=== PATIENT | male | born 1965 | race Caucasian/White ===

== ENCOUNTER 2023-08-07 09:44 | Outpatient (CLI) | payer MEDICARE, SELFPAY ==
--- NOTE | 2023-08-07 11:00 | NEURO_ITS ---
Impression: # Complains of left hand numbness. Not diabetic. # Left sensory Carpal Tunnel Syndrome. 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 # Normal needle/EMG exam. Nerve Conduction Studies Anti Sensory Summary Table Stim Site NR Peak (ms) P-T Amp (?V) Site1 Site2 Delta-P (ms) Dist (cm) John (m/s) Left Median Anti Sensory (2-3nd Digit) Wrist 4.4 9.3 Wrist 2-3nd Digit 4.4 14.0 32 Wrist 4.5 16.5 Wrist 2-3nd Digit 4.4 14.0 32 Left Radial Anti Sensory (Base 1st Digit) Wrist 2.1 30.2 Wrist Base 1st Digit 2.1 0.0 Left Ulnar Anti Sensory (5th Digit) Wrist 2.7 27.7 Wrist 5th Digit 2.7 14.0 52 Motor Summary Table Stim Site NR Onset (ms) O-P Amp (mV) Site1 Site2 Delta-0 (ms) Dist (cm) John (m/s) Left Median Motor (Abd Poll Brev) Wrist 3.7 6.0 Elbow Wrist 6.4 31.0 48 Elbow 10.1 2.9 Left Ulnar Motor (Abd Dig Minimi) Wrist 2.5 4.2 A Elbow Wrist 6.9 32.0 46 A Elbow 9.4 3.0 B Elbow Wrist 4.4 22.0 50 B Elbow 6.9 3.5 F Wave Studies NR F-Lat (ms) L-R F-Lat (ms) Left Median (Mrkrs) (Abd Poll Brev) 30.63 Left Ulnar (Mrkrs) (Abd Dig Min) 30.23 EMG Side Muscle Nerve Root Ins Act Fibs Amp Dur Recrt Comment Left 1stDorInt Ulnar C8-T1 Nml Nml Nml Nml Nml Left Ext Indicis Radial (Post Int) C7-8 Nml Nml Nml Nml Nml Left Ext Digitorum Radial (Post Int) C7-8 Nml Nml Nml Nml Nml Left BrachioRad Radial C5-6 Nml Nml Nml Nml Nml Left PronatorTeres Median C6-7 Nml Nml Nml Nml Nml Left Abd Poll Brev Median C8-T1 Nml Nml Nml Nml Nml Left ABD Dig Min Ulnar C8-T1 Nml Nml Nml Nml Nml MTDD
== END 2023-08-07 09:45 | disposition home or self-care (01) ==
LOC: ANHNEURO 09:49
PROVIDERS: PCP Internal Medicine; Visit Provider Internal Medicine
DX: G56.02 Carpal tunnel syndrome, left upper limb (principal); G56.22 Lesion of ulnar nerve, left upper limb
CPT/HCPCS: 95886; 95909

== ENCOUNTER 2023-10-04 06:00 | Day surgery (SDC) | payer MEDICARE, SELFPAY ==
[2023-09-21 10:17] VITALS: BMI 35.2
--- NOTE | 2023-10-03 10:00 | P.PNAN_ITS ---
Anes - Eval Pre Procedure Procedure: Operation Date: 10/04/23 07:30 Proposed Procedures p Endoscopic Left Carpal Tunnel Release, Possible Open Carpal Tunnel Release - Karina Sanders MD s Left Cubital Tunnel Release - Karina Sanders MD Date/Time: 10/03/23 10:00 Pre Op Diagnosis: Left Carpal Tunnel and Lesion Left Ulnar Nerve Patient Data Age: 58 Gender: M Height: 1.78 m Weight: 111.5 kg Allergies Allergy/AdvReac Type Severity Reaction Status Date / Time Penicillins Allergy Mild Hives Verified 09/21/23 10:23 Home Medications Medication Instructions Recorded Confirmed Type allopurinol 100 mg tablet 100 mg PO DAILY 09/12/23 09/21/23 History amlodipine 10 mg tablet 10 mg PO DAILY 09/12/23 09/21/23 History atorvastatin 20 mg tablet 20 mg PO DAILY 09/12/23 09/21/23 History buspirone 30 mg tablet 30 mg PO BID 09/12/23 09/21/23 History calcitriol 0.25 mcg capsule 0.25 mcg PO DAILY 09/12/23 09/21/23 History cariprazine 6 mg capsule (Vraylar) 6 mg PO DAILY 09/12/23 09/21/23 History cholecalciferol (vitamin D3) 1,250 1,250 mcg PO WEEKLY 09/12/23 09/21/23 History mcg (50,000 unit) capsule dapagliflozin propanediol 5 mg 5 mg PO DAILY 09/12/23 09/21/23 History tablet (Farxiga) doxazosin 2 mg tablet 2 mg PO DAILY 09/12/23 09/21/23 History lisinopril 40 mg tablet 40 mg PO DAILY 09/12/23 09/21/23 History metformin 1,000 mg tablet 1,000 mg PO BID 09/12/23 09/21/23 History propranolol 40 mg tablet 40 mg PO Q12H 09/12/23 09/21/23 History quetiapine 25 mg tablet 25 mg PO TID 09/12/23 09/21/23 History vortioxetine 20 mg tablet 20 mg PO DAILY 09/12/23 09/21/23 History (Trintellix) testosterone 100 mg/mL 100 mg IM DIRECTED 09/21/23 09/21/23 History intramuscular suspension Results Review: All pre-operative results and documents have been reviewed as part of the pre- operative evaluation. FORMERLY [facility], [facility] Past Medical History Medical History (Updated 10/03/23 @ 10:03 by Joe Merchant Jr., CRNA) Anxiety BPH (benign prostatic hyperplasia) Depression Diabetes Entrapment of left ulnar nerve at elbow Gout HTN (hypertension) with goal to be determined Hyperlipidemia Left carpal tunnel syndrome Social History Social History Smoking status: Never smoker Second hand tobacco smoke exposure: Yes Substance use type: does not use Living arrangements: with family Spiritual care concerns: No Exam Day of Procedure 10/03/23 10:00 Patient weight: obese
--- NOTE | 2023-10-03 10:20 | P.PNAN_ITS ---
Anes - Initial Pre Proc Eval Procedure: Operation Date: 10/04/23 07:30 Proposed Procedures p Endoscopic Left Carpal Tunnel Release, Possible Open Carpal Tunnel Release - Karina Sanders MD s Left Cubital Tunnel Release - Karina Sanders MD Date/Time: 10/03/23 10:20 Surgeon: Karina Sanders MD Pre Op Diagnosis: Left Carpal Tunnel and Lesion Left Ulnar Nerve Patient Data Age: 58 Gender: M Height: 1.78 m Weight: 111.5 kg Allergies Allergy/AdvReac Type Severity Reaction Status Date / Time Penicillins Allergy Mild Hives Verified 10/04/23 06:15 Home Medications Medication Instructions Recorded Confirmed Type allopurinol 100 mg tablet 100 mg PO DAILY 09/12/23 10/04/23 History amlodipine 10 mg tablet 10 mg PO DAILY 09/12/23 10/04/23 History atorvastatin 20 mg tablet 20 mg PO DAILY 09/12/23 10/04/23 History buspirone 30 mg tablet 30 mg PO BID 09/12/23 10/04/23 History calcitriol 0.25 mcg capsule 0.25 mcg PO DAILY 09/12/23 10/04/23 History cariprazine 6 mg capsule (Vraylar) 6 mg PO DAILY 09/12/23 10/04/23 History cholecalciferol (vitamin D3) 1,250 1,250 mcg PO WEEKLY 09/12/23 10/04/23 History mcg (50,000 unit) capsule dapagliflozin propanediol 5 mg 5 mg PO DAILY 09/12/23 10/04/23 History tablet (Farxiga) doxazosin 2 mg tablet 2 mg PO DAILY 09/12/23 10/04/23 History lisinopril 40 mg tablet 40 mg PO DAILY 09/12/23 10/04/23 History metformin 1,000 mg tablet 1,000 mg PO BID 09/12/23 10/04/23 History propranolol 40 mg tablet 40 mg PO Q12H 09/12/23 10/04/23 History quetiapine 25 mg tablet 25 mg PO TID 09/12/23 10/04/23 History vortioxetine 20 mg tablet 20 mg PO DAILY 09/12/23 10/04/23 History (Trintellix) testosterone 100 mg/mL 100 mg IM DIRECTED 09/21/23 10/04/23 History intramuscular suspension Patient hx anesthesia problems: none Family hx anesthesia problems: none Results Review: All pre-operative results and documents have been reviewed as part of the pre- operative evaluation. FORMERLY [facility], [facility] Past Medical History Medical History Anxiety BPH (benign prostatic hyperplasia) Depression Diabetes Entrapment of left ulnar nerve at elbow Gout HTN (hypertension) with goal to be determined Hyperlipidemia Left carpal tunnel syndrome Social History Social History Smoking status: Never smoker Second hand tobacco smoke exposure: Yes Substance use type: does not use Living arrangements: with family Spiritual care concerns: No Anes - Eval Final PreProcedure Day of Procedure 10/03/23 10:20 Patient weight: obese Results Review: All pre-operative results and documents have been reviewed as part of the pre- operative evaluation. Informed Consent: The patient's anesthetic plan and its attendant risks and benefits were discussed with the patient/family/POA. Questions were solicited and answers provided to the satisfaction of the patient/family/POA.
[2023-10-04 06:16] VITALS: BP 141/91; PULSE 71; RESP 15; O2SAT 96
[2023-10-04 06:31] LABS: Glucose Point of Care 131 mg/dl (65-105)
--- NOTE | 2023-10-04 06:51 | WPDHPUPDATE1 ---
History and Physical Update Update Date/Time: 10/04/23 06:51 Patient seen and examined in pre-operative holding area. No interval change in medical history or symptoms. Patient recalls previous discussion of benefits and alternatives to procedure. Continues to desire to proceed with left endoscopic possible open carpal tunnel release and left cubital tunnel release. Reviewed procedure, post-op expectations and risks including but not limited to bleeding, infection, injury to tendon/nerve/vessel, decreased hand function, stiffness, RSD, no change or worsening of symptoms. I discussed the possible use of assistants and their participation in the case. Patient stated understanding and signed the consent form wishing to proceed.
--- NOTE | 2023-10-04 06:51 | W.PM.PROC2 ---
Procedure Note - Detailed Date of Procedure 10/04/23 Pre-op Diagnosis Left Carpal Tunnel and cubital tunnel syndrome Post-op Diagnosis Same Procedure Performed left ectr and CuTR Surgeon Karina Sanders MD Rn Document Improvement Specialist john ayala pa-c Anesthesia MAC Description of Procedure INFORMED CONSENT: The patient was seen and examined and marked in the pre-op area.? The patient signed the consent form. PROCEDURE IN DETAIL:The patient taken back to OR on the stretcher in supine position. Time out performed with anesthesia, surgeon and staff agreeing on patient's name site and surgery to be performed SCDs were placed on the lower extremities and inflated. A tourniquet was placed on {left} upper extremity and antibiotics given IV After anesthesia administered sedation I injected {10}cc 1%lido with epi and 0.5% marcaine plain at the operative sites The?{left upper extremity}?was prepped and draped in sterile fashion the??{left upper extremity} was? exsanguinated with Esmarch bandage and tourniquet inflated to 250mmHg I made a transverse incision in the {left} volar distal wrist crease through skin and dermis with 15 blade scalpel.? Littler scissors spread down to antebrachial fascia. A small incision was made in antebrachial fascia allowing access to Carpal tunnel. I proceeded with sequential dilation staying in line with the ring finger and hugging the hook of the hamate.? I then used the synovial elevator to free any adhesions from the underside of the transverse carpal ligament. Next I was able to insert the Microaire endoscopic carpal tunnel device with direct visualization of the transverse fibers on the monitor and proceeded with complete segmental retrograde release of the ligament in its entirety.? I irrigated with normal saline and closed with 4-0 monocryl for dermis and subcuticular closure. I next proceeded with making a longitudinal incision between two heads for flexor carpi ulnaris at end of {left} cubital tunnel with 15 blade scalpel.? Littler scissors were used to spread down to FCU fascia.? An incision was made in FCU fascia and ulnar nerve identified exiting cubital tunnel.? I proceeded with complete retrograde release of the cubital tunnel including 7cm proximal for the intermuscular septum.? The nerve was round though a central section was somewhat white and sclerotic in appearance. epineurolysis did not yield any change in appearance.? There was no subluxation on full elbow range of motion. ? I irrigated with normal saline and closure with 4-0 monocryl for dermis and subcuticular. The incisions were covered with Dermabond then 4x4s, colette, and a posterior elbow and volar wrist splint for patient safety, security and comfort and secured with venus bandages after the tourniquet was let down noting the hand was warm and well perfused.? Patient awaken from anesthesia and transferred to recovery in stable condition Complications - none EBL- 1cc Disposition - home in stable conditions john ayala pa-c was essential for positioning, retraction, closure and dressing placement [facility] Billing Surgery - Charge Forward: Surgery Billing ([id number] and [id number] for john)
[2023-10-04] MEDS: LACTATED RINGERS 1,000 ML 30 ML IV CONT (06:53)
[2023-10-04] MEDS: CLINDAMYCIN 900 MG/NS 50 ML 900 MG/50 ML PIGGYBACK 50 MG IVPB (07:07)
[2023-10-04] MEDS: BUPivacaine HCL 0.5% 10 ML AMP 5 ML INFILTRATE (07:29)
[2023-10-04] MEDS: LIDO 1%/EPINEPHRINE 1:100,000 10 ML VIAL 5 ML INFILTRATE (07:29)
[2023-10-04 08:00] VITALS: BP 102/69; PULSE 73; RESP 16; O2SAT 94
[2023-10-04 08:10] VITALS: BP 106/71; PULSE 65; RESP 20; O2SAT 94
--- NOTE | 2023-10-04 08:19 | WPDANESPN ---
Anes - Prog Note Post-Op Date/Time: 10/04/23 08:19 Cardiovascular status: normal Respiratory status: normal Airway patency: baseline Mental status: baseline Post-Op hydration status: normal Vital Signs: Last Vital Signs Pulse 65 10/04/23 08:10 Resp 20 10/04/23 08:10 BP 106/71 10/04/23 08:10 Pulse Ox 94 10/04/23 08:10 O2 Del Method Room Air 10/04/23 08:10 Pain Score (VAS): 0/10 10/04/23 06:23 POC Capillary Glucose 131 H Patient Feedback: Patient satisfied with anesthetic care.
[2023-10-04 08:20] VITALS: BP 109/76; PULSE 64; RESP 20
== END 2023-10-04 08:36 | disposition home or self-care (01) ==
PROVIDERS: PCP Internal Medicine; Visit Provider Plastic Surgery
PROC: 01N54ZZ Release Median Nerve, Percutaneous Endoscopic Approach (ICD-10-PCS; CPT 29848; principal; 2023-10-04 07:30)
PROC: (CPT 64718; 2023-10-04 07:30)
DX: G56.02 Carpal tunnel syndrome, left upper limb (principal); G56.22 Lesion of ulnar nerve, left upper limb
CPT/HCPCS: 29848; 64718

== ENCOUNTER 2024-06-05 09:46 | Outpatient (CLI) | payer MEDICARE, MEDICAID, SELFPAY ==
--- NOTE | 2024-06-05 10:11 | ECG_ITS ---
Test Date: 2024-06-05 10:18:31 Measurements Intervals [place] Rate: 61 P: 43 UT: 176 QRS: 36 QRSD: 97 T: 52 QT: 395 QTc: 399 Interpretive Statements SINUS RHYTHM NORMAL ECG No previous ECG available for comparison Electronically Signed On 06-05-2024 10:31:14 CDT by Micha Kumar D.O.
--- OUTSIDE RECORDS SUMMARY | 2024-06-05 10:23 | XMS_ITS ---
Author Organization [facility] Office Address [address] [facility] [address] [facility] [address] [place] [address] Care Team Providers Care Sole Filler Name Role Phone Danyel Tello Unavailable [phone] MEDICATIONS Medication SIG (Take, Route, Frequency, Duration) Notes Start Date End Date Status Cardura 2 MG 1 tablet Orally Once a day for 90 days 03/15/2022 Active Calcitriol 0.25 MCG 1 capsule Orally Onc e a day for 90 day(s) 11/01/2022 04/13/2024 Active Doxazosin Mesylate 2 MG 1 tablet Orally Once a day for 90 days 11/01/2022 Active Allopurinol 100 MG TAKE 1 TABLET BY GIANCARLO TH EVERY DAY for 90 Active Encounters Encounter Location Date Provider Diagnosis [facility] [address] [facility] [address] [place] [address] 02/06/2024 Danyel Tello Chronic kidney disea se, stage 3 unspecified N18.30 ; Essential (primary) hypertension I10 ; Hypo-osmolality and hyponatremia E87.1 and Renal osteodystrophy N25.0 ASSESSMENTS Encounter Date Diagnosis Assessment Notes Treatment Notes Treatment Clinical Notes Section Notes 02/06/2024 Chronic kidney disease, stage 3 unspecified (ICD-10 - N18.30) 02/06/2024 Essential (primary) hypertension (ICD-10 - I10) 02/06/2024 Hypo-osmolality and hyponatremia (ICD-10 - E87.1) 02/06/2024 Renal osteodystrophy (ICD-10 - N25.0) PLAN OF TREATMENT Next Appt Details Provider Name:Danyel Tello , 08/20/2024 02:45:00 PM, [address] [facility], [facility] [address], [place], [address], Progress Notes * GUANACO ECHEVARRIADOB: [birth year] (59 yo M)Acc No.[id number]:02/06/2024 Progress Notes Patient: GUANACO ECHEVARRIA Provider: MD SHAHLA, CarolinC.P, F.A.S.N. :1965 Age:59 Y Sex:Male Date:02/06/2024 Address:[address] [place] [address] Subjective: * Chief Complaints: * * Medical History: * Medications: Taking Cardura 2 MG Tablet 1 tablet Orally Once a day , Taking Doxazosin Mesylate 2 MG Tablet 1 tablet Orally Once a day , Taking Calcitriol 0.25 MCG Capsule 1 capsule Orally Once a day , stop date 04/13/2024, Taking Allopurinol 100 MG Tablet TAKE 1 TABLET BY MOUTH EVERY DAY Objective: Assessment: * Assessment: 1. Chronic kidney disease, stage 3 unspecified - N18.30 2. Essential (primary) hypertension - I10 3. Hypo-osmolality and hyponatremia - E87.1 4. Renal osteodystrophy - N25.0 Plan: * Treatment: * Billing Information: * Visit Code: [id number] Office Visit, Est Pt., Level 4. * Procedure Codes: * Sign off status: Pending * Provider: MD SHAHLA, Lukasz.[place].C.P, F.A.S.N. Date: 02/06/2024
--- OUTSIDE RECORDS SUMMARY | 2024-06-05 10:23 | XMS_ITS ---
Author Organization [facility] [place] Address [address] [place] [address] Care Team Providers Care Case Advocate Name Role Phone Jaime Fall MD Primary Care Provider Maninder Al Unavailable [phone] Allergies Allergen (clinical drug ingredient) Drug/Non Drug Allergy documented on EMR Reaction Allergy Type Onset Date Status amoxicillin Amoxicillin Unknown Drug Allergy 06/20/2023 Ac tive Substance with penicillin structure and antibacterial mechanism of action (substance) Penicillins Unknown Drug Allergy 06/20/2023 Active REASON FOR VISIT Follow up medication eval Medications Medication SIG (Take, Route, Frequency, Duration) Notes Start Date End Date Status ACCU-CHEK GUIDE ME GLUCOSE METER *Reorder from [facility] for eRx and Interaction Alerts* 06/20/2023 Active Testosterone Cypionate 200 MG/ML Intramuscular 06/20/2023 Active metFORMIN HCl 1000 MG Oral 06/20/2023 Active Doxazosin Mesylate 2 MG Oral 06/20/2023 Active Allopurinol 100 MG Oral 06/20/2023 Active ACCU-CHEK GUIDE TEST STRIPS *Reorder from [facility] for eRx and Interaction Alerts* 06/20/2023 Active amLODIPine Besylate 10 MG Oral 06/20/2023 Active Ergocalciferol 1.25 MG (35737 UT) Oral 06/20/2023 Active ACCU-CHEK FASTCLIX LANCET DRUM MISCELLANEOUS *Reorder from [facility] for eRx and Interaction Alerts* 06/20/2023 Active Lisinopril 40 MG Oral 06/20/2023 Ac tive Calcitriol 0.25 MCG Oral 06/20/2023 Active Trintellix 20 MG 1 tablet Oral Once a day for 90 days Active Atorvastatin Calcium 20 MG Oral 06/20/2023 Active Vraylar 6 mg 1 tablet Oral daily for 90 days Active Farxiga 5 MG Oral 06/20/2023 Active QUEtiapine Fumarate 25 MG 3 tablets Oral daily for 90 days take 2 tablets it the morning and 1 tablet at bedtime Active Propranolol HCl 40 MG 1 tablet Oral Twic e a day for 90 days Active busPIRone HCl 30 MG 1 tablet Oral Twice a day for 90 days Active Social History Tobacco Use: Social History Observation Description Date Details (start date - stop date) Never Smoker NA - NA Sex Assigned At : Social History Observation Description Sex Assigned At Male Tobacco Control (Standard) Question Answer Notes Tobacco use: Nonsmoker AUDIT-C (Standard) Question Answer Notes Did you have a drink containing alcohol in the p ast year? No Vital Signs Blood pressure systolic 145 mm Hg 03/20/19 25 Blood pressure diastolic 87 mm Hg 025 Heart Rate 70 /min 03/20/2024 Height 70.00 in 03/20/2024 Weight 251 lbs 03/20/2024 BMI 36.01 kg/m2 03/20/2024 Height-cm 177.80 cm 03/20/2024 Weight-kg 113.85 kg 03/20/2024 Encounters Encounter Location Date Provider Diagnosis [facility] [address] [address] 03/20/2024 Maninder Collins Generalized anxiety disorder F41.1 ; Bipolar disorder, unspecified F31.9 ; Obsessive-compulsive disorder, unspecified F42.9 and Panic disorder [episodic paroxysmal anxiety] without agoraphobia F41.0 Assessments Encounter Date Diagnosis (ICD Code) Assessment Notes Treatment Notes Treatment Clinical Notes Section Notes 03/20/2024 Generalized anxiety disorder (ICD-10 - F41.1) 1. Bipolar Disorder: - Patient reports a couple of mild depressive episodes but no manic or hypomanic episodes since the last visit in December. - Currently on quetiapine 25 mg (2 tablets in the morning, 1 at bedtime), Trintellix 20 mg daily, and Vraylar 6 mg daily. Plan: - Continue the current medication regimen as it appears to be effective. - Monitor for any changes in mood or new episodes. 2. Anxiety: - Patient reports anxiety has been manageable, with some recent stress due to a friend's hospitalization. - Currently on BuSpar 30 mg twice a day and Propranolol 40 mg twice a day. Plan: - Continue the current medication regimen. - Encourage the patient to utilize coping strategies and seek support as needed. 3. Obsessive-Compuls kera Disorder (OCD): - Patient reports significant improvement in OCD symptoms with the current medication regimen. Plan: - Continue Vraylar, Trintellix, and Seroquel as they seem to be effective in managing OCD symptoms. - Monitor for any changes or worsening of symptoms. 4. Panic Attacks: - Patient reports a couple of mild panic attacks, managed with leftover Xanax. Plan: - Continue monitoring the frequency and severity of panic attacks. - Consider discussing a PRN medication for panic attacks if they become more frequent or severe. 5. Sleep Disturbance: - Patient reports difficulty sleeping last night and occasional waking up in the middle of the night. Plan: - Monitor sleep patterns and consider adjustments to the medication regimen or the addition of sleep hygiene strategies if sleep disturbances persist or worsen. 6. Medication refills: Plan: - All prescriptions have been sent to [facility] for a 90-day supply with one refill. 7. Follow-up: - Schedule a follow-up appointment in 4 months. Overall, the patient's mental health appears to be stable with the current medication regimen. Encourage the patient to report any changes in symptoms or new concerns. Continue to monitor and adjust treatment as needed. 03/20/2024 Bipolar disorder, unspecified (ICD-10 - F31.9) 1. Bipolar Disorder: - Patient reports a couple of mild depressive episodes but no manic or hypomanic episodes since the last visit in December. - Currently on quetiapine 25 mg (2 tablets in the morning, 1 at bedtime), Trintellix 20 mg daily, and Vraylar 6 mg daily. Plan: - Continue the current medication regimen as it appears to be effective. - Monitor for any changes in mood or new episodes. 2. Anxiety: - Patient reports anxiety has been manageable, with some recent stress due to a friend's hospitalization. - Currently on BuSpar 30 mg twice a day and Propranolol 40 mg twice a day. Plan: - Continue the current medication regimen. - Encourage the patient to utilize coping strategies and seek support as needed. 3. Obsessive-Compuls kera Disorder (OCD): - Patient reports significant improvement in OCD symptoms with the current medication regimen. Plan: - Continue Vraylar, Trintellix, and Seroquel as they seem to be effective in managing OCD symptoms. - Monitor for any changes or worsening of symptoms. 4. Panic Attacks: - Patient reports a couple of mild panic attacks, managed with leftover Xanax. Plan: - Continue monitoring the frequency and severity of panic attacks. - Consider discussing a PRN medication for panic attacks if they become more frequent or severe. 5. Sleep Disturbance: - Patient reports difficulty sleeping last night and occasional waking up in the middle of the night. Plan: - Monitor sleep patterns and consider adjustments to the medication regimen or the addition of sleep hygiene strategies if sleep disturbances persist or worsen. 6. Medication refills: Plan: - All prescriptions have been sent to [facility] for a 90-day supply with one refill. 7. Follow-up: - Schedule a follow-up appointment in 4 months. Overall, the patient's mental health appears to be stable with the current medication regimen. Encourage the patient to report any changes in symptoms or new concerns. Continue to monitor and adjust treatment as needed. 03/20/2024 Obsessive-compu lsive disorder, unspecified (ICD-10 - F42.9) stable 1. Bipolar Disorder: - Patient reports a couple of mild depressive episodes but no manic or hypomanic episodes since the last visit in December. - Currently on quetiapine 25 mg (2 tablets in the morning, 1 at bedtime), Trintellix 20 mg daily, and Vraylar 6 mg daily. Plan: - Continue the current medication regimen as it appears to be effective. - Monitor for any changes in mood or new episodes. 2. Anxiety: - Patient reports anxiety has been manageable, with some recent stress due to a friend's hospitalization. - Currently on BuSpar 30 mg twice a day and Propranolol 40 mg twice a day. Plan: - Continue the current medication regimen. - Encourage the patient to utilize coping strategies and seek support as needed. 3. Obsessive-Compuls kera Disorder (OCD): - Patient reports significant improvement in OCD symptoms with the current medication regimen. Plan: - Continue Vraylar, Trintellix, and Seroquel as they seem to be effective in managing OCD symptoms. - Monitor for any changes or worsening of symptoms. 4. Panic Attacks: - Patient reports a couple of mild panic attacks, managed with leftover Xanax. Plan: - Continue monitoring the frequency and severity of panic attacks. - Consider discussing a PRN medication for panic attacks if they become more frequent or severe. 5. Sleep Disturbance: - Patient reports difficulty sleeping last night and occasional waking up in the middle of the night. Plan: - Monitor sleep patterns and consider adjustments to the medication regimen or the addition of sleep hygiene strategies if sleep disturbances persist or worsen. 6. Medication refills: Plan: - All prescriptions have been sent to [facility] for a 90-day supply with one refill. 7. Follow-up: - Schedule a follow-up appointment in 4 months. Overall, the patient's mental health appears to be stable with the current medication regimen. Encourage the patient to report any changes in symptoms or new concerns. Continue to monitor and adjust treatment as needed. 03/20/2024 Panic disorder [episodic paroxysmal anxiety] without agoraphobia (ICD-10 - F41.0) stable 1. Bipolar Disorder: - Patient reports a couple of mild depressive episodes but no manic or hypomanic episodes since the last visit in December. - Currently on quetiapine 25 mg (2 tablets in the morning, 1 at bedtime), Trintellix 20 mg daily, and Vraylar 6 mg daily. Plan: - Continue the current medication regimen as it appears to be effective. - Monitor for any changes in mood or new episodes. 2. Anxiety: - Patient reports anxiety has been manageable, with some recent stress due to a friend's hospitalization. - Currently on BuSpar 30 mg twice a day and Propranolol 40 mg twice a day. Plan: - Continue the current medication regimen. - Encourage the patient to utilize coping strategies and seek support as needed. 3. Obsessive-Compuls kera Disorder (OCD): - Patient reports significant improvement in OCD symptoms with the current medication regimen. Plan: - Continue Vraylar, Trintellix, and Seroquel as they seem to be effective in managing OCD symptoms. - Monitor for any changes or worsening of symptoms. 4. Panic Attacks: - Patient reports a couple of mild panic attacks, managed with leftover Xanax. Plan: - Continue monitoring the frequency and severity of panic attacks. - Consider discussing a PRN medication for panic attacks if they become more frequent or severe. 5. Sleep Disturbance: - Patient reports difficulty sleeping last night and occasional waking up in the middle of the night. Plan: - Monitor sleep patterns and consider adjustments to the medication regimen or the addition of sleep hygiene strategies if sleep disturbances persist or worsen. 6. Medication refills: Plan: - All prescriptions have been sent to [facility] for a 90-day supply with one refill. 7. Follow-up: - Schedule a follow-up appointment in 4 months. Overall, the patient's mental health appears to be stable with the current medication regimen. Encourage the patient to report any changes in symptoms or new concerns. Continue to monitor and adjust treatment as needed. Plan Of Treatment Medication Medication Name Sig Start Date Stop Date Notes Trintellix 20 MG 1 tablet Oral Once a day for 90 days Vraylar 6 mg 1 tablet Oral daily for 90 days QUEtiapine Fumarate 25 MG 3 tablets Oral daily for 90 days Propranolol HCl 40 MG 1 tablet Oral Twic e a day for 90 days busPIRone HCl 30 MG 1 tablet Oral Twice a day for 90 days Treatment Notes Assessment Notes Obsessive-compulsive disorder, unspecifi ed stable Panic disorder [episodic paroxysmal anxi ety] without agoraphobia stable Next Appt Details Follow Up: 3 Months, Reason: f/u bipolar d/o Provider Name:Maninder aguayo, 06/09/2024 09:00:00 AM, [address], [facility] [address], [place], [address], Progress Notes * GUANACO ECHEVARRIADOB: [birth year] (59 yo M)Acc No.[id number]:03/20/2024 Patient: GUANACO FIORE Provider: SCAR OVIEDOHNP :1965 A ge:59 Y S ex:Male Date:03/20/2024 Address:[address] [place], [place] [id number] Pcp:Jaime Fall MD Subjective: * Chief Complaints: * F ollow up medication eval * HPI: D epression Screening: the note is transcribed using speech recognition software. It is a reflection of a visit with the patient. It might have some inaccuracy, including medication names and transcribing errors, though efforts have been made to correct them. Chief complaint- Depression, anxiety, OCD, sleep disturbances. The patient reports experiencing a couple of depressive episodes since the last visit in December, though not severe and able to shake off . No manic or hypomanic episodes reported. Sleep disturbances are noted, with the patient waking at 2:30 AM and sometimes remaining awake. The patient reports some recent stress due to a best friend's hospitalization for heart failure. OCD symptoms have significantly improved with the current medication regimen of Vraylar, Trintellix, and Seroquel. The patient denies any medication-related problems. The patient experienced a couple of panic attacks, described as not really bad . These attacks were managed with previously prescribed Xanax. The patient reports difficulty identifying triggers for these panic attacks. The patient's current medication regimen includes BuSpar 30 mg twice a day, Propranolol 40 mg twice a day, Quetiapine 25 mg (2 tablets in the morning, one at bedtime), Trintellix 20 mg daily,Vraylar 6 mg daily, and Xanax as needed for panic attacks. The patient reports feeling stressed due to a best friend being hospitalized with heart failure. Coping mechanisms include engaging in Bible reading. The patient also mentions experiencing hip pain. JOSÉ-7 (2018 Edition) F eeling nervous, anxious, or on edge?Several days, N ot being able to stop or control worrying S everal days, W orrying too much about different things S everal days, T rouble relaxing S everal days, B eing so restless that it is hard to sit still S everal days, B ecoming easily annoyed or irritable S everal days, F eeling afraid as if something awful might happen S everal days, If you checked any problems, how difficult have they made it for you to do your work, take care of things at home, or get along with other people? S omewhat difficult. C [place]-Suicide Severity Rating Scale: Suicide Risk (CSRS-screener) i n the past one month Have you wished you were or wished you could go to sleep and not wake up? N o, i n the past one month Have you actually had any thoughts of killing yourself? N o, H ave you ever done anything, started to do anything, or prepared to do anything to end your life? N o. D epression screening: PHQ-9 L ittle interest or pleasure in doing things S everal days, F eeling down, depressed, or hopeless S everal , T rouble falling or staying asleep, or sleeping too much S everal days, F eeling tired or having little energy N ot at all, P oor appetite or overeating N ot at all, F eeling bad about yourself or that you are a failure, or have let yourself or your family down S everal days, T rouble concentrating on things, such as reading the newspaper or watching television S ever, M oving or speaking so slowly that other people could have noticed; or the opposite, being so fidgety or restless that you have been moving around a lot more than usual N ot at all, T houghts that you would be better off or of hurting yourself in some way N ot at all, T otal Score 5, I nterpretation M ild Depression. I ntervention D epression Screening Findings?Negative, S uicide Risk Assessment Performed . H istory of Presenting Problem: Medication Side Effects d enies side effects. A nxiety?symptoms are stable. Has had a couple panic attacks, mild. Xanax helped. Quality of OCD Symptoms: o bsessive, fearful thoughts; o bsessive, worrying thoughts; c ompulsive, anxiety decreasing behaviors Associated Symptoms OCD: c hecking, saying phrases in my head, intrusive thoughts, routines Obsessive Compulsive Severity: m oderateNotes:persistent , but states it is manageable.. D epression c ouple depressive episodes, mild. Didn't last long. . M ood lability b ipolar d/o. S leep disturbance g ets up in the night. * Medical History: * Surgical History: * Hospitalization/Major Diagno stic Procedure: * Social History: T obacco Use: T obacco Control (Standard) T obacco use: N onsmoker. M igrated Social History: M igrated Social History: Alcohol Intake: None 05/17/2019,Tobacco Years: Never smoker 05/17/2019. D rug/Alcohol: A MELITON-C (Standard) D id you have a drink containing alcohol in the past year? N o.? M iscellaneous: A dvance Care Planning A re you your own decision-maker Y es, D o you have Power of Athletic Agent for Health or Medical? N o. * Medications: T akingAtorvastatin Calcium 20 MG Tablet Oral Farxiga 5 MG Tablet Oral Calcitriol 0.25 MCG Capsule Oral Ergocalciferol 1.25 MG (26262 UT) Capsule Oral ACCU-CHEK GUIDE TEST STRIPS , Notes to Pharmacist: *Reorder from [facility] for eRx and Interaction Alerts*amLODIPine Besylate 10 MG Tablet Oral ACCU-CHEK FASTCLIX LANCET DRUM EACH MISCELLANEOUS , Notes to Pharmacist: *Reorder from [facility] for eRx and Interaction Alerts*Lisinopril 40 MG Tablet Oral Allopurinol 100 MG Tablet Oral metFORMIN HCl 1000 MG Tablet Oral Doxazosin Mesylate 2 MG Tablet Oral ACCU-CHEK GUIDE ME GLUCOSE METER , Notes to Pharmacist: *Reorder from [facility] for eRx and Interaction Alerts*Testosterone Cypionate 200 MG/ML Solution Intramuscular busPIRone HCl 30 MG Tablet 1 tablet Oral Twice a day QUEtiapine Fumarate 25 MG Tablet 3 tablets Oral daily take 2 tablets it the morning and 1 tablet at bedtimePropranolol HCl 40 MG Tablet 1 tablet Oral Twice a day Trintellix 20 MG Tablet 1 tablet Oral Once a day Vraylar 6 mg Capsule 1 tablet Oral daily Medication List reviewed and reconciled with the patientTaking Atorvastatin Calcium 20 MG Tablet Oral Taking Farxiga 5 MG Tablet Oral Taking Calcitriol 0.25 MCG Capsule Oral Taking Ergocalciferol 1.25 MG (53313 UT) Capsule Oral Taking ACCU-CHEK GUIDE TEST STRIPS , Notes to Pharmacist: *Reorder from [facility] for eRx and Interaction Alerts*Taking amLODIPine Besylate 10 MG Tablet Oral Taking ACCU-CHEK FASTCLIX LANCET DRUM EACH MISCELLANEOUS , Notes to Pharmacist: *Reorder from [facility] for eRx and Interaction Alerts*Taking Lisinopril 40 MG Tablet Oral Taking Allopurinol 100 MG Tablet Oral Taking metFORMIN HCl 1000 MG Tablet Oral Taking Doxazosin Mesylate 2 MG Tablet Oral Taking ACCU-CHEK GUIDE ME GLUCOSE METER , Notes to Pharmacist: *Reorder from [facility] for eRx and Interaction Alerts*Taking Testosterone Cypionate 200 MG/ML Solution Intramuscular Taking busPIRone HCl 30 MG Tablet 1 tablet Oral Twice a day Taking QUEtiapine Fumarate 25 MG Tablet 3 tablets Oral daily take 2 tablets it the morning and 1 tablet at bedtimeTaking Propranolol HCl 40 MG Tablet 1 tablet Oral Twice a day Taking Trintellix 20 MG Tablet 1 tablet Oral Once a day Taking Vraylar 6 mg Capsule 1 tablet Oral daily Medication List reviewed and reconciled with the patient * Allergies: A moxicillin: Allergy - Onset Date 06/20/2023enicillins: Allergy - Onset Date 06/20/2023no[Allergies Verified] Objective: * Vitals: B P:145/87mm Hg, HR:70/min, Wt:251lbs, Wt-k.85 kg, Ht: 70.00 in, Ht-cm: 177.80 cm, BMI:36.01Index, Body Surface Area: 2.37. * Examination: P sychiatry: Appearance: w ell-groomed, well-nourished, ... , well-groomed, well-nourished, .... Abnormal body movements: n one. Affect / mood: a ppropriate, full range , appropriate, full range. Attention: g ood , good. Attitude: c ooperative , cooperative. Suicidal ideation: n one , none. Memory status: n o impairment noted , no impairment noted.? Degree of awareness of surroundings: w ithin normal limits , within normal limits. Delusions: n o , no. Hallucinations: n o , no. Insight: g ood , good. Intellectual functioning: n o impairment noted , no impairment noted. Judgement: g ood , good. Orientation: a wake, alert and oriented x 3 , awake, alert and oriented x 3. Perceptual disorders: n o perceptual disorder noted , no perceptual disorder noted. Psychomotor activity: w ithin normal range , within normal range. Speech / language: a ppropriate pitch/modulation, clear and coherent, normal rate, volume, and articulation (RVR), proper grammar used , appropriate pitch/modulation, clear and coherent, normal rate, volume, and articulation (RVR), proper grammar used. Thought content: a ppropriate , appropriate. Thought process: i ntact , intact. G eneral Examination: - Mental Status Examination: - Patient reported experiencing a few mild depressive episodes which he was able to manage. - No manic or hypomanic episodes reported. - Sleep disturbances noted, with patient waking up around 2:30 AM and sometimes staying awake until 3 or 4 AM. - Anxiety levels described as okay with recent stress due to a friend's health issues. - No significant issues with OCD symptoms reported; patient feels they are well-controlled with current medication regimen. - Patient reported occasional panic attacks, which were managed with leftover medication. - Physical Examination: - Hip discomfort noted; patient has seen an orthopedic doctor and received an injection for inflammation. - MRI scheduled for the right hip due to concerns identified by the orthopedic doctor. Assessment: * Assessment: 1. B ipolar disorder, unspecified - F31.9 (Primary) 2 . G eneralized anxiety disorder - F41.1 3 . O bsessive-compulsive disorder, unspecified - F42.9 ? 4 . P anic disorder [episodic paroxysmal anxiety] without agoraphobia - F41.0 ? 1. Bipolar Disorder: - Patient reports a couple of mild depressive episodes but no manic or hypomanic episodes since the last visit in December. - Currently on quetiapine 25 mg (2 tablets in the morning, 1 at bedtime), Trintellix 20 mg daily, and Vraylar 6 mg daily. Plan: - Continue the current medication regimen as it appears to be effective. - Monitor for any changes in mood or new episodes. 2. Anxiety: - Patient reports anxiety has been manageable, with some recent stress due to a friend's hospitalization. - Currently on BuSpar 30 mg twice a day and Propranolol 40 mg twice a day. Plan: - Continue the current medication regimen. - Encourage the patient to utilize coping strategies and seek support as needed. 3. Obsessive-Compulsive Disorder (OCD): - Patient reports significant improvement in OCD symptoms with the current medication regimen. Plan: - Continue Vraylar, Trintellix, and Seroquel as they seem to be effective in managing OCD symptoms. - Monitor for any changes or worsening of symptoms. 4. Panic Attacks: - Patient reports a couple of mild panic attacks, managed with leftover Xanax. Plan: - Continue monitoring the frequency and severity of panic attacks. - Consider discussing a PRN medication for panic attacks if they become more frequent or severe. 5. Sleep Disturbance: - Patient reports difficulty sleeping last night and occasional waking up in the middle of the night. Plan: - Monitor sleep patterns and consider adjustments to the medication regimen or the addition of sleep hygiene strategies if sleep disturbances persist or worsen. 6. Medication refills: Plan: - All prescriptions have been sent to [facility] for a 90-day supply with one refill. 7. Follow-up: - Schedule a follow-up appointment in 4 months. Overall, the patient's mental health appears to be stable with the current medication regimen. Encourage the patient to report any changes in symptoms or new concerns. Continue to monitor and adjust treatment as needed. Plan: * Treatment: 2. G eneralized anxiety disorder Refill busPIRone HCl Tablet, 30 MG, 1 tablet, Oral, Twice a day, 90 days, 180 Tablet, Refills 1;?Refill Propranolol HCl Tablet, 40 MG, 1 tablet, Oral, Twice a day, 90 days, 180 Tablet, Refills 1. 3. O bsessive-compulsive disorder, unspecified Notes: stable 4. P anic disorder [episodic paroxysmal anxiety] without agoraphobia Notes: stable * Procedure Codes: 9 6127 BEHAV ASSMT W/SCORE & DOCD/STAND INSTRUMENT * Preventive Medicine: Counseling: B P Management: F IRST HYPERTENSIVE BP READING FOLLOW-UP PLAN: F ollow-up 1 month Follow up with your PCP, Kim CHAPMAN RECOMMENDATION: Kim chapman education, REFERRAL TO ALTERNATIVE / PRIMARY CARE PROVIDER: R eferral to general medical service Recommended Nonpharmacologic Interventions (Lifestyle Modifications) - Weight ReductionA heart-healthy diet , such as Dietary Approaches to Stop Hypertension (DASH) Eating PlanDietary Sodium RestrictionIncreased Physical ActivityModeration in alcohol consumption. * Follow Up: 3 Months (Reason: f/u bipolar d/o) * Billing Information: * Visit Code: 52117 OFFICE OUTPATIENT VISIT 25 MINUTES DETAILED HISTORY AND EXAM/MODERATE MEDICAL DECISION MAKING. * Procedure Codes: 83025 BEHAV ASSMT W/SCORE & DOCD/STAND INSTRUMENT. * UNTS RECEIVABLE ANALYST Sign off status: Completed true * Provider: SCAR OVIEDOHNP Date: 0 03/20/2024 Generated for Albert barrett/Jeanette/Paulasmitting on: 0 06/05/2024 10:22 AM CDT History and Physical Notes * HPI (History of Present Illness) Category Sub-Category Detail Notes Category Not es History of Presenting Problem Anxiety symptoms are stable. Has had a couple panic attacks, mild. Xanax helped. Quality of OCD Symptoms: obsessive, fearful thoughts; obsessive, worrying thoughts; compulsive, anxiety decreasing behaviors Associated Symptoms OCD: checking, saying phrases in my head, intrusive thoughts, routines Obsessive Compulsive Severity: moderateNotes:persistent , but states it is manageable. Depression couple depressive ep isodes, mild. Didn't last long. Sleep disturbance gets up in the night Mood lability bipolar d/o Medication Side Effects denies side effe cts Depression screening PHQ-9 Little inte rest or pleasure in doing things: Several days Feeling down, depressed, or hopeless: Se veral days Trouble falling or staying asleep, or sl eeping too much: Several days Feeling tired or having little energy: N ot at all Poor appetite or overeating: Not at all Feeling bad about yourself o r that you are a failure, or have let yourself or your family down: Several days Trouble concentrating on thi ngs, such as reading the newspaper or watching television: Several days Moving or speaking so slowly that other people could have noticed; or the opposite, being so fidgety or restless that you have been moving around a lot more than usual: Not at all Thoughts that you would be b ana off or of hurting yourself in some way: Not at all Total Score: 5 Interpretation: Mild Depression Intervention Depression Screening Findings: N egative Suicide Risk Assessment Performed: ____ Depression Screening JOSÉ-7 (2018 Edition) Feelin g nervous, anxious, or on edge: Several days Not being able to stop or control worryi ng: Several days Worrying too much about different things : Several days Trouble relaxing: Several days Being so restless that it is hard to sit still: Several days Becoming easily annoyed or irritable: Se veral days Feeling afraid as if something awful keyonna ht happen: Several days If you checked any problems, how difficult have they made it for you to do your work, take care of things at home, or get along with other people?: Somewhat difficult [place]-Suicide Severity Rating Scale Suicide Risk (CSRS-screener) in the past one month Have you wished you were or wished you could go to sleep and not wake up?: No in the past one month Have y ou actually had any thoughts of killing yourself?: No Have you ever done anything, started to do anything, or prepared to do anything to end your life?: No Examination Category Sub-Category Detail Notes Category Not es Psychiatry Appearance: well-groomed, we ll-nourished, ... , well-groomed, well-nourished, ... Attitude: cooperative , jackie ative Psychomotor activity: within normal rang e , within normal range Abnormal body movements: none Attention: good , good Degree of awareness of surroundings: wit hin normal limits , within normal limits Orientation: awake, alert and destiny ented x 3 , awake, alert and oriented x 3 Affect / mood: appropriate, full ra nge , appropriate, full range Speech / language: appropriate pitch/mo dulation, clear and coherent, normal rate, volume, and articulation (RVR), proper grammar used , appropriate pitch/modulation, clear and coherent, normal rate, volume, and articulation (RVR), proper grammar used Insight: good , good Judgement: good , good Thought process: intact , intact Thought content: appropriate , approp riate Perceptual disorders: no perceptual diso rder noted , no perceptual disorder noted Suicidal ideation: none , none Intellectual functioning: no impairment noted , no impairment noted Memory status: no impairment noted , no impairment noted Delusions: no , no Hallucinations: no , no General Examination - Mental Status Examination: - Patient reported experiencing a few mild depressive episodes which he was able to manage. - No manic or hypomanic episodes reported. - Sleep disturbances noted, with patient waking up around 2:30 AM and sometimes staying awake until 3 or 4 AM. - Anxiety levels described as okay with recent stress due to a friend's health issues. - No significant issues with OCD symptoms reported; patient feels they are well-controlled with current medication regimen. - Patient reported occasional panic attacks, which were managed with leftover medication. - Physical Examination: - Hip discomfort noted; patient has seen an orthopedic doctor and received an injection for inflammation. - MRI scheduled for the right hip due to concerns identified by the orthopedic doctor.
--- OUTSIDE RECORDS SUMMARY | 2024-06-05 10:24 | XMS_ITS ---
Author Organization [facility] Address [address] [place] [address] Care Team Providers Care Nematologist Name Role Phone Jaime Fall MD Primary Care Provider Maninder Al Unavailable [phone] REASON FOR VISIT Requesting call back Medications Medication SIG (Take, Route, Fr equency, Duration) Notes Start Date End Date Status Depakote 250 MG 1 tablet Orally Twic e a day for 30 day(s) 04/17/2024 05/17/2024 Active Social History Sex Assigned At : Social History Observation Description Sex Assigned At Male Problems Problem Type SNOMED Code ICD Code Onset Dates Problem Status W/U Status Risk Notes Problem Severe manic bipolar I disorder without psychotic features (846059) Bipolar disorder with severe sctot (F31.13) Active confirmed Encounters Encounter Location Date Provider Diagnosis [facility] [address] [place] [address] 04/17/2024 Maninder Collins Bipolar disorder with severe scott F31.13 Assessments Encounter Date Diagnosis (ICD Code) Assessment Notes Treatment Notes Treatment Clinical Notes Section Notes 04/17/2024 Bipolar disorder with severe scott (ICD-10 - F31.13) Plan Of Treatment Medication Medication Name Sig Start Date Stop Date Notes Depakote 250 MG 1 tablet Orally Twice a day for 30 day(s) 04/17/2024 05/17/2024 Next Appt Details Provider Name:Maninder aguayo, 06/09/2024 09:00:00 AM, [address], [address], [place], [address], Progress Notes * GUANACO ECHEVARRIADOB: [birth year] (59 yo M)Acc No.[id number]:04/17/2024 Patient: GUANACO FIORE :1965 A ge:59 Y S ex:Male Address:[address] [place] [address], [address] * Refills Start Depakote Tablet Delayed Release, 250 MG, Orally, 60, 1 tablet, Twice a day, 30 day(s) Subjective: * Chief Complaints: * R equesting call back * Medical History: * Surgical History: * Hospitalization/Major Diagno stic Procedure: * Medications: Objective: * Vitals: * Physical Examination: Assessment: * Assessment: 1. B ipolar disorder with severe scott - F31.13 (Primary) Plan: * Treatment: * Procedure Codes: * true * Date: Generated for Albert barrett/Jeanette/Mehreenitting on: 0 06/05/2024 10:24 AM CDT
--- OUTSIDE RECORDS SUMMARY | 2024-06-05 10:24 | XMS_ITS | Data Portability ---
Author Organization [place] [facility] [employer], Main Office Address [address] [place] [address] Care Team Providers Care [employer] Mechanic Name Role Phone JAYNE FALL Primary Care Provider JAYNE FALL Referring Provider [phone] KEIKO KOROMA Shop Teacher ABI FARR Trade Recruiter Assessment Encounter Date Assessment Date Assessment LastModified by Organization Details LastModified Time 03/13/2024 03/13/2024 The patient has trochanteric bursitis of the left hip. We talked about treatment options for this in detail today he wants to proceed with a shot of cortisone and physical therapy. Therefore under sterile conditions I injected the patient's left hip trochanteric bursa in the office with 4 cc 0.5% bupivacaine and 20 mg of Kenalog. Patient tolerated procedure well. We will give it 6 weeks see how he does hopefully this will calm down with time he was also given a prescription for oral prednisone to take in case he needs it he states it does raise his blood sugar a bit when he takes oral prednisone he has taken it before without too much problem. We will see how he does with this round. Talked about icing and stretching daily on his own at home he voiced understanding and agreed with the above plan. The patient had x-rays today of the AP pelvis and left hip views. More views of the right femur were obtained due to abnormal findings in the right proximal femur. Rest of the femur appears to be unremarkable. The AP pelvis view demonstrated normal proximal femur anatomy on the left side. The right side however shows irregularity of the base of the femoral neck at the level of the lesser trochanter with sclerotic subchondral thickening with a bridge of sclerotic bone that travels from medial to lateral forming a possible cystic structure in the midshaft of the proximal femur at the level of the lesser trochanter. Small cystic formation is also noted in the femoral head on the superior lateral portion of the weight-bearing surface. No bony destruction or fracture lesion mass is otherwise seen. Due to the abnormal appearance of the proximal femur shaft I have recommended an MRI scan for further evaluation to rule out anything of concern. The patient states he has no history of carcinoma or metabolic bone disease. States he is otherwise healthy without pain in the right hip. I think the appearance of the proximal femur shaft warrants further investigation. The patient agreed and we will get him set up for the MRI scan I will see him back once the films are ready and see what the radiologist thinks. If the patient has any sudden onset of pain or other issues he will call immediately he voiced understanding and agree with the above plan. [email or web address] Not available 03/13/2024 11:56:09 04/02/2024 04/02/2024 59-year-old male presents for evaluation of his right hip. He has a history of left hip osteoarthritis and is being treated conservatively by Heath CHAMBERS. there was incidental finding on x-ray of a lesion in his right proximal femur, an MRI was ordered and he was sent here for MRI review. He reports no issues with his right hip, has never bothered him. No pain. He got left hip cortisone injection and has been doing PT for that, his hip has been doing fine Nonantalgic gait. No pain with logroll. 5/5 strength in all directions the right hip. Sensation intact to light touch. X-rays were reviewed, demonstrating a benign-appearing lesion in the intertrochanteric area of the right femur. 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 It does not cause him pain or any dysfunction. We will continue to observe, and no intervention necessary unless it starts to bother him or cause any other problems. Follow up as needed with Heath CHAMBERS. [email or web address] Not available 04/02/2024 10:20:24 05/28/2024 05/28/2024 HPI: 59 year old male presents today for a revaluation of right knee pain. He was last evaluated for this concern in Jan [address] Gomez. The treatment plan was conservative management with physical therapy and cortisone injection. Reports the provided relief for a couple of years. Reports generalized pain, no specific location. Reports pain today as 4/10. Pain is aggravated by walking and going from sitting to standing. Associated symptoms included popping, catching, and locking. He has tried Tylenol with good relief. He is unable to have NSAIDs due to kidney disease. Denies any injury to the knee. Medications: Updated in chart Allergies: Penicillin - Hives Medical Hx: Diabetes ( A1C 6.7% this month), Hypertension, Bipolar, Kidney disease Surgical Hx: L1-S1 spinal fusion, left cubital and carpal tunnel release Anesthesia Hx: No issues Tobacco Use: Denies ROS: Per patient questionnaire Physical Exam: General: Normal appearance. No acute distress. BMI 35.9 Inspection: No evidence of swelling, erythema, bruising or deformity. Palpation: Tenderness along the medial joint line ROM: 5-110 Special Test: Pain with terminal flexion. Positive Zaki, Negative Lachmann, No valgus or varus instability. Negative Posterior Draw. Motor: 5/5 strength. Sensation: Sensation intact. Imaging: Xray reviewed. Mild to moderate bilateral osteoarthritis. Medial joint space narrowing bilateral and subchondral sclerosis. No evidence of acute bony injury Reviewed MRI [address] Baker. Demonstrates a discoid meniscus medially with degenerative hyperintense signal possible medial meniscus tear. Assessment & Plan: Discussed treatment options given his failure conservative management of physical therapy and cortisone injection with persistent knee pain, mechanical symptoms and discoid meniscus. We will plan to proceed with surgery for knee arthroscopy. Risks, benefits, and alternatives to surgery were discussed with the patient. Risks include but are not limited to pain, stiffness, infection, bleeding, blood clot, injury to other structures including nerves or blood vessels, need for future surgery, and anesthesia risks. We discussed the goal of surgery is to improve symptoms but there is no guarantee of improvement, and the patient's condition may be worse after surgery. Patient agreed and would like to proceed. Follow Up: 2 weeks post op All questions were answered. Patient verbalized understanding of treatment plan [email or web address] Not available 05/28/2024 11:30:02 Plan of Treatment Reminders Order Date Submit Date Provider Last Modified By Organization Details Last Modified Time Details Appointments Surgery 2024 09:00A Zane Baker MD Not available Not available Not available Post-Op 10 2024 02:20P Zane Preston PA-C Not available Not available Not available Lab PSA, serum or plasma 2024 025 [email or web address] [facility], [address] [place], [address], 03/21/2024 17:28:18 uric acid, serum or plasma 2023 024 [facility], [address] [place], [address], 10/25/2023 15:32:16 HbA1c (hemoglob in A1c), blood 2023 024 [email or web address] [facility], [address] [place] [address], [address], 11/12/2023 17:12:20 lipid panel, serum 2023 024 [facility], [address] [place], [address], 10/25/2023 15:32:09 CMP, serum or plasma 2023 024 [facility], [address] [place] [address], [address], 10/25/2023 15:32:14 Referral physical therapist referral - Please contact patient to schedule 2024 025 [facility] [place], [address] [facility], [place], [address], 03/24/2024 13:09:24 Procedures injection /aspirati on joint/bur sa (PROC) 2024 025 [email or web address] In-Office Order, Internal Use Only DO Not Attach Compendium DO Not Attach Compendium, Do Not Delete/merge, [id number] 03/13/2024 10:58:15 Surgeries None recorded. Imaging XR, knee, 4 or more view 2024 025 [email or web address] [facility] [place], [address], [place], [address], 05/28/2024 11:53:14 XR, femur 2024 025 [email or web address] [facility] [place], [address], [place], [address], 03/13/2024 12:03:33 XR, hip + pelvis, unilatera l 2024 025 [email or web address] [facility] [place], [address], [place], [address], 03/13/2024 11:59:40 MRI, hip, w/o contrast - please focus on proximal femur and compare with x-ray images patient will bring disc. 2024 025 [facility], [address], [place], [address], 03/27/2024 09:20:53 Medication Orders bupivacai ne HCl 0.5 % (5 mg/mL) injection solution 2024 025 [facility] [employer] [id number], [address] [place], [place], [id number], 05/28/2024 11:16:24 Kenalog 10 mg/mL suspensio n for injection 2024 025 [id number] [place], [place], [id number], 05/28/2024 11:16:17 Patient TargetsNo targets recorded. Patient Instructions Encounter Date Encounter Id Patient Instructions Last Modified By Organization Details Last Modified Time 10/24/2023 [id number] Follow-up essent ial hypertension, hyperlipidemia, type 2 diabetes, gout and obesity class two. Last hemoglobin A1c was 6.8. His lipid panel is excellent. Overall is doing well. No interval complaints of any new problems. Will continue on current Rx. Check blood work consisting of a CMP, lipid, uric acid, hemoglobin A1c. Continue on current Rx follow-up in four months Next Appointment: 4 Months Approximate Date: 02/21/2024 Portions of the record may have been created with voice recognition software. Occasional wrong-word or s ound-a-like substitutions may have occurred due to the inherent limitations of voice recognition software. Read the chart carefully and recognize, using context, where substitutions have occurred. Not available 10/24/2023 11:39:49 03/12/2024 [id number] Left hip pain, essential hypertension, hyperlipidemia, type 2 diabetes, obesity class two and chronic kidney disease stage IIIA. All clinically stable. Will set up with Orthopedics and also get a radiographic studies of the left hip.. Will not check any blood with the exception of a PSA. Otherwise appears to be doing well. Follow-up in four months. Additional Orders - Directives - Recommendations 1. X-ray left hip 2. Set up with orthopedics for left hip pain possible greater trochanteric bursitis Follow Up: 4 Months Approximate Date: 07/10/2024 Portions of the record may have been created with voice recognition software. Occasional wrong-word or s ound-a-like substitutions may have occurred due to the inherent limitations of voice recognition software. Read the chart carefully and recognize, using context, where substitutions have occurred. Created: Jayne Fall M.D. 03.12.2024 11:21 AM [email or web address] Not available 03/12/2024 12:21:09 Reason for Referral Physical Therapist Referral for Trochanteric bursitis of left hip Please contact patient to schedule Referring Physician: Heath Jay, Orthopedic Surgery, Encounter Date: 03/13/2024 Results Created Date Observation Date Name Description Value Unit Range Abnormal Flag Note LastModifiedBy Organization Detail LastModifiedTime 10/25/19 24 10/25/2023 HEMOG LOBIN A1C HA1C 6.8 % 4.0-6. 0 high Diabe jonna Scree karthikeyan Crite tala: <5.7% Consi stent with absen ce of diabe jonna 5.7-6 .4% Consi stent with incre ased risk for diabe jonna (pred iabet es) >OR=6 .5% Consi stent with diabe jonna REFER ENCE: Diabe jonna Care 2016, 39(Sarabia ppl.1 ):s13 -s22 Not Available [facility] (Lab) [address] [place], [address], 10/25/2023 12:48:05 10/25/19 24 10/25/2023 LIPID PANEL cholesterol 119 mg/dL 140-19 9 low NIH MANUELITO NSUS RECOM MENDA TION FOR POOJA STERO L: ADULT CHILD LOW RISK: <200 <170 BORDE RLINE : <200- 239 ----- HIGH RISK: >240 >200 Not Available [facility] (Lab) [address] [place], [address], 10/25/2023 15:32:09 10/25/19 24 10/25/2023 LIPID PANEL triglyceride s 263 mg/dL 0-150 high NIH MANUELITO NSUS REPOR T RECOM MENDA TION FOR TRIGL YCERI KELLEY: ADULT CHILD LOW RISK: <150 ----- BODER LINE: 150-1 99 ----- HIGH RISK: >200 ----- Not Available [facility] (Lab) [address] [place], [address], 10/25/2023 15:32:09 10/25/19 24 10/25/2023 LIPID PANEL HDL cholesterol 38 mg/dL 40- low Not Available [facility] (Lab) [address] [place], [address], 10/25/2023 15:32:09 10/25/19 24 10/25/2023 LIPID PANEL LDL cholesterol, calculated 28 mg/dL 0-130 NIH MANUELITO NSUS REPOR T RECOM MENDA TIONS FOR LDL: ADULT CHILD LOW RISK <130 <110 (OPTI MAL LDL) <100 ----- BORDE RLINE : 130-1 59 ----- HIGH RISK: >160 >130 A TRIGL YCERI DE RESUL T >400 INVAL IDATE S THE CALCU LATIO N FOR LDL FRACT IONAT ION - THE LDL RESUL T WILL NOT BE REPOR DEANNA. Not Available [facility] (Lab) [address] [place], [address], 10/25/2023 15:32:09 10/25/19 24 10/25/2023 COMPR EHENS SUZANNE METAB OLIC PANEL sodium 136 mmol/ L 137-14 5 low Not Available [facility] (Lab) [address] [place], [address], 10/25/2023 15:32:14 10/25/19 24 10/25/2023 COMPR EHENS SUZANNE METAB OLIC PANEL potassium 4.4 mmol/ L 3.5-5. 1 Not Available [facility] (Lab) [address] [place], [address], 10/25/2023 15:32:14 10/25/19 24 10/25/2023 COMPR EHENS SUZANNE METAB OLIC PANEL chloride 105 mmol/ L 98-107 Not Available [facility] (Lab) [address] [place], [address], 10/25/2023 15:32:14 10/25/19 24 10/25/2023 COMPR EHENS SUZANNE METAB OLIC PANEL carbon dioxide 26 mmol/ L 22-30 Not Available [facility] (Lab) [address] [place], [address], 10/25/2023 15:32:14 10/25/19 24 10/25/2023 COMPR EHENS SUZANNE METAB OLIC PANEL anion gap 9.4 mmol/ L 14-22 low Not Available [facility] (Lab) [address] [place], [address], 10/25/2023 15:32:14 10/25/19 24 10/25/2023 COMPR EHENS SUZANNE METAB OLIC PANEL glucose 128 mg/dL 70-99 high Not Available [facility] (Lab) [address] [place], [address], 10/25/2023 15:32:14 10/25/19 24 10/25/2023 COMPR EHENS SUZANNE METAB OLIC PANEL BUN 16 mg/dL 8-19 Not Available [facility] (Lab) [address] [place], [address], 10/25/2023 15:32:14 10/25/19 24 10/25/2023 COMPR EHENS SUZANNE METAB OLIC PANEL creatinine 1.22 mg/dL 0.66-1 .25 Not Available [facility] (Lab) [address] [place], [address], 10/25/2023 15:32:14 10/25/19 24 10/25/2023 COMPR EHENS SUZANNE METAB OLIC PANEL GFR >60 Refer ence Range : [place] ge GFR Healt hy Adult : >60 mL/mi n/1.7 3 m2 Chron ic Kidne y Disea se: 15-60 mL/mi n/1.7 3 m2 Kidne y Failu re: <15/m L/min /1.73 m2 www.n iddk. nih.g ov The MDRD study equat ion has not been valid ated in child kassie <18 years of age; pregn ant women ; the elder ly >85 years of age; or in some racia l or ethni c subgr oups, such as ky nics. Outsi de the valid ated anette eters , estim ated GFR is less accur ate, requi ring clini gertrude judgm ent on a case- by-ca se basis . Clini gertrude inter preta tion for other races and ages must be made by the clini luis a. The MDRD study equat ion has not been valid ated for the evalu ation of serum creat inine relat ed to nutri vandana l statu s or medic ation usage . For perso ns <18 years of age, a pedia tric GFR calcu lator is avail able on the [facility] websi te: https ://bin w.karey zamarripa.o rg/pr ofess ional s/kdo qi/gf r_cal culat or Not Available [facility] (Lab) [address] [facility] [place], [address], 10/25/2023 15:32:14 10/25/19 24 10/25/2023 COMPR EHENS SUZANNE METAB OLIC PANEL alkaline phosphatase 58 U/L 38-126 Not Available [facility] (Lab) [address] [place], [address], 10/25/2023 15:32:14 10/25/19 24 10/25/2023 COMPR EHENS SUZANNE METAB OLIC PANEL alanine aminotransfe rase 32 U/L 0-50 Not Available [facility] (Lab) [address] [place], [address], 10/25/2023 15:32:14 10/25/19 24 10/25/2023 COMPR EHENS SUZANNE METAB OLIC PANEL aspartate aminotransfe rase 28 U/L 15-46 Not Available [facility] (Lab) [address] [place], [address], 10/25/2023 15:32:14 10/25/19 24 10/25/2023 COMPR EHENS SUZANNE METAB OLIC PANEL bilirubin, total 0.80 mg/dL 0.20-1 .30 Not Available [facility] (Lab) [address] [place], [address], 10/25/2023 15:32:14 10/25/19 24 10/25/2023 COMPR EHENS SUZANNE METAB OLIC PANEL calcium 9.5 mg/dL 8.4-10 .2 Not Available [facility] (Lab) [address] [place], [address], 10/25/2023 15:32:14 10/25/19 24 10/25/2023 COMPR EHENS SUZANNE METAB OLIC PANEL total protein 7.5 g/dL 6.3-8. 2 Not Available [facility] (Lab) [address] [place], [address], 10/25/2023 15:32:14 10/25/19 24 10/25/2023 COMPR EHENS SUZANNE METAB OLIC PANEL albumin 4.5 g/dL 3.4-5. 0 Not Available [facility] (Lab) [address] [place], [address], 10/25/2023 15:32:14 10/25/19 24 10/25/2023 COMPR EHENS SUZANNE METAB OLIC PANEL globulin 3.0 g/dL 2.6-4. 2 Not Available [facility] (Lab) [address] [place], [address], 10/25/2023 15:32:14 10/25/19 24 10/25/2023 COMPR EHENS SUZANNE METAB OLIC PANEL A/G ratio 1.5 ratio 1.0-2. 0 Not Available [facility] (Lab) [address] [place], [address], 10/25/2023 15:32:14 10/25/19 24 10/25/2023 URIC ACID SERUM uric acid 5.2 mg/dL 3.5-8. 5 Not Available [facility] (Lab) [address] [place], [address], 10/25/2023 15:32:16 03/13/19 25 XR, hip + pelvi s, unila teral No observ ation record ed. [email or web address] [facility] [place] [address], [place], [address], 03/13/2024 11:59:39 03/13/19 25 XR, femur No observ ation record ed. [email or web address] [facility] [place] [address], [place], [address], 03/13/2024 12:02:23 03/27/19 25 03/27/2024 MRI, hip, w/o contr ast No observ ation record ed. [email or web address] [facility] [address], [place], [address], 03/27/2024 10:21:43 03/27/19 25 03/27/2024 MRI, hip, w/o contr ast No observ ation record ed. [email or web address] [facility] [address], [place], [address], 03/27/2024 09:32:35 05/29/19 XR, knee, 4 or more view No observ ation record ed. [facility] [place] [address], [place], [address], 05/28/2024 11:32:37 Result Notes None recorded. Problems Name Problem SNOMED Code Status Onset Date Resolution Date Notes Provider Name and Address Organization Details Recorded Time Testicular hypofuncti on 828082132 Active Not Available [facility] 3 03:59:10 Benign essential hypertensi on 1039009 Active Not Available [facility] 3 03:59:10 Shoulder joint pain 042800861 Active Not Available [facility] 3 03:59:10 Tear of medial meniscus of knee 953913190 Active 2021 Not Available [facility] 3 03:59:10 Tear of medial meniscus of knee 507565807 Active 2021 Not Available [facility] 3 03:59:10 Depressive disorder 67728934 Active Not Available [facility] 3 03:59:10 Chronic kidney disease stage 2 682004402 Active 2021 Not Available [facility] 3 03:59:10 Type 2 diabetes mellitus 58130946 Active Not Available [facility] 3 03:59:10 Pain of right knee joint 7864735987870 00 Active 2021 Not Available [facility] 3 03:59:10 Hyperlipid emia 69883639 Active Not Available [facility] 3 03:59:10 Gout 75512945 Active 2017 Not Available [facility] 3 03:59:10 Hearing loss 74889966 Active 2022 Not Available [facility] 3 03:59:10 Obese class II 2846631531743 05 Active 2023 Jayne Fall MD [address], [place], [address] , [facility] 4 10:41:40 Type 2 diabetes mellitus without complicati on 108731588 Active 2023 Miryam Messina null, [place] [facility] 4 10:51:11 Cobalamin deficiency 785505938 Active 2023 YOANA Ruby null, [place] [facility] 4 15:21:38 Numbness of hand 221650863 Active 2023 Jayne Fall MD [address], [place], [address] , [facility] 4 11:10:00 Paresthesi a of hand 962232441 Active 2023 Miryam Messina null, [place] [facility] 4 16:58:10 Anemia 392856336 Active 2023 Cherrie Anaya null, [place] [facility] 4 16:50:58 Carpal tunnel syndrome 85016093 Active 2023 Wilma Alvarado CMA null, [place] [facility] 4 15:49:23 Low back pain 502252842 Active 2023 Wilma Alvarado CMA null, [place] [facility] 4 17:36:55 Pain in right hip joint 1443216232890 02 Active 2024 Jayne Fall MD [address], [place], [address] , [facility] 5 12:13:57 Pain of left hip joint 1651687725879 00 Active 2024 Jayne Fall MD [address], [place], [address] , [facility] 5 12:18:08 Disorder of prostate 54525720 Active 2024 Jayne Fall MD [address], [place], [address] , [facility] 5 12:20:29 Pain in femur 545816736 Active 2024 Diptistan Liangs null, [facility] 5 10:55:40 Pain in femur 046822139 Active 2024 Dipti Jeni null, [place] [facility] 5 10:56:00 Trochanter ic bursitis of left hip 1590972876053 03 Active 2024 Dipti Jeni null, [facility] 5 10:56:30 Hip pain 02353318 Active 2024 YOANA Colon null, [facility] 5 09:41:48 Notes:Some problems listed i n Document: #[id number] could not be added to this patient's chart. Please review this document and add these problems to the patient's chart manually as needed. Problem Notes None recorded. Procedures Surgical History Date Name Laterality Status Provider Name and Address Organization Details Recorded Time 4 Chronic care management services completed Liseth Hameed [facility] 12/04/2023 10:21:06 4 Carpal tunnel completed Karlie Blanco CNA [facility] 03/13/2024 10:34:00 4 procedure on elbow completed Karlie Blanco CNA [facility] 03/13/2024 10:34:23 4 Chronic care management services completed Keiko Koroma RN [facility] [employer] [facility] 08/28/2023 15:08:29 4 Chronic care management services completed Keiko Koroma RN [facility] [employer] 08/01/2023 15:13:20 Medicare Wellness CPT Code, subsequent completed Melinda Morales RN [facility] [employer] [facility] 07/10/2023 10:55:41 Imaging Results Imaging Date Name Status LastModified by Organiz ation Details LastModified Time 03/13/2024 XR, hip + pelvis, unilateral completed [email or web address] [facility] [place] [address] [facility] [address], [place], [address], 03/13/2024 11:59:39 03/13/2024 XR, femur completed [email or web address] [facility] [place] [address] [facility] [address], [place], [address], 03/13/2024 12:02:23 03/27/2024 MRI, hip, w/o contrast completed [email or web address] [facility] [address], [place], [address], 03/27/2024 10:21:43 03/27/2024 MRI, hip, w/o contrast completed [email or web address] [place] [address] Imaging [address], [place], [address], 03/27/2024 09:32:35 05/28/2024 XR, knee, 4 or more view completed [email or web address] [facility] [place] [address] [facility] [address], [place], [address], 05/28/2024 11:32:37 Procedure Notes None recorded. Medical Equipment None Reported. Allergies Allergen ID Allergen Name Allergen Category Reaction Reaction Severity Criticality Documentation Date Start Date Code Code System Note Provider Name and Address Organization Details Recorded Time 83957 Product containin g penicilli n (product) medicatio n hives moderate high 05/03/2022 [id number] SNOMED aller gic to all cilli ns Keiko Koroma RN null, [facility] 4 15:00:15 [id number] amoxicill in medicatio n rash moderate high 05/03/2022 723 RxNorm Keiko Koroma RN null, [facility] 4 14:59:55 Medications Name Sig Start Date Stop Date Status Note LastModified by Organization Details LastModified Time quetiapine 25 mg tablet TAKE 2 TABLETS BY MOUTH EVERY MORNING AND 1 TABLET BY MOUTH EVERY NIGHT AT BEDTIME active Not Available Not Available No t Available cyclobenzap rine 10 mg tablet Take 1 tablet three times daily active Not Available Not Available No t Available prednisone 10 mg tablet 02/22 completed Not Available Not Available Not Available cefuroxime axetil 250 mg tablet TAKE 1 TABLET BY MOUTH TWICE DAILY 07/21 completed Not Available Not Available Not Available atorvastati n 20 mg tablet TAKE 1 TABLET BY MOUTH DAILY active Not Available Not Available No t Available clindamycin HCl 300 mg capsule Take 1 capsule every 6 hours by oral route for 7 days. active Not Available Not Available No t Available divalproex 250 mg tablet,ashely yed release TAKE 1 TABLET BY MOUTH TWICE DAILY 05/28 completed Not Available Not Available Not Available alprazolam 1 mg tablet TAKE 1 TABLET BY MOUTH THREE TIMES DAILY NEEDED 02/21 completed Not Available Not Available Not Available Risperdal 2 mg tablet Take 1 tablet every day by oral route. 11/17 completed Not Available Not Available Not Available benzonatate 200 mg capsule Take 1 capsule 3 times a day by oral route. active Not Available Not Available No t Available Lotrisone 1 %-0.05 % topical cream Apply by topical route twice daily 01/24 completed Not Available Not Available Not Available hydrocodone 5 mg-acetamin ophen 325 mg tablet TAKE 1 TABLETS BY MOUTH EVERY 6 HOURS NEEDED FOR knee pain 2024 active Not Available Not Available Not Avai lable bupivacaine HCl 0.5 % (5 mg/mL) injection solution Take 20 mg by injection route. 05/28 completed Not Available Not Available Not Available Zithromax Z-Westley 250 mg tablet TAKE 2 TABLETS (500 MG) BY ORAL ROUTE ONCE DAILY FOR 1 DAY THEN 1 TABLET (250 MG) BY ORAL ROUTE ONCE DAILY FOR 4 DAYS 06/14 completed Not Available Not Available Not Available amlodipine 2.5 mg tablet Take 1 tablet every day by oral route. 02/07 completed Not Available Not Available Not Available chlorthalid one 25 mg tablet TAKE 1 TABLET BY MOUTH EVERY DAY 10/18 completed Not Available Not Available Not Available amlodipine 5 mg tablet Take 1 tablet every day by oral route. 08/15 completed Not Available Not Available Not Available allopurinol 100 mg tablet TAKE 1 TABLET BY MOUTH EVERY DAY active Not Available Not Available No t Available sulfamethox azole 800 mg-trimetho prim 160 mg tablet TAKE 1 TABLET BY MOUTH TWICE DAILY FOR 10 DAYS 07/21 completed Not Available Not Available Not Available tramadol 50 mg tablet TAKE 1 TABLET BY MOUTH EVERY 6 HOURS NEEDED FOR PAIN 03/13 completed Not Available Not Available Not Available risperidone 3 mg tablet TAKE 1 TABLET BY MOUTH EVERY DAY IN THE EVENING. STOP MORNING DOSE OF RISPERIDO NE 11/17 completed Not Available Not Available Not Available prednisone 10 mg tablets in a dose pack Take 1 tab by mouth, 3 times a day for 3 daysTake 1 tab by mouth 2 times a day for 2 daysTake 1 tab by mouth once a day for 1 day 01/19 completed Not Available Not Available Not Available alprazolam 0.5 mg tablet TAKE 1 AND 1/2 TABLETS BY MOUTH EVERY DAY AT 3 PM FOR 2 WEEKS THEN TAKE 1 AND 1/2 TABLETS BY MOUTH EVERY MORNING AND EVERY NIGHT AT BEDTIME 06/26 completed Not Available Not Available Not Available propranolol 10 mg tablet TAKE 1 TABLET BY MOUTH TWICE DAILY 01/19 completed Not Available Not Available Not Available propranolol 40 mg tablet TAKE 1 TABLET BY MOUTH TWICE DAILY active Not Available Not Available No t Available alprazolam 0.25 mg tablet TAKE 1 TABLET BY MOUTH EVERY DAY NEEDED 06/26 completed Not Available Not Available Not Available methocarbam ol 750 mg tablet 10/18 completed Not Available Not Available Not Available Kenalog 10 mg/mL suspension for injection Take 20 mg by injection route. 05/28 completed [facility]: [phone] Not Available Not Available Not Available baclofen 10 mg tablet Take 1 tablet 4 times a day by oral route. 01/29 completed Not Available Not Available Not Available amlodipine 10 mg tablet TAKE 1 TABLET BY MOUTH DAILY active Not Available Not Available No t Available Risperdal 4 mg tablet take 4.5 tablets daily 11/17 completed Not Available Not Available Not Available cyanocobala min (vit B-12) 1,000 mcg/mL injection solution Inject 1 mL every month by subcutane ous route. 2024 active Not Available Not Available Not Avai lable buspirone 30 mg tablet TAKE 1 TABLET BY MOUTH TWICE DAILY active Not Available Not Available No t Available metformin 1,000 mg tablet TAKE 1 TABLET BY MOUTH TWICE DAILY active Not Available Not Available No t Available buspirone 10 mg tablet Take 1.5 tablets twice a day by oral route. 07/21 completed Not Available Not Available Not Available gabapentin 300 mg capsule 07/21 completed Not Available Not Available Not Available Levaquin 500 mg tablet Take 1 tablet every 24 hours by oral route. active Not Available Not Available No t Available ergocalcife rol (vitamin D2) 1,250 mcg (50,000 unit) capsule TAKE 1 CAPSULE BY MOUTH 1 TIME A WEEK active Not Available Not Available No t Available testosteron e cypionate 200 mg/mL intramuscul ar oil ADMINISTE R 1 ML IN THE MUSCLE EVERY 2 WEEKS 2024 active Not Available Not Available Not Avai lable oxycodone-a cetaminophe n 7.5 mg-325 mg tablet TK 1 T PO TID FOR 14 DAYS PRN 07/21 completed Not Available Not Available Not Available R[place]bury 7.5 mg-325 mg tablet one every six hours as needed for lumbar pain 2019 active Not Available Not Available Not Avai lable methylpredn isolone 4 mg tablets in a dose pack FOLLOW PACKAGE DIRECTION S 06/26 completed Not Available Not Available Not Available Zoloft 100 mg tablet Take 1 tablet every day by oral route. 07/24 completed Not Available Not Available Not Available propranolol 20 mg tablet TAKE 1 TABLET BY MOUTH TWICE DAILY NEEDED 06/26 completed Not Available Not Available Not Available lisinopril 40 mg tablet TAKE 1 TABLET BY MOUTH DAILY active Not Available Not Available No t Available risperidone 1 mg tablet TAKE 1 TABLET BY MOUTH EVERY DAY AT BEDTIME 01/12 completed Not Available Not Available Not Available calcitriol 0.25 mcg capsule TAKE 1 CAPSULE BY MOUTH DAILY active Not Available Not Available No t Available risperidone 0.5 mg tablet TAKE 1 TABLET BY MOUTH EVERY DAY 01/12 completed Not Available Not Available Not Available doxazosin 2 mg tablet TAKE 1 TABLET BY MOUTH DAILY active Not Available Not Available No t Available Blood Glucose Monitoring kit use to test daily active Not Available Not Available No t Available bupropion HCl XL 300 mg 24 hr tablet, extended release TAKE 1 TABLET BY MOUTH EVERY DAY IN THE MORNING 01/12 completed Not Available Not Available Not Available bupropion HCl XL 150 mg 24 hr tablet, extended release TAKE 1 TABLET BY MOUTH EVERY DAY IN THE MORNING 01/12 completed Not Available Not Available Not Available Depakote 750 mg one tablet daily 2015 active Not Available Not Available Not Avai lable fenofibrate nanocrystal lized 145 mg tablet TAKE 1 TABLET DAILY FOR TRIGLYCER IDES 07/19 completed Not Available Not Available Not Available Viibryd 40 mg tablet Take 1 tablet every day by oral route. 07/25 completed Not Available Not Available Not Available ropivacaine (PF) 5 mg/mL (0.5 %) injection solution Take 20 mg by injection route. 10/18 completed Not Available Not Available Not Available Contour Next Test Strips test once daily 03/13 completed Not Available Not Available Not Available Stimulant Laxative Plus 8.6 mg-50 mg tablet TAKE 1 TABLET BY MOUTH EVERY DAY 07/31 completed Not Available Not Available Not Available Farxiga 5 mg tablet TAKE 1 TABLET BY MOUTH EVERY DAY active Not Available Not Available No t Available Vraylar 6 mg capsule TAKE 1 CAPSULE BY MOUTH DAILY active Not Available Not Available No t Available Vraylar 1.5 mg capsule TAKE 1 CAPSULE BY MOUTH EVERY DAY 01/12 completed Not Available Not Available Not Available Vraylar 4.5 mg capsule TAKE 1 CAPSULE BY MOUTH EVERY DAY 01/12 completed Not Available Not Available Not Available Vraylar 3 mg capsule TAKE 1 CAPSULE BY MOUTH EVERY DAY 01/12 completed Not Available Not Available Not Available Trintellix 20 mg tablet TAKE 1 TABLET BY MOUTH DAILY active Not Available Not Available No t Available Accu-Chek Guide test strips USE ONCE DAILY active Not Available Not Available No t Available Accu-Chek Guide Glucose Meter USE DIRECTED TO TEST BLOOD SUGAR LEVELS active Not Available Not Available No t Available Accu-Chek Fastclix Lancet Drum USE ONCE DAILY active Not Available Not Available No t Available Vitals Date Recorded Body height Body mass index (BMI) Body weight Heart rate Body temperature Oxygen saturation Oxygen saturation in Arterial blood by Pulse oximetry Systolic blood pressure Diastolic blood pressure Provider Name and Address Organization Details Last Updated DateTime 4 177.8 cm 35.2 kg/m2 374017. 13 g 77 /min 97.7 [degF] 99 % 99 % 130 mm[Hg] 82 mm[Hg] Krysta Parks [place] [facility] 4 11:16:26 Date Recorded Body height Body mass index (BMI) Body weight Body temperature Heart rate Oxygen saturation Oxygen saturation in Arterial blood by Pulse oximetry Systolic blood pressure Diastolic blood pressure Provider Name and Address Organization Details Last Updated DateTime 5 177.8 cm 36.2 kg/m2 346124. 28 g 98.1 [degF] 71 /min 97 % 97 % 122 mm[Hg] 74 mm[Hg] Ese Villa [place] [facility] 5 12:09:30 Date Recorded Body height Body mass index (BMI) Body weight Provider Name and Address Organization Details Last Updated DateTime 03/13/2024 177.8 cm 35.9 kg/m2 564162.09 g Karlie Blanco CNA [facility] 03/13/2024 10:31:25 Date Recorded Body height Body mass index (BMI) Body weight Pain severity - 0-10 verbal numeric rating [Score] - Reported Provider Name and Address Organization Details Last Updated DateTime 04/02/2024 177.8 cm 35.9 kg/m2 728581.09 g YOANA Key [facility] 04/02/2024 09:41:08 Date Recorded Body height Body mass index (BMI) Body weight Pain severity - 0-10 verbal numeric rating [Score] - Reported Provider Name and Address Organization Details Last Updated DateTime 05/28/2024 177.8 cm 35.9 kg/m2 047952.09 g 4 YOANA Colon [place] [facility] [employer] 05/28/2024 10:23:10 Social History Question Answer Notes LastModified by Organization Details LastModified Time Tobacco Smoking Status Never Smoker Not Available [facility] 05/03/2022 05:54:07 Do You Have An Advance Directive? No [email or web address] [id number] Information not available 05/03/2022 What Is Your Level Of Alcohol Consumption? None [email or web address].[email or web address] [id number] Information not available 05/03/2022 What Is Your Level Of Caffeine Consumption? Moderate 1 Mountain Dew Daily Information not available 08/01/2023 In The 14 Days Before Symptom Onset, Have You Had Close Contact With A Laboratory-conf irmed COVID-19 While That Case Was Ill? No [email or web address] [id number] Information not available 05/03/2022 In The 14 Days Before Symptom Onset, Have You Had Close Contact With A Person Who Is Under Investigation For COVID-19 While That Person Was Ill? No [email or web address].030 [id number] Information not available 05/03/2022 Are You Currently Employed? No Pt On Disability Information not available 08/01/2023 What Type Of Diet Are You Following? DIABETIC Information not available 08/01/2023 What Is The Highest Grade Or Level Of School You Have Completed Or The Highest Degree You Have Received? [id number] Information not available 08/01/2023 How Many Days Of Moderate To Strenuous Exercise, Like A Brisk Walk, Did You Do In The Last 7 Days? 3 Information not available 08/01/2023 On Those Days That You Engage In Moderate To Strenuous Exercise, How Many Minutes, On Average, Do You Exercise? 40 Information not available 08/01/2023 Have There Been Any Changes To Your Family Or Social Situation? No MIGRATION.030 [id number] Information not available 05/03/2022 What Is The Fluoride Status Of Your Home? Unknown [email or web address].030 [id number] Information not available 05/03/2022 Are There Any Guns Present In Your Home? No MIGRATION.030 [id number] Information not available 05/03/2022 Where Do You Live? [place]House MIGRATION.030 [id number] Information not available 05/03/2022 Presence Of Domestic Violence No Information not available 08/01/2023 Guns Present In The Home? No [email or web address] Information not available 07/10/2023 Are You Able To Care For Yourself? Yes [email or web address] Information not available 07/10/2023 Are You Blind Or Do Yo Have Difficulty Seeing? No [email or web address] Information not available 07/10/2023 Are You Deaf Or Do You Have Serious Difficulty Hearing? Yes Has Hearing Aids [email or web address] Information not available 07/10/2023 General Stress Level? High Information not available 08/01/2023 Live Alone Of With Others? With Others [email or web address] Information not available 07/10/2023 Do You Have A Medical Power Of Residential Sales Consultant? No [id number] Information not available 05/03/2022 What Was The Date Of Your Most Recent Tobacco Screening? 07/10/2023 [email or web address] Information not available 07/10/2023 How Many Children Do You Have? 4 Information not available 08/01/2023 Do You Have Any Pets? Yes [email or web address].[id number] [id number] Information not available 05/03/2022 What Is Your Relationship Status? MIGRATION.0301 [id number] Information not available 05/03/2022 Do You Use Your Seat Belt Or Car Seat Routinely? Yes [email or web address] Information not available 07/10/2023 Are You Sexually Active? Yes Information not available 08/01/2023 Do You Have Smoke And Carbon Monoxide Detectors In Your Home? Yes [email or web address].0301 [id number] Information not available 05/03/2022 Are You Passively Exposed To Smoke? No MIGRATION.0301 [id number] Information not available 05/03/2022 Are There Any Smokers In Your House? No MIGRATION.0301 [id number] Information not available 05/03/2022 What Types Of Sporting Activities Do You Participate In? None Information not available 08/01/2023 Do You Feel Stressed (tense, Restless, Nervous, Or Anxious, Or Unable To Sleep At Night)? [id number] Information not available 08/01/2023 Have You Recently Traveled Abroad? No MIGRATION.0301 [id number] Information not available 05/03/2022 Do You Have Any Dietary Restrictions? No MIGRATION.0301 [id number] Information not available 05/03/2022 Sex: Male Functional Status Question Answer Note LastModified by Organization D etails LastModified Time What is your exercise level? Moderate Information not available 08/01/2023 Mental Status None recorded. Family History Relationship Description Onset Age of this Age Resolved Age Notes LastModified by Organization Details LastModified Time Father Family history of malignant neoplasm [id number] Not available 05/03/2022 05:54:21 Father Hypertensive disorder [id number].832 [id number] Not available 05/03/2022 05:54:21 Mother Family history of stroke MIGRATION.276 [id number] Not available 05/03/2022 05:54:21 Brother Diabetes mellitus MIGRATION.917 [id number] Not available 05/03/2022 05:54:21 Brother Kidney disease MIGRATION.701 [id number] Not available 05/03/2022 05:54:21 Father Diabetes mellitus [email or web address] Not available 2024 10:33:03 Notes:Mother 88 Cho lesterol and Prediabetes Father 56 from essential hypertension and Type II Diabetes Two sisters both living one with essential hypertension and DM One brother with essential hypertension and Type II Diabetes Medical History Condition Response NERVE DISEASE N BLINDNESS N RHEUMATIC FEVER N KIDNEY STONES N BLADDER PROBLEMS N MRSA N OTHER # 1 N POLIO N LUNG DISEASE/DISORDER N RADIATION / CHEMOTHERAPY N COPD N Other # 2 N BLOOD DISEASES N EAR OR HEARING PROBLEMS N MUMPS N BOWEL PROBLEMS N DEPRESSION (INCLUDING POST ) Y STROKE/TIA N ULCERS N BENIGN PROSTATIC HYPERPLASIA N MEASLES N MYOCARDIAL INFARCTION N OBESITY N GERD/NAUSEA N ANEURYSM N URINARY/BLADDER/KIDNEY PROBLEMS N CORONARY ARTERY DISEASE (CAD) N ADDICTION CONCERNS N ENDOMETRIOSIS N Impotence N USE OF BLOOD THINNERS N SKIN PROBLEMS N GASTROINTESTINAL DISORDER N PERIPHERAL VASCULAR DISEASE N MUSCLE,JOINT OR BONE PROBLEMS N GASTROINTESTINAL BLEEDING N BLOOD CLOTS N ASTHMA N CATARACTS N ERECTILE DYSFUNCTION N VARICOSITIES N GI PROBLEMS N Low Testosterone Y INFERTILITY N AIDS/HIV N CHEMOTHERAPY / RADIATION N LIVER DISEASE N MALE HYPOGONADISM N HYPERTENSION Y Deficiency N TOURETTE'S N ANXIETY DISORDER Y BLOOD TRANSFUSION N ANEMIA/BLOOD DISORDER Y CHRONIC EAR INFECTIONS N BRONCHITIS N TUBERCULOSIS N GLAUCOMA N FOOT PROBLEM N DIVERTICULITIS N SLEEP APNEA N CHICKENPOX N INFECTIOUS DISEASE N HEART ARRHYTHMIA N PROSTATE N INSOMNIA N HIGH CHOLESTEROL / HYPERLIPIDEMIA Y HYPERTHYROIDISM N EYE PROBLEMS N EDEMA N CHRONIC PAIN SYNDROME N HYPOTHYROIDISM N CAROTID BLOCKAGE N CONSTIPATION N BACK / NECK PROBLEMS N HAVE YOU BEEN HOSPITALIZED OR SEEN IN [facility] IN THE PAST YEAR ? Y ATHEROSCLEROSIS N BREAST PROBLEMS N DIALYSIS N ECZEMA N OSTEOPOROSIS N ARTHRITIS N NO SIGNIFICANT PAST MEDICAL HISTORY N APPENDICITIS N DIABETES, TYPE Y BAD TEETH N ENT N HEARTBURN / REFLUX N AUTISM SPECTRUM DISORDER (ASD) N HEPATITIS / LIVER DISEASE N GOUT Y SLEEP DISORDER N ALZHEIMER'S DISEASE N Brain Problems N HERPES N DEMENTIA N HEADACHES/MIGRAINES N SEIZURES/EPILEPSY N VASCULAR DISEASE N PACEMAKER N Blood Disorder N DIZZINESS N HEART DISEASE/HEART PROBLEMS N KIDNEY DISEASE Y MULTIPLE SCLEROSIS N CARDIAC ARRHYTHMIA N CANCER: SPECIFY N ATRIAL FIBRILLATION N Gall Stones N PULMONARY EMBOLISM N AUTOIMMUNE DISEASE N Immunizations Vaccine Type Date Status Note Provider Nam e and Address Organization Details Recorded Time SARS-COV-2 (COVID-19) vaccine, UNSPECIFIED 1 completed Not Available [facility] 03/01/2023 03:59:12 SARS-COV-2 (COVID-19) vaccine, UNSPECIFIED 1 completed Not Available [facility] 03/01/2023 03:59:12 influenza, unspecified formulation 7 completed Not Available [facility] 03/01/2023 03:59:12 Influenza, split virus, trivalent, preservative 3 completed Not Available [facility] 03/01/2023 03:59:12 Influenza, split virus, quadrivalent, PF 1 completed Not Available [facility] 03/01/2023 03:59:12 Influenza, split virus, quadrivalent, PF 2 completed Not Available [facility] 03/01/2023 03:59:12 Influenza, high-dose, trivalent, PF 4 completed Not Available [facility] 03/01/2023 03:59:12 Past Encounters Encounter ID Performer Location Encounter Start Date Encounter Closed Date Diagnosis/Indication Diagnosis SNOMED-CT Code Diagnosis ICD10 Code Diagnosis Note [id number] [facility] 24 [address] [facility] 24 [place] [address] 07/21/2020 00:00:00 07/21/2020 11:47:30 [id number] [facility] [address] [address] 11/17/2020 00:00:00 11/17/2020 12:04:57 [id number] [facility] [address] [facility] [address] 04/25/2021 00:00:00 04/25/2021 16:51:43 [id number] [facility] [address] [address] 08/22/2021 00:00:00 08/22/2021 17:18:54 [id number] [facility] [address] [place] [address] 01/12/2022 00:00:00 01/12/2022 11:29:57 [id number] [facility] [address] [place] [address] 01/23/2022 00:00:00 01/23/2022 10:41:52 [id number] [facility] [address] [address] 02/22/2022 00:00:00 02/22/2022 11:23:33 [id number] [facility] [address] [place] [address] 03/02/2022 00:00:00 03/02/2022 09:13:10 [id number] Jayne Fall MD [facility] [address] [address] 06/21/2022 10:40:48 06/21/2022 11:07:06 Benign essential hypertension 1225499 I10 Hyperlipidemia 31830171 E78.5 Type 2 gabbie betes mellitus 64786290 E11.9 Gout 56197298 M10.9 [id number] Jayne Fall MD [facility] Internal [facility] [address] [address] 10/18/2022 10:37:28 10/18/2022 11:39:09 Benign essential hypertension 0345303 I10 Type 2 gabbie betes mellitus 63304845 E11.9 Hyperlipidemia 01558177 E78.5 Depressive disorder 3548 9007 F32.9 Chronic ki dney disease stage 2 986568366 N18.2 [id number] Jayne Fall MD [facility] [address] [address] 02/21/2023 10:26:33 02/21/2023 11:00:43 Benign essential hypertension 7038694 I10 Chronic ki dney disease stage 2 518345025 N18.2 Type 2 gabbie betes mellitus 24799732 E11.9 Hyperlipidemia 55887790 E78.5 Obese class I [id number] 64474 E66.9 [id number] Jayne Fall MD [facility] Internal Med [facility] [address] [address] 06/27/2023 10:29:55 06/27/2023 10:53:46 Benign essential hypertension 8478390 I10 Chronic ki dney disease stage 2 387133381 N18.2 Type 2 gabbie betes mellitus 75118893 E11.9 Hyperlipidemia 55464380 E78.5 Obese class II 274403038 1 82290 E66.9 [id number] Jayne Fall MD [facility] Internal [facility] [address] [place] [address] , [place] [address] 07/10/2023 10:46:50 07/10/2023 11:18:33 Adult health examination 327071188 Z00.00 Screening for disorder 514090964 Z13.9 Numbness of hand 5134083 04 R20.0 [id number] Jayne Fall MD [facility] [address] [address] 07/27/2023 18:27:35 08/30/2023 11:12:43 Anemia 813951445 D51.9 Pt reports stable w/ no issues Depressive disorder 2751 7897 F32.9 Pt states feeling good and has no issues at this time Chronic ki dney disease stage 2 664344547 N18.2 doing well, taking meds Benign ess ential hypertension 6164059 I10 BP baseline, taking meds, doing well, Takes every couple days or so [id number] Jayne Fall MD [facility] Internal Med [facility] [address] [address] 08/28/2023 14:50:36 08/30/2023 11:57:14 Benign essential hypertension 7847299 I10 Anemia 900702084 D51.9 Chronic ki dney disease stage 2 130582937 N18.2 Depressive disorder 3548 9007 F32.9 [id number] Liseth Hameed [facility] Internal Med [facility] [address] [address] 10/02/2023 15:29:27 12/10/2023 09:45:45 Anemia 111439795 D51.9 Benign ess ential hypertension 2493264 I10 Chronic ki dney disease stage 2 911268313 N18.2 Depressive disorder 3548 9007 F32.9 [id number] Jayne Fall MD [facility] Internal Med [facility] [address] [address] 10/24/2023 11:05:39 10/24/2023 11:42:37 Benign essential hypertension 2570433 I10 Hyperlipidemia 42248454 E78.5 Type 2 gabbie betes mellitus 59775975 E11.9 Gout 19071001 M10.9 Obese class II 556492386 1 76086 E66.9 [id number] Jayne Fall MD [facility] Internal Med [facility] [address] [address] 03/12/2024 11:52:44 03/12/2024 12:22:51 Benign essential hypertension 7732309 I10 Hyperlipidemia 55242696 E78.5 Type 2 gabbie betes mellitus 97492310 E11.9 Obese class II 987461309 1 29305 E66.9 Pain of le ft hip joint 1081349502 77617 M25.552 Disorder of prostate 302 54157 N42.9 [id number] REYES Viveros [facility] [place] [address] [address] [place] [address] 03/13/2024 10:11:51 03/13/2024 11:34:57 Pain of left hip joint [id number] M25.552 Pain in femur [id number] M79.659 Trochanter ic bursitis of left hip [id number] 62372 M70.62 Pain in ri ght hip joint [id number] 55737 M25.374 [id number] Holger Baker MD [facility] [address] [place] [address] 04/02/2024 09:38:29 04/02/2024 09:50:38 Hip pain [id number] M25.804 [id number] Maki Preston PA-C [facility] 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 Tear of me dial meniscus of knee [id number] S83.241D Goals Section Goal Description Progress Status Start Date LastModified by Organization Details LastModified Time Blood Pressure Maintains blood pressure goal as defined by care team [facility] active 2023 Keiko Koroma RN Information not available 10/02/2023 19:44:13 Medication Regimen Follows medication regimen as per care team recommendation (s) [facility] active 2023 Keiko Koroma RN Information not available 10/02/2023 19:42:33 Family and Social Support Reports family and/or social support needs are met NoCdominique active 2023 Keiko Koroma RN Information not available 10/02/2023 19:43:17 Recreation al Activities Participates in recreational activities that he enjoys to help reduce anxiety and depression NoCdominique active 2023 Keiko Koroma RN Information not available 10/02/2023 19:45:49 Lab Testing Completes lab testing as per care team recommendation (s) [facility] active 2023 Keiko Koroma RN Information not available 08/01/2023 18:45:50 Lab Values Patient lab values are at baseline NoCdianne active 2023 Keiko Koroma RN Information not available 08/01/2023 18:45:50 Chronic Disease Symptom Management Reports no new or worsening [facility] Keiko Koroma RN Information not available 08/01/2023 18:45:50 Medication Regimen Follows medication regimen as per care team recommendation (s) [facility] active 2023 Keiko Koroma RN Information not available 08/01/2023 18:45:50 Heart Healthy Diet Maintain a low sodium and low fat diet, restricting artificial sweetener use [facility] active 2023 Keiko Koroma RN Information not available 08/01/2023 18:45:31 Exercise Regularly Follows a regular exercise regimen or instructed exercise plan as per care team recommendation (s) [facility] active 2023 Keiko Koroma RN Information not available 08/01/2023 18:46:11 Mental Health Patient maintains baseline mental status [facility] 20[facility] Keiko Koroma RN Information not available 08/01/2023 18:48:35 Adequate Sleep Achieves adequate, well-rested sleep with minimal disruption [facility] 2023 Keiko Koroma RN Information not available 08/28/2023 18:47:56 Exercise Regularly Follows a regular exercise regimen or instructed exercise plan as per care team recommendation (s) [place] active 2023 Keiko Koroma RN Information not available 08/28/2023 18:47:57 Quality of Life Reports satisfaction with quality of life [facility] 2023 Keiko Koroma RN Information not available 08/28/2023 18:47:57 Activities of Daily Living Performs activities of daily living independently or with minimal assistance [facility] 2023 Keiko Koroma RN Information not available 08/28/2023 18:47:57 Follow-up Appointmen t(s) Attends referral and/or follow-up appointment(s) as per care team recommendation (s) [facility] active 2023 Kieko Koroma RN Information not available 08/28/2023 18:47:57 Adequate Housing Conditions Maintains adequate housing with satisfactory living conditions [facility] 2023 Keiko Koroma RN Information not available 08/28/2023 18:47:57 Food Security Reports ability to access and obtain foods to meet nutritional needs [facility] 2023 Keiko Koroma RN Information not available 08/28/2023 18:47:57 Vaccinatio n Status Remains up to date on vaccines as per care team recommendation (s) [facility] active 2023 Keiko Koroma RN Information not available 08/28/2023 18:47:57 Family and Social Support Reports family and/or social support needs are met [facility] 2023 Keiko Koroma RN Information not available 08/28/2023 18:47:57 Home/Envir onment Safety Reports having a safe environment that promotes independence and prevents injury [facility] 2023 Keiko Koroma RN Information not available 08/28/2023 18:47:57 Diet Adherence Follows prescribed or recommended diet [facility] active 2023 Keiko Koroma RN Information not available 08/28/2023 18:47:57 Knowledge of Disease or Condition Demonstrates understanding of disease(s) or condition(s) [facility] 2023 Keiko Koroma RN Information not available 08/28/2023 18:47:58 Fall Safety Reports no recent falls and/or fall injuries [facility] 2023 Keiko Koroma RN Information not available 08/28/2023 18:47:58 Effective Pain Management Reports or exhibits adequate pain relief as determined by appropriate pain scale [facility] 2023 Keiko Koroma RN Information not available 08/28/2023 18:47:58 Financial Stability Reports financial status and/or income meets needs [facility] 2023 Keiko Koroma RN Information not available 08/28/2023 18:47:58 Activity Tolerance Reports and/or exhibits normal or improved activity tolerance [facility] 2023 Keiko Koroma RN Information not available 08/28/2023 18:47:58 Symptom Management Demonstrates ability to manage and/or control symptoms [facility] 2023 Keiko Koroma RN Information not available 08/28/2023 18:47:58 Pain Management Plan Reports satisfaction with current pain management plan (e.g., medication and non-medication pain relief interventions) [facility] 2023 Keiko Koroma RN Information not available 08/28/2023 18:47:59 Lab Testing Completes lab testing as per care team recommendation (s) [facility]23 Keiko Koroma RN Information not available 08/28/2023 18:47:59 Smoking Cessation Quits smoking [facility] 2023 Keiko Koroma RN Information not available 08/28/2023 18:47:59 Exacerbati on Care Reduction Reports a reduction in the number of occurrences to seek care for chronic disease exacerbation [facility] 2023 Keiko Koroma RN Information not available 08/28/2023 18:47:59 Fluid Balance Management Exhibits no signs or symptoms related to fluid imbalance [facility] 2023 Keiko Koroma RN Information not available 08/28/2023 18:47:59 Blood Pressure Maintains blood pressure goal as defined by care team [facility] active 2023 Keiko Koroma RN Information not available 08/28/2023 18:47:59 Effective Coping Manages life events with effective coping methods [facility] 2023 Keiko Koroma RN Information not available 08/28/2023 18:47:59 Blood Glucose Maintains blood glucose within target range [facility] active 2023 Keiko Koroma RN Information not available 08/28/2023 18:48:00 Decreased Alcohol Consumptio n Reports decreased alcohol consumption as per care team recommendation (s) [facility] 2023 Keiko Koroma RN Information not available 08/28/2023 18:48:00 Diagnostic Testing Completes diagnostic testing as per care team recommendation (s) [facility] active 2023 Keiko Koroma RN Information not available 08/28/2023 18:48:00 Chronic Disease Symptom Management Reports no new or worsening symptoms [facility] active 2023 Keiko Koroma RN Information not available 08/28/2023 18:48:00 Stress Management Reports effective management of stress [facility] active 2023 Keiko Koroma RN Information not available 08/28/2023 18:48:00 Nutritiona l Risks Reduction Reports reduction in nutritional risks [facility] active 2023 Keiko Koroma RN Information not available 08/28/2023 18:48:00 Weight Maintenanc e Exhibits stable weight with normal fluctuation [facility] active 2023 Keiko Koroma RN Information not available 08/28/2023 18:48:01 Health Concerns Section Related Observation LastModified by Organization Detai ls LastModified Time Not Available Not Available Not Available Not Availabl e Concern Status LastModified by Organization Details LastModified Time Anemia Active Keiko Koroma RN Not Available 18:45:14 Chronic kidney disease stage 2 Active Keiko Koroma RN Not Available 08/01/2023 1 8:45:50 Benign essential hypertension Active Keiko Koroma RN Not Available 10/02/2023 1 9:42:33 Depressive disorder Active Keiko Koroma RN Not Niecy ilable 08/01/2023 18:48:35 Advance Directives Directive N: Payers Encounter Date Sequence Insurance Name Policy Number Policy Martell Covered Member ID Martell Member ID Guarantor Name 10/24/2023 1 [facility] (MEDICARE REPLACEMENT/AD VANTAGE - HMO) [id number] Tony Lainez [id number] Tony Lainez 03/12/2024 1 [facility] (MEDICARE REPLACEMENT/AD VANTAGE - HMO) [id number] Tony Lainez [id number] Tony Lainez 03/13/2024 1 [facility] (MEDICARE REPLACEMENT/AD VANTAGE - HMO) [id number] Tony Lainez [id number] Tony Ohdith 03/13/2024 2 [place] MEDICARE REPLACEMENT PRIMARY) Tony Ohdith [id number] Tony Ohdith 04/02/2024 1 [facility] (MEDICARE REPLACEMENT/AD VANTAGE - HMO) [id number] Tony Ohdith [id number] Tony Ohdith 04/02/2024 2 [place]ICARE REPLACEMENT PRIMARY) Tony Ohdith [id number] Tony Ohdith 05/28/2024 1 [facility] (MEDICARE REPLACEMENT/AD VANTAGE - HMO) [id number] Tony Ohdith [id number] Tony Ohdith 05/28/2024 2 [place] OR [place]ICARE REPLACEMENT PRIMARY) Tony Ohdith [id number] Tony Lainez Notes Date Note Type Note Provider Name and Address Organization Details Recorded Time 4 text/html Patient Name: Tony LainezDate Of Service: Sunday ( 10.24.2023 ): 1965 Age: 58 There has been approximately a 3 lb weight gain since 07/10/2023. This represents approximately a 1.2% change in weight. Weight change attributable to lifestyle changes. Vital Signs:Blood Pressure: Sitting Rt. Arm 130/82Pulse: Sitting 77 /min and RegularRespiratory Rate: 14Height 70 in or 1.8 mWeight 245 lb or 111.1 kgBMI 35.1 Chief Complaint: Addressed in HPI Problems or conditions discussed in the HPI were the only ones reviewed during the encounter.Only social and family history addressed in the HPI were reviewed during this encounter. Attendant(s): NoneConstitutional and Systemic Symptoms:none Medication Reconciliation: by patient. [id number]: MRI of the lumbar spine showed significant bilateral neural foraminal stenosis L5-S1 secondary to Grade 1 anterolisthesis and circumferential broad dose bulge endplate hypertrophy at L5 with spondylolysis. No significant central canal stenosis. 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 History of Present Illness #1. Essential Hypertension: Stage: Stage I Interval Neurological Complaints no headaches, dizziness, weakness, visual changes, ataxia, aphasia and apraxia. No shortness of breath, orthopnea or cardiovascular symptoms. No other symptoms related to end organ damage. Pressure has been under excellent control. Currently normal. No other end organ symptoms or findings. Therapy reviewed regarding management of hypertension and includes salt restriction and Amlodipine, Inderal and Prinivil. #2. Type II Hypercholesterolaemia: Currently taking medication and tolerating well. No interval complaints of any muscle pain or arthralgia. No significant liver changes with medications. Last lipid panel: fair control. Therapy reviewed regarding treatment of cholesterol management and include diet and Lipitor. #3. Type II Diabetes: Has had no polyuria polyphagia or polydipsia. Has had no hypoglycemic like responses. No new history of any numbness, tingling, weakness or visual problems. No nausea, anorexia or other constitutional symptoms. There has been no foot problems or non healing lesions. [facility] Calculated MB mg%. Average blood sugars 125-150 mg%. Checking sugars : not at all Medication Types Include: Metformin and SGLT2 inhibitors Secondary complications include none. Macro-vascular complications include none. Therapy reviewed regarding diabetic management and include Metformin Hydrochloride Compliance: good Renal Protection: RENU inhibitors Lipid management: statins Urinary microalbumin: A1 . Ophthalmological: has seen eye doctor within the last year #4. Gouty Arthritis: History of gouty arthritis. Has had no attacks since last examination. Currently taking allopurinol. No interval complaints of any new joint involvement. #5. Hx of obesity. Currently Class 2 Obesity BMI 35-39.99. Has tried numerous dietary support and supplements with no benefit. Instructed on the health consequences of the obese status particularly cancer - diabetes and heart disease. Discussed other modalities of weight loss GLP-1 medications that are used to treat diabetes. Potential candidate for bariatric surgery: No. Wishes to be evaluated by Dietary: No and was offered to be evaluated and instructed by director patient accounting on weight loss diet. Active Medication ListTestosterone One Injection Every Other WeekAllopurinol 100 MG (TABLET - ORAL) Once DailyBuspar 30 MG (TABLET - ORAL) One Tablet Twice A DayAmlodipine 10 MG (TABLET - ORAL) One DailyInderal 40 MG One BidPrinivil 40 MG (TABLET - ORAL) Once DailyTrintellix 20 MG (TABLET - ORAL) DailyVraylar 6 MG CAPSULE, GELATIN COATED One DailyMetformin Hydrochloride 1 GM (TABLET - ORAL) One BidLipitor 20 MG (TABLET - ORAL) Once DailyCalcitriol 0.25MCG (CAPSULE - ORAL) One DailyVitamin D 50,000 IU (CAPSULE - ORAL) One WeeklyFarxiga 5 MG TABLET, FILM COATED Once DailyDoxazosin 2 MG TABLET Once DailyQuetiapine Fumarate 25 MG TABLET, FILM COATED One Three Times A Day Adverse Drug Reactions ReviewedAmoxicillin Rash Vaccination and [id number] [id number] Covid [facility] [id number] Lt. CTS and Cubital [id number] L5 Interbody Fusion Preventative Testing( ) 07/02/2023 HAIC 6.8 % H( ) 05/21/2023 Optometry( ) 02/28/2023 Albumin 4.6 G/DL( ) 02/28/2023 PSA 0.43 NG/ML 02/29/2024( ) 02/28/2023 Micro Albumin 10.4 MG/L( ) 07/23/2014 Colonoscopy (10 Years) 07/23/2024( ) 08/10/2010 Ophthalmology Social HistoryDoes not smokeDrinks sociallyCurrently unemployed Family HistoryMother 88 Cholesterol and PrediabetesFather 56 from essential hypertension and Type II DiabetesTwo sisters both living one with essential hypertension and DMOne brother with essential hypertension and Type II Diabetes Jayne Fall MD [address] [place] [address], [id number], [place] [facility] [employer] [facility] 10/24/2023 11:40:09 5 text/html Patient Name: Tony LainezKamarite Of Service: Sunday ( 03.12.2024 ): 1965 Age: 59 There has been approximately a 7 lb weight gain since 10/24/2023. This represents approximately a 2.9% change in weight. Weight change attributable to lifestyle changes. Vital Signs:Blood Pressure: Sitting Rt. Arm 122/74Pulse: Sitting 71 /min and RegularRespiratory Rate: 16Height 70 in or 1.8 mWeight 252 lb or 114.3 kgBMI 36.2Temperature: 98 F or 36.7 CPulse Oximetry: 97 % at rest on no oxygen Chief Complaint: Addressed in HPI Problems or conditions discussed in the HPI were the only ones reviewed during the encounter.Only social and family history addressed in the HPI were reviewed during this encounter. Attendant(s): WifeConstitutional and Systemic Symptoms:none Medication Reconciliation: from medication list. [id number]: MRI of the lumbar spine showed significant bilateral neural foraminal stenosis L5-S1 secondary to Grade 1 anterolisthesis and circumferential broad dose bulge endplate hypertrophy at L5 with spondylolysis. No significant central canal stenosis. 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 History of Present Illness #1. Complaining of left hip pain duration several weeks. No history of any associated injury. Aggravated by standing and lying down. To some extent exacerbated by ambulation as well. Located predominantly more in the lateral surface of the hip possibly suggesting some greater trochanteric bursitis. Has been taking pain medicines for his back and that with some relief. If suggested he try to Tylenol along with it. Should not be taking any nonsteroidals because of his renal dysfunction. Will need to get radiographic studies and set up with orthopedics for possible steroid injection.: #2. Essential Hypertension: Stage: Stage I Interval Neurological Complaints no headaches, dizziness, weakness, visual changes, ataxia, aphasia and apraxia. No shortness of breath, orthopnea or cardiovascular symptoms. No other symptoms related to end organ damage. Pressure has been under excellent control. Currently normal. No other end organ symptoms or findings. Therapy reviewed regarding management of hypertension and includes salt restriction and Amlodipine and Prinivil. #3. Type II Hypercholesterolaemia: Currently taking medication and tolerating well. No interval complaints of any muscle pain or arthralgia. No significant liver changes with medications. Last lipid panel: fair control. Therapy reviewed regarding treatment of cholesterol management and include diet and Lipitor. #4. Type II Diabetes: Has had no polyuria polyphagia or polydipsia. Has had no hypoglycemic like responses. No new history of any numbness, tingling, weakness or visual problems. No nausea, anorexia or other constitutional symptoms. There has been no foot problems or non healing lesions. The last HAIC was [facility] HAIC: 6.7 Calculated MB mg%. CGM: No. Average blood sugars not taking blood sugars regularly and instructed on the importance of monitor these values. Checking sugars : not at all. Medication Types Include: Metformin and SGLT2 inhibitors Secondary complications include none. Macro-vascular complications include none. Therapy reviewed regarding diabetic management and include Farxiga and Metformin Hydrochloride Compliance: good Renal Protection: RENU inhibitors Lipid management: statins Urinary microalbumin: A1 . Ophthalmological: has seen eye doctor within the last year. Control: Good Control 6.2 - 7.0 #5. Hx of obesity. Currently Class 2 Obesity BMI 35-39.99. Has tried numerous dietary support and supplements with no benefit. Instructed on the health consequences of the obese status particularly cancer - diabetes and heart disease. Discussed other modalities of weight loss no . Potential candidate for bariatric surgery: No. Wishes to be evaluated by Dietary: No and was offered to be evaluated and instructed by director patient accounting on weight loss diet. Active Medication ListTestosterone One Injection Every Other WeekAllopurinol 100 MG (TABLET - ORAL) Once DailyBuspar 30 MG (TABLET - ORAL) One Tablet Twice A DayAmlodipine 10 MG (TABLET - ORAL) One DailyInderal 40 MG One BidPrinivil 40 MG (TABLET - ORAL) Once DailyTrintellix 20 MG (TABLET - ORAL) DailyVraylar 6 MG CAPSULE, GELATIN COATED One DailyMetformin Hydrochloride 1 GM (TABLET - ORAL) One BidLipitor 20 MG (TABLET - ORAL) Once DailyCalcitriol 0.25MCG (CAPSULE - ORAL) One DailyVitamin D 50,000 IU (CAPSULE - ORAL) One WeeklyFarxiga 5 MG TABLET, FILM COATED Once DailyDoxazosin 2 MG TABLET Once DailyQuetiapine Fumarate 25 MG TABLET, FILM COATED One Three Times A Day Adverse Drug Reactions ReviewedAmoxicillin Rash Vaccination and Immunization(X) 2021- INFLUENZA(X) 2020- COVID [facility] [id number] Lt. CTS and Cubital Aszlik9661-55 L5 Interbody Fusion Preventative Testing( ) 01/09/2024 Albumin 4.4 G/DL( ) 01/09/2024 Micro Albumin 27.6 MG/L H( ) 01/09/2024 HAIC 6.7 % H( ) 05/21/2023 Optometry(X) 02/28/2023 PSA 0.43 NG/ML 02/29/2024( ) 07/23/2014 Colonoscopy (10 Years) 07/23/2024( ) 08/10/2010 Ophthalmology Social HistoryDoes not smokeDrinks sociallyCurrently unemployed Family HistoryMother 88 Cholesterol and PrediabetesFather 56 from essential hypertension and Type II DiabetesTwo sisters both living one with essential hypertension and DMOne brother with essential hypertension and Type II Diabetes TEST RESULT RANGE UNITSCBC/COMPLETE BLD COUNT W/DIFF Date: 01/09/2024WHITE BLOOD CELLS 7.8 4.2-10.8 X10'3/ULHEMOGLOBIN 16.3 13.2-17.0 G/DLHEMATOCRIT 48.0 39.3-50.0 %PLATELETS 163 150-400 X10'3/ULHEMOGLOBIN A1C Date: 01/09/2024HA1C 6.7 4.0-6.0 %COMPREHENSIVE METABOLIC PANEL Date: 01/09/2024SODIUM 135 137-145 MMOL/LPOTASSIUM 4.5 3.5-5.1 MMOL/LGLUCOSE 136 70-99 MG/DLBUN 20 8-19 MG/DLCREATININE 1.34 0.66-1.25 MG/DLGFR 55ALKALINE PHOSPHATASE 53 38-126 U/LALANINE AMINOTRANSFERASE 30 0-50 U/LASPARTATE AMINOTRANSFERASE 31 15-46 U/LBILIRUBIN, TOTAL 1.00 0.20-1.30 MG/DLCALCIUM 9.7 8.4-10.2 MG/DL Jayne Fall MD [address] [facility] [address], [place], [address], [facility] 03/12/2024 12:21:25 5 text/html the patient is a 59-year-old male who presents with a new problem today. He has left hip pain over the greater trochanteric region ongoing for about a month. He denies any specific trauma or injury to the hip has aching pain and tenderness over the greater trochanter can not sleep on that side he has been having to sleep on his back in a recliner. He does have a history of previous lumbar fusion foot appears to be L5-S1 but he denies any back pain, has no radicular pain down the legs we are into the buttocks, no numbness or tingling or weakness. Has no bowel or bladder symptoms. He is able to bear full weight has no groin pain the right hip does not bother him. He states if he sits too long or when he gets up 1st thing in the morning he has a hard time getting going because of the aching pain and stabbing sensation in the lateral left hip trochanteric region. Once he moves around does little bit of activity the symptoms subside somewhat. They do keep him awake at night however. He has had to modify his sleep activities. He states he can not take oral anti-inflammatory medications because he has chronic kidney disease he has a history of diabetes and hypertension. He really has no other recent history of treatment or conservative measures other than trying to rest it give it time. He comes in today after continuing to have significant pain. A new past medical history sheet was reviewed and signed on the intake sheet of today's date drug allergies current medications family social history previous surgical history 10 point review of systems was reviewed and discussed in detail today with the patient. REYES Viveros [address] [facility], [facility] [address], [place], [address], [place] [facility] [employer] 03/13/2024 12:03:14
--- OUTSIDE RECORDS SUMMARY | 2024-06-05 10:24 | XMS_ITS | Patient Health Record ---
Author Organization [facility] Address [address] [place] [address] Care Team Providers Care Outsole Handler Name Role Phone Danyel Tello Unavailable [phone] REASON FOR REFERRAL No Information MEDICATIONS Medication SIG (Take, Route, Frequency, Duration) Notes Start Date End Date Status Cardura 2 MG 1 tablet Orally Once a day for 90 days 03/15/2022 Active Calcitriol 0.25 MCG 1 capsule Orally Onc e a day for 90 day(s) 11/01/2022 11/02/2024 Active Ergocalciferol 1.25 MG (16452 UT) 1 capsule Orally Once a week for 90 day(s) 02/06/2024 11/02/2024 Active Allopurinol 100 MG TAKE 1 TABLET BY GIANCARLO TH EVERY DAY for 90 Active Doxazosin Mesylate 2 MG 1 tablet Orally Once a day for 90 days 11/01/2022 11/02/2024 Active PROBLEMS Problem Type ICD Code Onset Dates Problem Status W/U Status Risk SNOMED Code Notes Problem Myelodysplastic syndrome, unspecified (D46.9) Active confirmed Myelodysplastic syndrome (092975897) Problem Secondary hyperparathyroidism, not elsewhere classified (E21.1) Active confirmed Secondary hyperparathyroidism (37172403) Problem 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) Active confirmed Angina (332160997 ) Problem Renal osteodystrophy (N25.0) Active confirmed Renal osteodyst rophy (59241976) Problem Secondary hyperparathyroidism of renal origin (N25.81) Active confirmed Secondary hyperparathyroidism of renal origin (07921870) Problem Proteinuria, unspecified (R80.9) Active confirmed Proteinu tala (65706651) Problem Essential hypertension (I10) Active confirmed Essential hypertension (15045484) Problem Bacteriuria (R82.71) Active confirmed B acteriuria (33520727) Problem Chronic kidney disease, stage 3 unspecified (N18.30) Active confirmed Chronic kidney disease stage 3 (disorder) (954859801) Encounters Encounter Location Date Provider Diagnosis [place] [address] [place] [address] 07/18/2023 Danyel Tello Chronic kidney disea se, stage 2 (mild) N18.2 ; Bacteriuria R82.71 ; Renal osteodystrophy N25.0 ; Secondary hyperparathyroidism, not elsewhere classified E21.1 and Essential (primary) hypertension I10 [facility] [address] [place] [address] 10/17/2023 Danyel Tello Chronic kidney disea se, stage 3 unspecified N18.30 ; Renal osteodystrophy N25.0 ; Essential (primary) hypertension I10 ; Bacteriuria R82.71 and Secondary hyperparathyroidism, not elsewhere classified E21.1 [facility] [address] [place] [address] 01/16/2024 Danyel Tello [facility] [address] [place] [address] 02/06/2024 Danyel Tello Chronic kidney disea se, stage 3 unspecified N18.30 ; Essential (primary) hypertension I10 ; Hypo-osmolality and hyponatremia E87.1 and Renal osteodystrophy N25.0 [facility] [address] [place] [address] 05/21/2024 Danyel Tello Chronic kidney disea se, stage 3 unspecified N18.30 ; Bacteriuria R82.71 ; Renal osteodystrophy N25.0 ; Secondary hyperparathyroidism, not elsewhere classified E21.1 ; Essential hypertension I10 ; Secondary hyperparathyroidism of renal origin N25.81 ; Atherosclerotic heart disease of [place] coronary artery with unspecified angina pectoris I25.119 ; Myelodysplastic syndrome, unspecified D46.9 and Proteinuria, unspecified R80.9 [facility] [address] [place] [address] 07/18/2023 Danyel [facility] [address] [place] [address] 02/06/2024 Danyel Tello ASSESSMENTS Encounter Date Diagnosis Assessment Notes Treatment Notes Treatment Clinical Notes Section Notes 07/18/2023 Chronic kidney disea se, stage 2 (mild) (ICD-10 - N18.2) 10/17/2023 Chronic kidney disea se, stage 3 unspecified (ICD-10 - N18.30) 02/06/2024 Chronic kidney disea se, stage 3 unspecified (ICD-10 - N18.30) 05/21/2024 Chronic kidney disea se, stage 3 unspecified (ICD-10 - N18.30) 05/21/2024 Bacteriuria (ICD-10 - R82.71) 02/06/2024 Essential (primary) hypertension (ICD-10 - I10) 07/18/2023 Bacteriuria (ICD-10 - R82.71) 10/17/2023 Renal osteodystrophy (ICD-10 - N25.0) 07/18/2023 Renal osteodystrophy (ICD-10 - N25.0) 02/06/2024 Hypo-osmolality and hyponatremia (ICD-10 - E87.1) 05/21/2024 Renal osteodystrophy (ICD-10 - N25.0) 10/17/2023 Essential (primary) hypertension (ICD-10 - I10) 05/21/2024 Secondary hyperparathyroidism, not elsewhere classified (ICD-10 - E21.1) 02/06/2024 Renal osteodystrophy (ICD-10 - N25.0) 10/17/2023 Bacteriuria (ICD-10 - R82.71) 07/18/2023 Secondary hyperparathyroidism, not elsewhere classified (ICD-10 - E21.1) 07/18/2023 Essential (primary) hypertension (ICD-10 - I10) 10/17/2023 Secondary hyperparathyroidism, not elsewhere classified (ICD-10 - E21.1) 05/21/2024 Essential hypertensi on (ICD-10 - I10) 05/21/2024 Secondary hyperparathyroidism of renal origin (ICD-10 - N25.81) 05/21/2024 Atherosclerotic hear t disease of [place] coronary artery with unspecified angina pectoris (ICD-10 - I25.119) 05/21/2024 Myelodysplastic syndrome, unspecified (ICD-10 - D46.9) 05/21/2024 Proteinuria, unspecified (ICD-10 - R80.9) PLAN OF TREATMENT Next Appt Details Provider Name:Danyel Tello , 08/20/2024 02:45:00 PM, [address], [facility], [place], [address],
--- OUTSIDE RECORDS SUMMARY | 2024-06-05 10:24 | XMS_ITS ---
Author Organization [facility] [employer] [facility] Address [address] [facility] [address] [facility] [address] [place] [address] Care Team Providers Care Flour Mixer Helper Name Role Phone Jaime Fall MD Primary Care Provider Maninder Al Unavailable [phone] Social History Sex Assigned At : Social History Observation Description Sex Assigned At Male Encounters Encounter Location Date Provider Diagnosis [facility] [employer] [facility] [address] [facility] [address] [place] [address] 12/19/2023 Maninder Collins Plan Of Treatment Next Appt Details Provider Name:Maninder aguayo, 06/09/2024 09:00:00 AM, [address], [facility] [address], [place], [address], Progress Notes * GUANACO ECHEVARRIADOB: [birth year] (58 yo M)Acc No.[id number]:12/19/2023 Patient: GUANACO FIORE :1965 A ge:58 Y S ex:Male Address:[address] [place] [address], [phone] * true * Date: Generated for Albert barrett/Jeanette/eTransmitting on: 0 06/05/2024 10:24 AM CDT
--- OUTSIDE RECORDS SUMMARY | 2024-06-05 10:24 | XMS_ITS ---
Author Organization [facility] Address [address] [facility] [address] [facility] [address] [place] [address] Care Team Providers Care Sanitation Laborer Name Role Phone Danyel Tello Unavailable [phone] MEDICATIONS Medication SIG (Take, Route, Frequency, Duration) Notes Start Date End Date Status Calcitriol 0.25 MCG 1 capsule Orally Onc e a day for 90 day(s) 11/01/2022 11/02/2024 Active Ergocalciferol 1.25 MG (91181 UT) 1 capsule Orally Once a week for 90 day(s) 02/06/2024 11/02/2024 Active Doxazosin Mesylate 2 MG 1 tablet Orally Once a day for 90 days 11/01/2022 11/02/2024 Active Encounters Encounter Location Date Provider Diagnosis [place] [facility] [address] [facility] [address] [place] [address] 02/06/2024 Danyel Tello PLAN OF TREATMENT Medication Medication Name Sig Start Date Stop Date Notes Calcitriol 0.25 MCG 1 capsule Orally Onc e a day for 90 day(s) 11/01/2022 11/02/2024 Ergocalciferol 1.25 MG (5000 0 UT) 1 capsule Orally Once a week for 90 day(s) 02/06/2024 11/02/2024 Doxazosin Mesylate 2 MG 1 tablet Orally Once a day for 90 days 11/01/2022 11/02/2024 Next Appt Details Provider Name:Danyel Tello , 08/20/2024 02:45:00 PM, [address] [facility], [facility] [address], [place], [address], Progress Notes * GUANACO ECHEVARRIADOB: [birth year] (59 yo M)Acc No.[id number]:02/06/2024 Patient: GUANACO ECHEVARRIA :1965 Age:59 Y Sex:Male Address:[address] [place] [address] * Refills Refill Doxazosin Mesylate Tablet, 2 MG, Orally, 90 Tablet, 1 tablet, Once a day, 90 days, Refills=2 Refill Calcitriol Capsule, 0.25 MCG, Orally, 90 Capsule, 1 capsule, Once a day, 90 day(s), Refills=2 Start Ergocalciferol Capsule, 1.25 MG (46312 UT), Orally, 13, 1 capsule, Once a week, 90 day(s), Refills=2 * true * Date:
--- OUTSIDE RECORDS SUMMARY | 2024-06-05 10:24 | XMS_ITS | Continuity of Care Document ---
Author Organization [facility] Address [address] [place] [address] [address] [place] [address] Phone Care Team Providers Care Filler In Name Role Phone Alfredo Pavon Unavailable Unavailable Procedures Procedure Date Eye Exam & Treatment Dilated Retinal Exam W Interpretation Fe Refraction Optic Nerve Topography-Professional Optic Nerve Topography-Professional Optic Nerve Topography Optic Nerve Topography Office/outpatient Visit, Est Optic Nerve Head Eval Dilated Retinal Exam W Interpretation De Visual Field Examination-Professional Visual Field Examination(s) Eye Exam & Treatment Optic Nerve Head Eval Dilated Retinal Exam W Interpretation Ma Eye Exam & Treatment Advance Directives Directive Yes / No Effective Date File Name No Information Encounters Encounter Description Practice Location Reason(s) For Visit Diagnoses Date Provider Providers Copied on Encounter [facility], [address] [place] [address] [address], [place], [place], [id number], [place] tel:[phone] SEC [facility] No Information 0-201 0 Librado Fuentes. [address] [address] [place] , [address], [place], [address], [place]. tel:[phone] [facility], [address] [place] [address] [address], [place], [place], [address], [place] tel:[phone] [facility] [place] No Information Nov2 2-200 9 Krishnasamy Jose. [address] [place], [place] [address]ate [place] [address], [place], [place], [facility], [place]. tel:[phone] Referring Provider: Jose bloom, [address] [place], [place] [address]ate [address], [place], [place], [facility]. tel:[phone] [facility], [address], [place], [place], [address], [place] tel:[phone] [facility] [place] No Information 2 1-200 9 Librado Fuentes. [address] [place] [address] , [address], [place], [place], [facility], [place]. tel:[phone] Referring Provider: Alfredo Mathew, [address] [place], [place] [address]ate [place] [address], [place], [place], [facility]. tel:[phone] Office/outpat ient Visit, Est [facility], [address] [place] [address] [address], [place], [place], [address], [place] tel:[phone] SEC [facility] No Information Feb-0 8-200 8 Librado Fuentes. [address] [place] [address] , [address], [place], [place], [facility], [place]. tel:[phone] [facility], [address], [place], [place], [address], [place] tel:[phone] [facility] [place] No Information 7-200 8 Krishnaslio Jose. [address] [place], [place] [address]ate [place] [address], [place], [place], [facility], [place]. tel:[phone] Referring Provider: Jose bloom, [address] [place], [place] [address]ate [place] [address], [place], [place], [facility]. tel:[phone] [facility], [address], [place], [place], [address], [place] tel:[phone] [facility] [place] No Information 2-200 8 Dimitris Garcia. [facility] [address], [place], [address], [place]. tel:[phone] Referring Provider: Jose bolom, [address] [place] [address] [address], [place], [address]. tel:[phone] [facility], [address] [facility] [address], [place], [place], [address], [place] tel:[phone] SEC [facility] No Information 2-200 8 Dimitris Garcia. [address] [place] [address], [place], [address], [place]. tel:[phone] [facility], [address], [place], [place], [address], [place] tel:[phone] SEC [facility] No Information 8-200 7 Vicky Ramirez. [address] [facility], [address], [place], [place], [address], [place]. tel:[phone] Family History Family Member Type Diagnosis Age At Onset No Information Payers Payer name Insurance type Covered constitution party ID Authoriza tion(s) Medicare [facility] [id number] Medicaid [facility] [id number] Social History Type Description Quantity Date Captured Comments Sex Male Smoking Status No Information Chief Complaint And Reason For Visit No Information Reason For Referral Reason For Referral No Information History Of Present Illness Encounter Date Complaint History Of Prese nt Illness No Information Functional Status Date Functional Assessmen t No Information Instructions Date Instruction Additional Infor mation No Information Assessments Type Assessment Date No Information Patient Care Teams Name Effective Dates (start - stop) Status Members No Information
--- OUTSIDE RECORDS SUMMARY | 2024-06-05 10:25 | XMS_ITS ---
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81 ; Atherosclerotic heart disease of [place] coronary artery with unspecified angina pectoris I25.119 ; Myelodysplastic syndrome, unspecified D46.9 and Proteinuria, unspecified R80.9 ASSESSMENTS Encounter Date Diagnosis Assessment Notes Treatment Notes Treatment Clinical Notes Section Notes 05/21/2024 Chronic kidney disea se, stage 3 unspecified (ICD-10 - N18.30) 05/21/2024 Bacteriuria (ICD-10 - R82.71) 05/21/2024 Renal osteodystrophy (ICD-10 - N25.0) 05/21/2024 Secondary hyperparathyroidism, not elsewhere classified (ICD-10 - E21.1) 05/21/2024 Essential hypertensi on (ICD-10 - I10) 05/21/2024 Secondary hyperparathyroidism of renal origin (ICD-10 - N25.81) 05/21/2024 Atherosclerotic hear t disease of [place] coronary artery with unspecified angina pectoris (ICD-10 - I25.119) 05/21/2024 Myelodysplastic syndrome, unspecified (ICD-10 - D46.9) 05/21/2024 Proteinuria, unspecified (ICD-10 - R80.9) PLAN OF TREATMENT Next Appt Details Provider Name:Danyel Tello , 08/20/2024 02:45:00 PM, [address] [facility] [address], [place], [facility], Progress Notes * GUANACO ECHEVARRIADOB: [birth year] (59 yo M)Acc No.[id number]:05/21/2024 Progress Notes Patient: GUANACO ECHEVARRIA Provider: MD SHAHLA, F.A.C.P, F.A.S.N. :1965 Age:59 Y Sex:Male Date:05/21/2024 Address:[address] [place] [address] Subjective: * Chief Complaints: * * Medical History: Objective: Assessment: * Assessment: 1. Chronic kidney disease, stage 3 unspecified - N18.30 (Primary) 2. Bacteriuria - R82.71 3. Renal osteodystrophy - N25.0 4. Secondary hyperparathyroidism, not elsewhere classified - E21.1 5. Essential hypertension - I10 6. Secondary hyperparathyroidism of renal origin - N25.81 7. Atherosclerotic heart disease of [place] coronary artery with unspecified angina pectoris - I25.119 8. Myelodysplastic syndrome, unspecified - D46.9 9. Proteinuria, unspecified - R80.9 Plan: * Treatment: * Billing Information: * Visit Code: 07189 Office Visit, Est Pt., Level 5. * Procedure Codes: * Sign off status: Pending * Provider: MD SHAHLA, F.A.C.P, F.A.S.N. Date: 05/21/2024
--- OUTSIDE RECORDS SUMMARY | 2024-06-05 10:25 | XMS_ITS | Clinical Summary ---
Author Organization [facility] Address [address] [place] [address] Care Team Providers Care Liquid Sugar Fortifier Name Role Phone Jaime Fall MD Primary Care Provider [phone] Danyel Tello MD Unavailable [phone] Allergies Active Allergy Reactions Criticality Noted Date Comments Penicillins Hives,Rash Low 08/29/2022 Medications allopurinol (ZYLOPRIM) 100 MG tabletIndication s:Gout Prophylaxis Take 1 tablet by mouth daily. Indications: Treatment to Prevent Gout Attacks Active ALPRAZolam (XANAX) 1 MG tabletIndication s:Anxiety Take 1 tablet by mouth 3 (three) times daily as needed for Anxiety. Indications: Feeling Anxious Active amLODIPine (NORVASC) 10 MG tabletIndication s:Hypertension Take 1 tablet by mouth nightly. Indications: High Blood Pressure Disorder Active atorvastatin (LIPITOR) 20 MG tabletIndication s:Hyperlipidemia Take 1 tablet by mouth nightly at bedtime. Indications: High Amount of Fats in the Blood Active busPIRone (BUSPAR) 30 MG tabletIndication s:Anxiety Take 1 tablet by mouth 2 (two) times daily. Indications: Feeling Anxious Active calcitriol (ROCALTROL) 0.25 MCG capsuleIndicatio ns:supplement Take 1 capsule by mouth daily. Indications: supplement Active Cariprazine HCl (VRAYLAR) 6 MG CapIndications:B ipolar disorder Take 1 tablet by mouth daily. Indications: Bipolar disorder Active doxazosin (CARDURA) 2 MG tabletIndication s:Hypertension Take 1 tablet by mouth nightly at bedtime. Indications: High Blood Pressure Disorder Active vitamin D2, ergocalciferol, (ISDOL) 1.25 mg capsuleIndicatio ns:supplement Take 1 capsule by mouth every 7 days. Indications: supplement Active lisinopril (PRINIVIL) 40 MG tabletIndication s:Hypertension Take 1 tablet by mouth nightly. Indications: High Blood Pressure Disorder Active metFORMIN (GLUCOPHAGE) 1000 MG tabletIndication s:Diabetes Mellitus Take 1 tablet by mouth 2 (two) times daily with meals. Indications: Diabetes Active propranolol (INDERAL) 40 MG tabletIndication s:Hypertension Take 1 tablet by mouth 2 (two) times daily. Indications: High Blood Pressure Disorder Active QUEtiapine (SEROQUEL) 25 MG tabletIndication s:Bipolar disorder Take 1 tablet by mouth nightly at bedtime. Indications: Bipolar disorder Active testosterone cypionate (DEPO TESTOSTERONE) 200 MG/ML injectionIndicat ions:Fluctuating Testosterone Levels (Inactive) Inject 1 mL into the muscle every 14 (fourteen) days. Indications: Fluctuating Testosterone Levels Active vortioxetine (TRINTELLIX) 20 MG tabletIndication s:Depression Take 1 tablet by mouth daily. Indications: Depression Active senna-docusate (SENOKOT-S) 8.6-50 MG tabletIndication s:Constipation Prophylaxis Take 1 tablet by mouth daily. 60 tablet 1 3 Active HYDROcodone-acet aminophen (NORCO) 5-325 MG tabletIndication s:Acute Pain < 7 Day Supply,post op Take 1-2 tablets by mouth every 6 (six) hours as needed for Pain. Indications: Acute Pain < 7 Day Supply, post op 55 tablet 3 Active Active Problems Problem Noted Date Diagnosed Date Spondylolisthesis at L5-S1 level 09/04/2022 Social History Tobacco Use Types Packs/Day Years Used Date Smoking Tobacco: Never Smokeless Tobacco: Never Tobacco Cessation:Counseling Given: Not Answered OASIS D0700: Social Isolation Answer Da te Recorded Frequency of experiencing loneliness or isolatio n Never 09/20/2022 OASIS A1250: Transportation Answer Date Recorded Lack of Transportation (Medical) No 09/20/2022 Lack of Transportation (Non-Medical) No 09/20/2022 Patient Unable or Declines to Respond No 09/20/2022 OASIS B1300: Health Literacy Answer Marquez e Recorded Frequency of needing help to read materials from doctor or pharmacy Never 09/20/2022 Humiliation, Afraid, Rape, and Kick questionnair e Answer Date Recorded Within the last year, have y ou been afraid of your partner or ex-partner? No 09/04/2022 Within the last year, have y ou been humiliated or emotionally abused in other ways by your partner or ex-partner? No Within the last year, have y ou been kicked, hit, slapped, or otherwise physically hurt by your partner or ex-partner? No 09/04/2022 Within the last year, have y ou been raped or forced to have any kind of sexual activity by your partner or ex-partner? No 09/04/2022 Overall Financial Resource Strain (CARDIA) Answe r Date Recorded How hard is it for you to pa y for the very basics like food, housing, medical care, and heating? Not hard at all 09/04/2022 Hunger Vital Sign Answer Date Recorded Within the past 12 months, y ou worried that your food would run out before you got the money to buy more. Never true 09/05/19 23 Within the past 12 months, t he food you bought just didn't last and you didn't have money to get more. Never true 09/04/2022 PRAPARE - Transportation Answer Date Re corded In the past 12 months, has l ack of transportation kept you from medical appointments or from getting medications? No 05/2022 In the past 12 months, has l ack of transportation kept you from meetings, work, or from getting things needed for daily living? No 09/04/2022 Housing Stability Vital Sign Answer Marquez e Recorded In the last 12 months, was t here a time when you were not able to pay the mortgage or rent on time? No 09/04/2022 In the last 12 months, how many places have you lived? 1 09/04/2022 In the last 12 months, was t here a time when you did not have a steady place to sleep or slept in a halfway (including now)? No 09/04/2022 Sex and Gender Information Value Date Recorded Sex Assigned at Not on file Legal Sex Male 2:44 PM CDT Gender Identity Not on file Sexual Orientation Not on file Last Filed Vital Signs Vital Sign Reading Time Taken Comments Blood Pressure 148/78 09/20/2022 9:21 AM CDT Pulse 70 09/20/2022 9:21 AM CDT Temperature 36.5 C (97.7 F) 09/13/2022 9:52 AM CDT Respiratory Rate 18 09/20/2022 9:21 AM CDT Oxygen Saturation 99% 09/20/2022 9:21 AM CDT Room air Inhaled Oxygen Concentration - - Weight 113.7 kg (250 lb 9.6 oz) 09/06/2022 5:00 AM CDT Height 177.8 cm (5' 10 ) 09/04/2022 6:30 AM CDT Body Mass Index 35.96 09/04/2022 6:30 AM CDT Plan of Treatment Health Maintenance Due Date Last Done Comments Colorectal Cancer Screening Colonoscopy (10 Years) 1965 Annual Physical 01/19/1967 Hepatitis C 01/19/1982 Zoster Vaccines (1 of 2) 01/19/2014 09/16/2012 COVID-19 Vaccine ( season) 2023 11/18/2021, 06/09/2021, 11/30/2020, Additional history exists DTaP, Tdap and Td Vaccines (2 - Td or Tdap) 12/06/2024 12/06/2014 RSV Immunization or 60+ Years (1 - 1-dose 75+ series) 01/19/2039 Meningococcal B Vaccine Aged Out No l onger eligible based on patient's age to complete this topic Meningococcal Vaccine Aged Out No derrick patito eligible based on patient's age to complete this topic Pneumococcal Vaccine: Pediatrics (0 to 5 Years) and At-Risk Patients (6 to 64 Years) Aged Out No longer eligible based on patient's age to complete this topic RSV Immunizations Under 20 Months Aged Out No longer eligible based on patient's age to complete this topic Medical Devices Implanted Type Area Acid Pumper Device Identifier Shelf Expiration Date Model / Serial / Lot Graft Bone I Factor 1cc Allograft Putty Syringe - [id number] Implanted:Qty: 1 on 09/04/2022 by Dion Garcia MD at [facility] Bone N/A: Spine Lumbar [employer] [id number] 02/01/2025 700-010 / / [id number] Agent Hemostatic Thrombin Sterile Kit Matrix Surgiflo 8ml - [id number] Implanted:Qty: 3 on 09/04/2022 by Dion Garcia MD at [facility] Sealant N/A: Spine Lumbar [employer] - [employer] [id number] 11/03/2023 2994 / / [id number] Kevin Implanted:Qty: 1 on 09/04/2022 by Dion Garcia MD at [facility] N/A: Spine Lumbar ORTHOFIX 52-6040 / / Kevin Implanted:Qty: 1 on 09/04/2022 by Dion Garcia MD at [facility] Left: Spine Lumbar ORTHOFIX 52-6045 / / Interbody Cage Implanted:Qty: 1 on 09/04/2022 by Dion Garcia MD at [facility] N/A: Spine Lumbar [id number] 12/27/2026 [id number] / / [id number] Description:corelink Interbody Cage Implanted:Qty: 1 on 09/04/2022 by Dion Garcia MD at [facility] N/A: Spine Lumbar [id number] 12/27/2026 [id number] / / [id number] Description:corelink Set Screw Implanted:Qty: 4 on 09/04/2022 by Dion Garcia MD at [facility] N/A: Spine Lumbar ORTHOFIX 36-2001 / / Top Loading Body Implanted:Qty: 4 on 09/04/2022 by Dion Garcia MD at [facility] N/A: Spine Lumbar ORTHOFIX 36-2101 / / Screw Implanted:Qty: 1 on 09/04/2022 by Dion Garcia MD at [facility] N/A: Spine Lumbar ORTHOFIX 44-5545 / / Screw Implanted:Qty: 1 on 09/04/2022 by Dion Garcia MD at [facility] N/A: Spine Lumbar ORTHOFIX [id number] / / Screw Implanted:Qty: 2 on 09/04/2022 by Dion Garcia MD at [facility] N/A: Spine Lumbar ORTHOFIX 44-6877 / / Explanted Type Area Acid Pumper Device Identifier Shelf Expiration Date Model / Serial / Lot Kevin Explanted:Qty: 1 on 09/04/2022 by Dion Garcia MD at [facility] Left: Spine Lumbar ORTHOFIX [id number] / / Insurance [id number] MEDICAID Advance Directives * Full Code (Latest Code Status on File) Date Activated Date Inactivated Comments 09/10/2022 9:13 AM * Full Code Date Activated Date Inactivated Comments 09/04/2022 3:06 PM 09/06/2022 3:50 PM Care Teams Liquid Sugar Fortifier Relationship Specialty Start Date End Date Jaime Fall MD [address] [place] [address] PCP - General INTERNAL MEDICINE 08/15/22 Danyel Tello MD [address] [place] [phone] NEPHROLOGY 08/29/22
--- OUTSIDE RECORDS SUMMARY | 2024-06-05 10:25 | XMS_ITS | Continuity of Care Document ---
Author Name [facility] Organization [facility] Care Team Providers Care Retail Sales Clerk Name Role Phone [facility] Unavailable Unavailable Encounters Combined list of: 1) Encounters from Department of Veterans Affairs facilities going backup to the last 18 months, not all VA inpatient encounters are included; 2) Encounters from the Department of Defense facilities going backup to 280 months. Location Location Details Encounter Type Encounter Number Reason For Visit Attending Provider ADM Date DC Date Status Disposition Source [facility] Outpatient Encounter [id number] 3 01/07 [facility]
[2024-06-05 10:54] LABS: Anion Gap 12 mmol/L (4-12); Blood Urea Nitrogen 20 mg/dL (9-20); Calcium 9.4 mg/dL (8.4-10.2); Carbon Dioxide 24 mmol/L (22-30); Chloride 101 mmol/L (98-107); Estimated Glomerular Filt Rate > 60; Glucose 137 mg/dL (65-110); Potassium 4.8 mmol/L (3.4-5.0); Sodium 137 mmol/L (137-145)
== END 2024-06-05 09:47 | disposition home or self-care (01) ==
PROVIDERS: PCP Internal Medicine; Visit Provider Nurse Anesthetist, Certified Registered
DX: Z01.818 Encounter for other preprocedural examination (principal)
CPT/HCPCS: 36415; 80048; 93005

== ENCOUNTER 2024-06-21 13:30 | Emergency (ER) | payer MEDICARE, MEDICAID, SELFPAY ==
--- NOTE | ~2024-06-21 | XR_ITS ---
EXAMINATION: XR knee RT min 4V DATE: 06/21/2024 13:58 INDICATION: Hyperextension injury to the right knee. TECHNIQUE: Anteroposterior, 2 oblique and crosstable lateral views of the right knee were obtained COMPARISON: None. FINDINGS: Alignment is normal. No fracture. Mild joint space narrowing the medial compartment and tiny margina l osteophyte in the lateral compartment consistent with mild osteoarthritis. Enthesophytes at the pro ximal distal patella and enthesopathic ossicles at the distal patellar tendon. Moderate-sized right k nee joint effusion without layering lipohemarthrosis. Soft tissues are otherwise unremarkable. IMPRESSION: 1. Moderate-sized right knee joint effusion. No acute osseous abnormality. Reviewed, dictated and finalized at location A.
--- OUTSIDE RECORDS SUMMARY | 2024-06-21 13:33 | XMS_ITS | Continuity of Care Document ---
Author Organization [facility] Address [address] [place] [address] [address] [place] [address] Phone Care Team Providers Care Infant Toddler Lead Teacher Name Role Phone Alfredo Pavon Unavailable Unavailable [...] Diagnoses Date Provider Providers Copied on Encounter [facility], [address] [place] [address] [address], [place], [place], [id number], [place] tel:[phone] [facility] No Information 0-201 0 Librado Fuentes. [address] [facility] [place] , [address], [place], [address], [place]. tel:[phone] [facility], [address] [place] [address] [address], [place], [place], [id number], [place] tel:[phone] [facility] [place] No Information Nov2 2-200 9 Krishnasamy Jose. [address] [place], [place] [address]ate [place] [address], [place], [place], [facility], [place]. tel:[phone] Referring Provider: Jose bloom, [address] [place], [place] [address]ate [address], [place], [place], [facility]. tel:[phone] [facility], [address], [place], [place], [id number], [place] tel:[phone] [facility] [place] No Information 2 1-200 9 Librado Fuentes. [address] [place] [address] , [address], [place], [place], [facility], [place]. tel:[phone] Referring Provider: Alfredo Mathew, [address] [place], [place] [address] [address], [place], [place], [facility]. tel:[phone] Office/outpat ient Visit, Est [facility], [address] [place] [address] [address], [place], [place], [id number], [place] tel:[phone] [facility] No Information Feb-0 8-200 8 Librado Fuentes. [address] [place] [place] [address] , [address], [place], [place], [facility], [place]. tel:[phone] [facility], [address], [place], [place], [id number], [place] tel:[phone] [facility] [place] No Information 7-200 8 Krishnaslio Jose. [address] [place], [place] [address] [place] [address], [place], [facility], [place]. tel:[phone] Referring Provider: Jose bloom, [address] [place], [place] [address] [place] [address], [place], [facility]. tel:[phone] [facility], [address], [place], [place], [id number], [place] tel:[phone] [facility] [place] No Information 2-200 8 Dimitris Garcia. [facility] [address], [place], [address], [place]. tel:[phone] Referring Provider: Jose bloom, [address] [place] [address] [address], [place], [address]. tel:[phone] [facility], [address] [facility] [address], [place], [place], [id number], [place] tel:[phone] [facility] No Information 2-200 8 Dimitris Garcia. [address] [place] [address], [place], [address], [place]. tel:[phone] [facility], [address], [place], [place], [id number], [place] tel:[phone] [facility] No Information 8-200 7 Vicky Ramirez. [address] [facility], [address], [place], [place], [id number], [place]. tel:[phone] Family History Family Member Type Diagnosis Age At Onset No Information Payers Payer name Insurance type Covered democrat ID Authoriza tion(s) Medicare [facility] [id number] Medicaid [facility] [id number] Social History Type Description Quantity Date Captured [...]
--- OUTSIDE RECORDS SUMMARY | 2024-06-21 13:33 | XMS_ITS | Data Portability ---
Author Organization [place] [facility], Main Office Address [address] [place] [address] Care Team Providers Care [employer] Officer Name Role Phone JAYNE FALL Primary Care Provider [phone] JAYNE FALL Referring Provider KEIKO KOROMA Foreign Food Cook Specialty ABI FARR Barmaid Assessment Encounter Date Assessment Date Assessment LastModified [...] answered. Patient verbalized understanding of treatment plan amrit Not available 05/28/2024 11:30:02 Plan of Treatment Reminders Order Date Submit Date Provider Last Modified By Organization Details Last Modified Time Details Appointments Post-Op 10 2024 02:20P M Maki Bollone, PA-C Not available Not available Not available Lab PSA, serum or plasma 2024 025 [email or web address] [facility], [address] [place], [address], 03/21/2024 17:28:18 uric acid, serum or plasma 2023 024 [facility], [address] [place], [address], 10/25/2023 15:32:16 HbA1c (hemoglob in A1c), blood 2023 024 [email or web address] [facility], [address] [place], [address], 11/12/2023 17:12:20 lipid panel, serum 2023 024 [facility], [address] [place], [address], 10/25/2023 15:32:09 CMP, serum or plasma 2023 024 [facility], [address] [place], [address], 10/25/2023 15:32:14 Referral physical therapist referral - Please contact patient to schedule 2024 025 [facility] [place], [address] [facility], [place], [address], 03/24/2024 13:09:24 Procedures injection /aspirati on joint/bur sa (PROC) 2024 025 [email or web address] In-Office Order, Internal Use Only DO Not Attach Compendium DO Not Attach Compendium, Do Not Delete/merge, [id number] 03/13/2024 10:58:15 Surgeries None recorded. Imaging XR, knee, 4 or more view 2024 025 [email or web address] [facility] [place], [address], [place], [address], 05/28/2024 11:53:14 XR, femur 2024 025 [email or web address] [facility] [place], [address], [place], [address], 03/13/2024 12:03:33 XR, hip + pelvis, unilatera l 2024 025 [email or web address] [facility] [place], [address], [place], [address], 03/13/2024 11:59:40 MRI, hip, w/o contrast - please focus on proximal femur and compare with x-ray images patient will bring disc. 2024 025 [facility], [address], [place], [address], 03/27/2024 09:20:53 Medication Orders bupivacai ne HCl 0.5 % (5 mg/mL) injection solution [address] [place] [address] [id number], [address], [place], [id number], 05/28/2024 11:16:24 Kenalog 10 mg/mL suspensio n for injection [address] [place] [address] [id number] [place], [id number], 05/28/2024 11:16:17 Patient TargetsNo targets recorded. Patient Instructions Encounter Date Encounter Id Patient Instructions Last Modified By Organization Details Last Modified Time 10/24/2023 [id number] Follow-up essent ial hypertension, hyperlipidemia, type 2 [...] with voice recognition software. Occasional wrong-word or hovhb-d-dnmw substitutions may have occurred due to the inherent limitations of voice recognition software. Read the chart carefully and recognize, using context, where substitutions have occurred. Not available 10/24/2023 11:39:49 03/12/2024 [id number] Left hip pain, essential hypertension, hyperlipidemia, type [...] with voice recognition software. Occasional wrong-word or gyore-l-zbgj substitutions may have occurred due to the inherent limitations of voice recognition software. Read the chart carefully and recognize, using context, where substitutions have occurred. Created: Jayne Fall M.D. 03.12.2024 11:21 AM [email or web address] Not available 03/12/2024 12:21:09 Reason for Referral [...] 2016, 39(Sarabia ppl.1 ):s13 -s22 Not Available [facility] (Lab) [address] [place], [address], 10/25/2023 12:48:05 10/25/19 24 10/25/2023 LIPID PANEL cholesterol 119 mg/dL 140-19 9 low NIH MANUELITO NSUS RECOM MENDA TION FOR POOJA STERO L: ADULT CHILD LOW RISK: <200 <170 BORDE RLINE : <200- 239 ----- HIGH RISK: >240 >200 Not Available [facility] (Lab) [address] [place], [address], 10/25/2023 15:32:09 10/25/19 24 10/25/2023 LIPID PANEL triglyceride s 263 mg/dL 0-150 high NIH MANUELITO NSUS REPOR T RECOM MENDA TION FOR TRIGL YCERI KELLEY: ADULT CHILD LOW RISK: <150 ----- BODER LINE: 150-1 99 ----- HIGH RISK: >200 ----- Not Available [facility] (Lab) [address] [place], [address], 10/25/2023 15:32:09 10/25/19 24 10/25/2023 LIPID PANEL HDL cholesterol 38 mg/dL 40- low Not Available [facility] (Lab) [address] [place], [address], 10/25/2023 15:32:09 10/25/19 24 10/25/2023 LIPID PANEL [...] WILL NOT BE REPOR DEANNA. Not Available [facility] (Lab) [address] [place], [address], 10/25/2023 15:32:09 10/25/19 24 10/25/2023 COMPR EHENS SUZANNE METAB OLIC PANEL sodium 136 mmol/ L 137-14 5 low Not Available [facility] (Lab) [address] [place], [address], 10/25/2023 15:32:14 10/25/19 24 10/25/2023 COMPR EHENS SUZANNE METAB OLIC PANEL potassium 4.4 mmol/ L 3.5-5. 1 Not Available [facility] (Lab) [address] [place], [address], 10/25/2023 15:32:14 10/25/19 24 10/25/2023 COMPR EHENS SUZANNE METAB OLIC PANEL chloride 105 mmol/ L 98-107 Not Available [facility] (Lab) [address] [place], [address], 10/25/2023 15:32:14 10/25/19 24 10/25/2023 COMPR EHENS SUZANNE METAB OLIC PANEL carbon dioxide 26 mmol/ L 22-30 Not Available [facility] (Lab) [address] [place], [address], 10/25/2023 15:32:14 10/25/19 24 10/25/2023 COMPR EHENS SUZANNE METAB OLIC PANEL anion gap 9.4 mmol/ L 14-22 low Not Available [facility] (Lab) [address] [place], [address], 10/25/2023 15:32:14 10/25/19 24 10/25/2023 COMPR EHENS SUZANNE METAB OLIC PANEL glucose 128 mg/dL 70-99 high Not Available [facility] (Lab) [address] [place], [address], 10/25/2023 15:32:14 10/25/19 24 10/25/2023 COMPR EHENS SUZANNE METAB OLIC PANEL BUN 16 mg/dL 8-19 Not Available [facility] (Lab) [address] [place], [address], 10/25/2023 15:32:14 10/25/19 24 10/25/2023 COMPR EHENS SUZANNE METAB OLIC PANEL creatinine 1.22 mg/dL 0.66-1 .25 Not Available [facility] (Lab) [address] [place], [address], 10/25/2023 15:32:14 10/25/19 24 10/25/2023 COMPR EHENS SUZANNE METAB OLIC PANEL GFR >60 Refer ence Range : [place] ge GFR Healt hy Adult : >60 [...] or ethni c subgr oups, such as Hisia nics. Outsi de the valid ated anette [...] calcu lator is avail able on the [employer] websi te: [email or web address] :[email or web address] [email or web address] rg/pr ofess ional s/kdo qi/gf r_cal culat or Not Available [facility] (Lab) [address] [place], [address], 10/25/2023 15:32:14 10/25/19 24 10/25/2023 COMPR EHENS SUZANNE METAB OLIC PANEL alkaline phosphatase 58 U/L 38-126 Not Available [facility] (Lab) [address] [place], [address], 10/25/2023 15:32:14 10/25/19 24 10/25/2023 COMPR EHENS SUZANNE METAB OLIC PANEL alanine aminotransfe rase 32 U/L 0-50 Not Available [facility] (Lab) [address] [place], [address], 10/25/2023 15:32:14 10/25/19 24 10/25/2023 COMPR EHENS SUZANNE METAB OLIC PANEL aspartate aminotransfe rase 28 U/L 15-46 Not Available [facility] (Lab) [address] [place], [address], 10/25/2023 15:32:14 10/25/19 24 10/25/2023 COMPR EHENS SUZANNE METAB OLIC PANEL bilirubin, total 0.80 mg/dL 0.20-1 .30 Not Available [facility] (Lab) [address] [place], [address], 10/25/2023 15:32:14 10/25/19 24 10/25/2023 COMPR EHENS SUZANNE METAB OLIC PANEL calcium 9.5 mg/dL 8.4-10 .2 Not Available [facility] (Lab) [address] [place], [address], 10/25/2023 15:32:14 10/25/19 24 10/25/2023 COMPR EHENS SUZANNE METAB OLIC PANEL total protein 7.5 g/dL 6.3-8. 2 Not Available [facility] (Lab) [address] [place], [address], 10/25/2023 15:32:14 10/25/19 24 10/25/2023 COMPR EHENS SUZANNE METAB OLIC PANEL albumin 4.5 g/dL 3.4-5. 0 Not Available [facility] (Lab) [address] [place], [address], 10/25/2023 15:32:14 10/25/19 24 10/25/2023 COMPR EHENS SUZANNE METAB OLIC PANEL globulin 3.0 g/dL 2.6-4. 2 Not Available [facility] (Lab) [address] [place], [address], 10/25/2023 15:32:14 10/25/19 24 10/25/2023 COMPR EHENS SUZANNE METAB OLIC PANEL A/G ratio 1.5 ratio 1.0-2. 0 Not Available [facility] (Lab) [address] [facility] [place], [address], 10/25/2023 15:32:14 10/25/19 24 10/25/2023 URIC ACID SERUM uric acid 5.2 mg/dL 3.5-8. 5 Not Available [facility] (Lab) [address] [place], [address], 10/25/2023 15:32:16 03/13/19 25 XR, hip + pelvi s, unila teral No observ ation record ed. [email or web address] [facility] [place] [address], [place], [address], 03/13/2024 11:59:39 03/13/19 25 XR, femur No observ ation record ed. [email or web address] [facility] [place] [address], [address], 03/13/2024 12:02:23 03/27/19 25 03/27/2024 MRI, hip, w/o contr ast No observ ation record ed. [email or web address] [facility] [address], [place], [address], 03/27/2024 10:21:43 03/27/19 25 03/27/2024 MRI, hip, w/o contr ast No observ ation record ed. [email or web address] [facility] [address], [place], [address], 03/27/2024 09:32:35 05/29/19 25 XR, knee, 4 or more view No observ ation record ed. [email or web address] [facility] [place] [address], [place], [address], 05/28/2024 11:32:37 Result Notes None recorded. Problems Name Problem SNOMED Code Status Onset Date Resolution Date Notes Provider Name and Address Organization Details Recorded Time Testicular hypofuncti on 929225274 Active Not Available [facility] 3 03:59:10 Benign essential hypertensi on 4963322 Active Not Available [facility] 3 03:59:10 Shoulder joint pain 673733429 Active Not Available [facility] 3 03:59:10 Tear of medial meniscus of knee 667576241 Active 2021 Not Available [facility] 3 03:59:10 Tear of medial meniscus of knee 410669149 Active 2021 Not Available [facility] 3 03:59:10 Depressive disorder 35296155 Active Not Available [facility] 3 03:59:10 Chronic kidney disease stage 2 967811995 Active 2021 Not Available [facility] 3 03:59:10 Type 2 diabetes mellitus 17720891 Active Not Available [facility] 3 03:59:10 Pain of right knee joint 3953099786207 00 Active 2021 Not Available [facility] 3 03:59:10 Hyperlipid emia 34280181 Active Not Available [facility] 3 03:59:10 Gout 92833202 Active 2017 Not Available [facility] 3 03:59:10 Hearing loss 70139127 Active 2022 Not Available [facility] 3 03:59:10 Obese class II 7444487257964 05 Active 2023 Jayne Fall MD [address], [place], [address] , [facility] 4 10:41:40 Type 2 diabetes mellitus without complicati on 916154901 Active 2023 Miryam Siddharth null, [facility] 4 10:51:11 Cobalamin deficiency 123612477 Active 2023 YOANA Ruby null, [facility] 4 15:21:38 Numbness of hand 869660131 Active 2023 Jayne Fall MD [address], [place], [address] , [facility] 4 11:10:00 Paresthesi a of hand 570928210 Active 2023 Miryam Messina null, [facility] 4 16:58:10 Anemia 806996225 Active 2023 Cherrie Anaya null, [place] - [facility] 4 16:50:58 Carpal tunnel syndrome 25673755 Active 2023 Wilma Alvarado CMA null, [place] - [facility] 4 15:49:23 Low back pain 079862430 Active 2023 Wilma Alvarado CMA null, [place] [facility] 4 17:36:55 Pain in right hip joint 4940089300967 02 Active 2024 Jayne Fall MD [address], [place], [address] , [facility] 5 12:13:57 Pain of left hip joint 2949789738808 00 Active 2024 Jayne Fall MD [address], [place], [address] , [facility] 5 12:18:08 Disorder of prostate 26670353 Active 2024 Jayne Fall MD [address], [facility] [address], [place], [address] , [facility] [place] [facility] 5 12:20:29 Pain in femur 002180728 Active 2024 Diptidaryn Ngo null, [facility] 5 10:55:40 Pain in femur 575025355 Active [address] [facility], [facility] 5 10:56:00 Trochanter ic bursitis of left hip 0903360023443 03 Active 2024 Dipti Ngo null, [facility] [place] [facility] 5 10:56:30 Hip pain 71356162 Active 2024 YOANA Colon null, [facility] 5 09:41:48 Notes:Some problems listed i n Document: #[id number] could not be added to this patient's chart. Please review this document and add these problems to the patient's chart manually as needed. Problem Notes None recorded. Procedures Surgical History Date Name Laterality Status Provider Name and Address Organization Details Recorded Time 4 Chronic care management services completed Liseth Hameed [facility] 12/04/2023 10:21:06 4 Carpal tunnel completed Karlie Blanco CNA [facility] 03/13/2024 10:34:00 4 procedure on elbow completed Karlie Blanco CNA [facility] 03/13/2024 10:34:23 4 Chronic care management services completed Keiko Koroma RN [facility] 08/28/2023 15:08:29 4 Chronic care management services completed Keiko Koroma RN [facility] 08/01/2023 15:13:20 Medicare Wellness CPT Code, subsequent completed Melinda Morales RN [facility] [employer] 07/10/2023 10:55:41 Imaging Results Imaging Date Name Status LastModified by Organiz ation Details LastModified Time 03/13/2024 XR, hip + pelvis, unilateral completed [email or web address] [facility] [place] [address], [place], [address], 03/13/2024 11:59:39 03/13/2024 XR, femur completed [email or web address] [facility] [place] [address], [place], [address], 03/13/2024 12:02:23 03/27/2024 MRI, hip, w/o contrast completed [email or web address] [facility] [address], [place], [address], 03/27/2024 10:21:43 03/27/2024 MRI, hip, w/o contrast completed [email or web address] [facility] [address], [place], [address], 03/27/2024 09:32:35 05/28/2024 XR, knee, 4 or more view completed [email or web address] [facility] [place] [address], [place], [address], 05/28/2024 11:32:37 Procedure Notes None recorded. Medical Equipment None Reported. Allergies Allergen ID Allergen Name Allergen Category Reaction Reaction Severity Criticality Documentation Date Start Date Code Code System Note Provider Name and Address Organization Details Recorded Time 56354 Product containin g penicilli n (product) medicatio n hives moderate high 05/03/2022 93668 8001 SNOMED aller gic to all cilli ns Keiko Koroma RN null, [place] [facility] 15:00:15 50206 amoxicill in medicatio n rash moderate high 05/03/2022 723 RxNorm Keiko Koroma RN null, [place] [facility] 4 14:59:55 Medications Name Sig Start Date Stop Date Status Note LastModified by Organization Details LastModified Time quetiapine 25 mg tablet TAKE 2 TABLETS BY MOUTH EVERY MORNING AND 1 TABLET EVERY NIGHT AT BEDTIME active Not Available [...] mg-acetamin ophen 325 mg tablet TAKE 1 TABLET BY MOUTH EVERY 6 HOURS NEEDED FOR KNEE PAIN active Not Available Not Available No t Available bupivacaine HCl 0.5 % (5 mg/mL) injection [...] 20 mg by injection route. 05/28 completed [facility]: 0003- 0494- 20 Not Available Not Available [...] ML IN THE MUSCLE EVERY 2 WEEKS active Not Available Not Available No t Available oxycodone-a cetaminophe n 7.5 mg-325 mg tablet TK 1 T PO TID FOR 14 DAYS PRN 07/21 completed Not Available Not Available Not Available [place] 7.5 mg-325 mg tablet one every six [...] Updated DateTime 4 177.8 cm 35.2 kg/m2 486851. 13 g 77 /min 97.7 [degF] 99 % 99 % 130 mm[Hg] 82 mm[Hg] Krysta Parks [facility] WITH [facility] [employer] [facility] 4 11:16:26 Date Recorded Body height Body mass index (BMI) Body weight Body temperature Heart rate Oxygen saturation Oxygen saturation in Arterial blood by Pulse oximetry Systolic blood pressure Diastolic blood pressure Provider Name and Address Organization Details Last Updated DateTime 5 177.8 cm 36.2 kg/m2 426890. 28 g 98.1 [degF] 71 /min 97 % 97 % 122 mm[Hg] 74 mm[Hg] Ese Villa MA [facility] [facility] 5 12:09:30 Date Recorded Body height Body mass index (BMI) Body weight Provider Name and Address Organization Details Last Updated DateTime 03/13/2024 177.8 cm 35.9 kg/m2 072137.09 g Karlie Blanco CNA [facility] [employer] [facility] 03/13/2024 10:31:25 Date Recorded Body height Body mass index (BMI) Body weight Pain severity - 0-10 verbal numeric rating [Score] - Reported Provider Name and Address Organization Details Last Updated DateTime 04/02/2024 177.8 cm 35.9 kg/m2 679893.09 g 3 Chelly Edge [facility] [employer] [facility] 04/02/2024 09:41:08 Date Recorded Body height Body mass index (BMI) Body weight Pain severity - 0-10 verbal numeric rating [Score] - Reported Provider Name and Address Organization Details Last Updated DateTime 05/28/2024 177.8 cm 35.9 kg/m2 062708.09 g 4 Chelly Edge [facility] [employer] [facility] 05/28/2024 10:23:10 Social History Question Answer Notes LastModified by Organization Details LastModified Time Tobacco Smoking Status Never Smoker Not Available [facility] 05/03/2022 05:54:07 Do You Have An Advance Directive? No MIGRATION.030 [id number] Information not available 05/03/2022 What Is Your Level Of Alcohol Consumption? None MIGRATION.030 [id number] Information not available 05/03/2022 What Is Your Level Of Caffeine Consumption? Moderate 1 Mountain Dew Daily Information not available 08/01/2023 In The 14 Days Before Symptom Onset, Have You Had Close Contact With A Laboratory-conf irmed COVID-19 While That Case Was Ill? No MIGRATION.030 [id number] Information not available 05/03/2022 In The 14 Days Before Symptom Onset, Have You Had Close Contact With A Person Who Is Under Investigation For COVID-19 While That Person Was Ill? No MIGRATION.030 [id number] Information not available 05/03/2022 Are You Currently Employed? No Pt On Disability Information not available 08/01/2023 What Type Of Diet Are You Following? DIABETIC Information not available 08/01/2023 What Is The Highest Grade Or Level Of School You Have Completed Or The Highest Degree You Have Received? [id number] Information not available 08/01/2023 How Many Days [...] Your Family Or Social Situation? No MIGRATION.030 [id number] Information not available 05/03/2022 What Is The Fluoride Status Of Your Home? Unknown MIGRATION.300 016448 Information not available 05/03/2022 Are There Any Guns Present In Your Home? No MIGRATION.030 [id number] Information not available 05/03/2022 Where Do You Live? [place] MIGRATION.300 [id number] Information not available 05/03/2022 Presence Of Domestic Violence No Information not available 08/01/2023 Guns Present In The Home? No [email or web address] Information not available 07/10/2023 Are You Able To Care For Yourself? Yes [email or web address] Information not available 07/10/2023 Are You Blind Or Do Yo Have Difficulty Seeing? No [email or web address] Information not available 07/10/2023 Are You Deaf Or Do You Have Serious Difficulty Hearing? Yes Has Hearing Aids [email or web address] Information not available 07/10/2023 General Stress Level? High Information not available 08/01/2023 Live Alone Of With Others? With Others [email or web address] Information not available 07/10/2023 Do You Have A Medical Power Of Gameroom Technician? No MIGRATION.0301 [id number] Information not available 05/03/2022 What Was The Date Of Your Most Recent Tobacco Screening? 07/10/2023 [email or web address] Information not available 07/10/2023 How Many Children Do You Have? 4 Information not available 08/01/2023 Do You Have Any Pets? Yes MIGRATION.0301 [id number] Information not available 05/03/2022 What Is Your Relationship Status? MIGRATION.0301 193854 Information not available 05/03/2022 Do You Use Your Seat Belt Or Car Seat Routinely? Yes [email or web address] Information not available 07/10/2023 Are You Sexually Active? Yes Information not available 08/01/2023 Do You Have Smoke And Carbon Monoxide Detectors In Your Home? Yes MIGRATION.0301 [id number] Information not available 05/03/2022 Are You Passively Exposed To Smoke? No MIGRATION.0301 [id number] Information not available 05/03/2022 Are There Any Smokers In Your House? No MIGRATION.0301 [id number] Information not available 05/03/2022 What Types Of Sporting Activities Do You Participate In? None Information not available 08/01/2023 Do You Feel Stressed (tense, Restless, Nervous, Or Anxious, Or Unable To Sleep At Night)? [id number] Information not available 08/01/2023 Have You Recently Traveled Abroad? No MIGRATION.0301 [id number] Information not available 05/03/2022 Do You Have Any Dietary Restrictions? No MIGRATION.0301 [id number] Information not available 05/03/2022 Sex: Male Functional Status Question Answer Note LastModified by Organization D etails LastModified Time What is your exercise level? Moderate Information not available 08/01/2023 Mental Status None recorded. Family History Relationship Description Onset Age of this Age Resolved Age Notes LastModified by Organization Details LastModified Time Father Family history of malignant neoplasm [email or web address].198 [id number] Not available 05/03/2022 05:54:21 Father Hypertensive disorder MIGRATION.339 [id number] Not available 05/03/2022 05:54:21 Mother Family history of stroke MIGRATION.115 [id number] Not available 05/03/2022 05:54:21 Brother Diabetes mellitus MIGRATION.466 [id number] Not available 05/03/2022 05:54:21 Brother Kidney disease MIGRATION.434 [id number] Not available 05/03/2022 05:54:21 Father Diabetes mellitus [...] ARTERY DISEASE (CAD) N ADDICTION CONCERNS N Impotence N ENDOMETRIOSIS N USE OF BLOOD THINNERS N SKIN [...] APNEA N CHICKENPOX N INFECTIOUS DISEASE N PROSTATE N HEART ARRHYTHMIA N INSOMNIA N HIGH CHOLESTEROL / HYPERLIPIDEMIA Y EYE PROBLEMS N HYPERTHYROIDISM N EDEMA N CHRONIC PAIN SYNDROME N HYPOTHYROIDISM N CONSTIPATION N CAROTID BLOCKAGE N BACK / NECK PROBLEMS N HAVE YOU BEEN HOSPITALIZED OR SEEN IN TH E ER IN THE PAST YEAR ? Y ATHEROSCLEROSIS N BREAST PROBLEMS N DIALYSIS N ECZEMA N OSTEOPOROSIS N ARTHRITIS N NO SIGNIFICANT PAST MEDICAL HISTORY N APPENDICITIS N DIABETES, TYPE Y BAD TEETH N ENT N HEARTBURN / REFLUX N AUTISM SPECTRUM DISORDER (ASD) N HEPATITIS / LIVER DISEASE N GOUT Y SLEEP DISORDER N ALZHEIMER'S DISEASE N Brain Problems N DEMENTIA N HERPES N SEIZURES/EPILEPSY N HEADACHES/MIGRAINES N VASCULAR DISEASE N PACEMAKER N Blood Disorder N DIZZINESS N HEART DISEASE/HEART PROBLEMS N KIDNEY DISEASE Y MULTIPLE SCLEROSIS N CANCER: SPECIFY N CARDIAC ARRHYTHMIA N ATRIAL FIBRILLATION N Gall Stones N PULMONARY EMBOLISM N AUTOIMMUNE DISEASE N Immunizations Vaccine Type Date Status Note Provider Nam e and Address Organization Details Recorded Time SARS-COV-2 (COVID-19) vaccine, UNSPECIFIED 1 completed Not Available [facility] 03/01/2023 03:59:12 SARS-COV-2 (COVID-19) vaccine, UNSPECIFIED 1 completed Not Available [facility] 03/01/2023 03:59:12 influenza, unspecified formulation 7 completed Not Available [facility] 03/01/2023 03:59:12 Influenza, split virus, trivalent, preservative 3 completed Not Available [facility] 03/01/2023 03:59:12 Influenza, split virus, quadrivalent, PF 1 completed Not Available [facility] 03/01/2023 03:59:12 Influenza, split virus, quadrivalent, PF 2 completed Not Available [facility] 03/01/2023 03:59:12 Influenza, high-dose, trivalent, PF 4 completed Not Available [facility] 03/01/2023 03:59:12 Past Encounters Encounter ID Performer Location Encounter Start Date Encounter Closed Date Diagnosis/Indication Diagnosis SNOMED-CT Code Diagnosis ICD10 Code Diagnosis Note [id number] [facility] [address] [address] 07/21/2020 00:00:00 07/21/2020 11:47:30 [id number] [facility] [address] [address] 11/17/2020 00:00:00 11/17/2020 12:04:57 [id number] [facility] Internal Med [facility] [address] [address] 04/25/2021 00:00:00 04/25/2021 16:51:43 [id number] [facility] [address] [address] 08/22/2021 00:00:00 08/22/2021 17:18:54 [id number] [facility] [address] [place] [address] 01/12/2022 00:00:00 01/12/2022 11:29:57 [id number] [facility] [place] [facility] [address] [place] [address] 01/23/2022 00:00:00 01/23/2022 10:41:52 [id number] [facility] [address] [address] 02/22/2022 00:00:00 02/22/2022 11:23:33 [id number] [facility] [place] [address] [place] [address] 03/02/2022 00:00:00 03/02/2022 09:13:10 [id number] Jayne Fall MD [facility] [address] [address] 06/21/2022 10:40:48 06/21/2022 11:07:06 Benign essential hypertension 8153707 I10 Hyperlipidemia 41529620 E78.5 Type 2 gabbie betes mellitus 08094421 E11.9 Gout 71186541 M10.9 [id number] Jayne Fall MD [facility] [address] [address] 10/18/2022 10:37:28 10/18/2022 11:39:09 Benign essential hypertension 7585046 I10 Type 2 gabbie betes mellitus 09453843 E11.9 Hyperlipidemia 10101707 E78.5 Depressive disorder 7854 9007 F32.9 Chronic ki dney disease stage 2 494398399 N18.2 [id number] Jayne Fall MD [facility] Internal Med [facility] [address] [address] 02/21/2023 10:26:33 02/21/2023 11:00:43 Benign essential hypertension 9562325 I10 Chronic ki dney disease stage 2 021934042 N18.2 Type 2 gabbie betes mellitus 77166503 E11.9 Hyperlipidemia 78272885 E78.5 Obese class I 2649136894 05432 E66.9 [id number] Jayne Fall MD [facility] Internal Med [facility] [address] [address] 06/27/2023 10:29:55 06/27/2023 10:53:46 Benign essential hypertension 5376029 I10 Chronic ki dney disease stage 2 481236594 N18.2 Type 2 gabbie betes mellitus 10080703 E11.9 Hyperlipidemia 51365375 E78.5 Obese class II 029845370 1 01602 E66.9 [id number] Jayne Fall MD [facility] Internal [address], [place] [address] 07/10/2023 10:46:50 07/10/2023 11:18:33 Adult health examination 303877240 Z00.00 Screening for disorder 225164803 Z13.9 Numbness of hand 1315719 04 R20.0 [id number] Jayne Fall MD [facility] Internal Med [facility] [address] [address] 07/27/2023 18:27:35 08/30/2023 11:12:43 Anemia 127970469 D51.9 Pt reports stable w/ no issues Depressive disorder 7658 9007 F32.9 Pt states feeling good and has no issues at this time Chronic ki dney disease stage 2 447182012 N18.2 doing well, taking meds Benign ess ential hypertension 2628583 I10 BP baseline, taking meds, doing well, Takes every couple days or so [id number] Jayne Fall MD [facility] Internal Med [place] [address] [address] 08/28/2023 14:50:36 08/30/2023 11:57:14 Benign essential hypertension 5911080 I10 Anemia 533361774 D51.9 Chronic ki dney disease stage 2 567071831 N18.2 Depressive disorder 3548 9007 F32.9 [id number] Liseth Hameed [facility] Internal Med [facility] [address] [address] 10/02/2023 15:29:27 12/10/2023 09:45:45 Anemia 313507562 D51.9 Benign ess ential hypertension 2993225 I10 Chronic ki dney disease stage 2 152317228 N18.2 Depressive disorder 3548 9007 F32.9 [id number] Jayne Fall MD [facility] Internal Med [facility] [address] [address] 10/24/2023 11:05:39 10/24/2023 11:42:37 Benign essential hypertension 5915781 I10 Hyperlipidemia 51639934 E78.5 Type 2 gabbie betes mellitus 35072547 E11.9 Gout 57487804 M10.9 Obese class II 044035230 1 77425 E66.9 [id number] Jayne Fall MD [facility] Internal Med [facility] [address] [address] 03/12/2024 11:52:44 03/12/2024 12:22:51 Benign essential hypertension 5273040 I10 Hyperlipidemia 91422475 E78.5 Type 2 gabbie betes mellitus 77937538 E11.9 Obese class II 334063592 1 39882 E66.9 Pain of le ft hip joint 4452996185 94110 M25.552 Disorder of prostate 302 57245 N42.9 [id number] REYES Viveros [facility] [place] [address] [place] [address] 03/13/2024 10:11:51 03/13/2024 11:34:57 Pain of left hip joint 9450861885 44093 M25.552 Pain in femur 891770904 M79.659 Trochanter ic bursitis of left hip 7966993802 07389 M70.62 Pain in ri ght hip joint 9308244902 04636 M25.612 [id number] Holger Baker MD [facility] [place] [address] [place] [address] 04/02/2024 09:38:29 04/02/2024 09:50:38 Hip pain 92945037 M25.541 [id number] Maki Preston PA-C [facility] 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 Tear of me dial meniscus of knee 013331654 S83.241D Goals Section Goal Description Progress Status Start Date LastModified by Organization Details LastModified Time Blood Pressure Maintains blood pressure goal as defined by care team [facility] active 2023 Keiko Koroma RN Information not available 10/02/2023 19:44:13 Medication Regimen Follows medication regimen as per care team recommendation (s) [facility] active 2023 Keiko Koroma RN Information not available 10/02/2023 19:42:33 Family and Social Support Reports family and/or social support needs are [facility] Keiko Koroma RN Information not available 10/02/2023 19:43:17 Recreation al Activities Participates in recreational activities that he enjoys to help reduce anxiety and depression [facility] 2023 Keiko Koroma RN Information not available 10/02/2023 19:45:49 Lab Testing Completes lab testing as per care team recommendation (s) [facility] active 2023 Keiko Koroma RN Information not available 08/01/2023 18:45:50 Lab Values Patient lab values are at baseline [facility] active 2023 Keiko Koroma RN Information not available 08/01/2023 18:45:50 Chronic Disease Symptom Management Reports no new or worsening [facility] Keiko Koroma RN Information not available 08/01/2023 18:45:50 Medication Regimen Follows medication regimen as per care team recommendation (s) [facility] active 2023 Keiko Koroma RN Information not available 08/01/2023 18:45:50 Heart Healthy Diet Maintain a low sodium and low fat diet, restricting artificial sweetener use [facility] active 2023 Keiko Koroma RN Information not available 08/01/2023 18:45:31 Exercise Regularly Follows a regular exercise regimen or instructed exercise plan as per care team recommendation (s) [facility] active 2023 Keiko Koroma RN Information not available 08/01/2023 18:46:11 Mental Health Patient maintains baseline [facility] Keiko Koroma RN Information not available 08/01/2023 18:48:35 Adequate Sleep Achieves adequate, well-rested sleep with minimal disruption [facility]23 Keiko Koroma RN Information not available 08/28/2023 18:47:56 Exercise Regularly Follows a regular exercise regimen or instructed exercise plan as per care team recommendation (s) [facility] active 2023 Keiko Koroma RN Information not available 08/28/2023 18:47:57 Quality of Life Reports satisfaction with quality of life [facility] 2023 Keiko Koroma RN Information not available 08/28/2023 18:47:57 Activities of Daily Living Performs activities of daily living independently or with minimal assistance [facility] 2023 Keiko Koroma RN Information not available 08/28/2023 18:47:57 Follow-up Appointmen t(s) Attends referral and/or follow-up appointment(s) as per care team recommendation (s) [facility] active 2023 Keiko Koroma RN Information not available 08/28/2023 18:47:57 Adequate Housing Conditions Maintains adequate housing with satisfactory living conditions [facility] active 2023 Keiko Koroma RN Information not available 08/28/2023 18:47:57 Food Security Reports ability to access and obtain foods to meet nutritional needs [facility] 2023 Keiko Koroma RN Information not available 08/28/2023 18:47:57 Vaccinatio n Status Remains up to date on vaccines as per care team recommendation (s) [facility] active 2023 Keiko Koroma RN Information not available 08/28/2023 18:47:57 Family and Social Support Reports family and/or social support needs are met [facility] active 2023 Keiko Koroma RN Information not available 08/28/2023 18:47:57 Home/Envir onment Safety Reports having a safe environment that promotes independence and prevents injury [facility] 2023 Keiko Koroma RN Information not available 08/28/2023 18:47:57 Diet Adherence Follows prescribed or recommended diet [facility] active 2023 Keiko Koroma RN Information not available 08/28/2023 18:47:57 Knowledge of Disease or Condition Demonstrates understanding of disease(s) or condition(s) [facility] active 2023 Keiko Koroma RN Information not available 08/28/2023 18:47:58 Fall Safety Reports no recent falls and/or fall injuries [facility] 2023 Keiko Koroma RN Information not available 08/28/2023 18:47:58 Effective Pain Management Reports or exhibits adequate pain relief as determined by appropriate pain scale [facility] active 2023 Keiko Koroma RN Information not available 08/28/2023 18:47:58 Financial Stability Reports financial status and/or income meets needs [facility] active 2023 eKiko Koroma RN Information not available 08/28/2023 18:47:58 Activity Tolerance Reports and/or exhibits normal or improved activity tolerance [facility] 2023 Keiko Koroma RN Information not available 08/28/2023 18:47:58 Symptom Management Demonstrates ability to manage and/or control symptoms [facility] active 2023 Keiko Koroma RN Information not available 08/28/2023 18:47:58 Pain Management Plan Reports satisfaction with current pain management plan (e.g., medication and non-medication pain relief interventions) [facility] Keiko Koroma RN Information not available 08/28/2023 18:47:59 Lab Testing Completes lab testing as per care team recommendation (s) [facility] active 2023 Keiko Koroma RN Information not available 08/28/2023 18:47:59 Smoking Cessation Quits smoking [facility] Keiko Koroma RN Information not available 08/28/2023 18:47:59 Exacerbati on Care Reduction Reports a reduction in the number of occurrences to seek care for chronic disease exacerbation [facility] 2023 Keiko Koroma RN Information not available 08/28/2023 18:47:59 Fluid Balance Management Exhibits no signs or symptoms related to fluid imbalance [facility] 2023 Keiko Koroma RN Information not available 08/28/2023 18:47:59 Blood Pressure Maintains blood pressure goal as defined by care team [facility] active 2023 Keiko Koroma RN Information not available 08/28/2023 18:47:59 Effective Coping Manages life events with effective coping methods [facility] active 2023 Keiko Koroma RN Information not available 08/28/2023 18:47:59 Blood Glucose Maintains blood glucose within target range [facility] 2023 Keiko Koroma RN Information not available 08/28/2023 18:48:00 Decreased Alcohol Consumptio n Reports decreased alcohol consumption as per care team recommendation (s) [facility] active 2023 Keiko Koroma RN Information not available 08/28/2023 18:48:00 Diagnostic Testing Completes diagnostic testing as per care team recommendation (s) Bertram [...] RN Information not available 08/28/2023 18:48:00 Weight Tj saldaña Exhibits stable weight with normal fluctuation [facility] [...] Martell Member ID Guarantor Name 10/24/2023 1 [facility] (MEDICARE REPLACEMENT/AD VANTAGE - HMO) [id number] Tony Lainez [id number] Tony Lainez 03/12/2024 1 [facility] (MEDICARE REPLACEMENT/AD VANTAGE - HMO) [id number] Tony Lainez [id number] Tony Lainez 03/13/2024 1 [facility] (MEDICARE REPLACEMENT/AD VANTAGE - HMO) [id number] Tony Lainez [id number] Tony Lainez 03/13/2024 2 [place] OR [place]ICARE REPLACEMENT PRIMARY) Tony Lainez [id number] Tony Lainez 04/02/2024 1 [facility] (MEDICARE REPLACEMENT/AD VANTAGE - HMO) [id number] Tony Campbellth [id number] Tony Ohdith 04/02/2024 2 [place] OR [place]IC[place] REPLACEMENT PRIMARY) Tony Campbellth [id number] Tony Ohdith 05/28/2024 1 [facility] (MEDICARE REPLACEMENT/AD VANTAGE - HMO) [id number] Tony Campbellth [id number] Tony Ohdith 05/28/2024 2 [place] WHEN [place] OR MEDICARE REPLACEMENT PRIMARY) Tony Campbellth [id number] Tnoy Lainez Notes Date Note Type Note Provider [...] and Systemic Symptoms:none Medication Reconciliation: by patient. [id number]: MRI of the lumbar spine showed significant [...] non healing lesions. [facility]8 Calculated MB mg%. Average blood [...] offered to be evaluated and instructed by advertising representative on weight loss diet. Active Medication ListTestosterone [...] Adverse Drug Reactions ReviewedAmoxicillin Rash Vaccination and [id number] Asiiqnhwr1048-74 Covid Expreem Surgical Vwswrpw5493-52 Lt. CTS and Cubital Jpduze8797-57 L5 Interbody Fusion Preventative Testing( ) 07/02/2023 [...] and Type II Diabetes Jayne Fall MD [address] [address], [place], [address], [facility] [employer] 10/24/2023 11:40:09 5 text/html Patient Name: Tony Pride Of Service: Sunday ( 03.12.2024 ): 1965 [...] Systemic Symptoms:none Medication Reconciliation: from medication list. [id number]: MRI of the lumbar spine showed significant [...] offered to be evaluated and instructed by advertising representative on weight loss diet. Active Medication ListTestosterone [...] Vaccination and Immunization(X) 2021- INFLUENZA(X) 2020- COVID Th[employer] Solo Surgical Zogtjke7733-92 Lt. CTS and Cubital Qvlgec9168-63 L5 Interbody Fusion Preventative Testing( ) 01/09/2024 [...] MG/DLCALCIUM 9.7 8.4-10.2 MG/DL Jayne Fall MD [address] [place] [address], [place], [address], [place] [facility] [employer] 03/12/2024 12:21:25 5 text/html the patient is [...] detail today with the patient. REYES Viveros [address] [place] [address], [facility] [address], [place], [address], [place] [facility] [employer] 03/13/2024 12:03:14
--- OUTSIDE RECORDS SUMMARY | 2024-06-21 13:33 | XMS_ITS ---
Author Organization [facility] Office Address [address] [facility] [address] [facility] [address] [place] [address] Care Team Providers Care Rose Grader Name Role Phone Danyel Tello Unavailable [phone] MEDICATIONS Medication SIG (Take, Route, Frequency, Duration) [...] Active Encounters Encounter Location Date Provider Diagnosis [facility] [address] [facility] [address] [place] [address] 02/06/2024 Danyel Tello Chronic kidney disea se, [...] Name:Danyel Tello , 08/20/2024 02:45:00 PM, [address] [facility], [facility] [address], [place], [address], Progress Notes * GUANACO ECHEVARRIADOB: [birth year] (59 yo M)Acc No.[id number]:02/06/2024 Progress Notes Patient: GUANACO ECHEVARRIA Provider: MD SHAHLA, CarolinC.P, F.A.S.N. :1965 Age:59 Y Sex:Male Date:02/06/2024 Address:[address] [place] [address] Subjective: * Chief Complaints: * * Medical [...] Treatment: * Billing Information: * Visit Code: [id number] Office Visit, Est Pt., Level 4. * Procedure Codes: * Sign off status: Pending * Provider: MD SHAHLA, Lukasz.[place].C.P, F.A.S.N. Date: 02/06/2024
--- OUTSIDE RECORDS SUMMARY | 2024-06-21 13:33 | XMS_ITS | Patient Health Record ---
Author Organization [facility] [place] Address [address] [place] [address] Care Team Providers Care Tank Storage Supervisor Name Role Phone Jaime Fall MD Primary Care Provider Maninder Al Unavailable [phone] Ethan Thena Unavailable [phone] Migration, Provider Unavailable Unavailable Allergies Allergen (clinical drug ingredient) Drug/Non Drug Allergy documented on EMR Reaction Allergy Type Onset Date Status amoxicillin Amoxicillin Unknown Drug Allergy 06/20/2023 Ac tive Substance with penicillin structure and antibacterial mechanism of action (substance) Penicillins Unknown Drug Allergy 06/20/2023 Active Reason For Referral No Information Medications Medication SIG (Take, Route, Frequency, Duration) Notes Start Date End Date Status Atorvastatin Calcium 20 MG Oral 06/20/2023 Active Farxiga 5 MG Oral 06/20/2023 Active Allopurinol 100 MG Oral 06/20/2023 Active Calcitriol 0.25 MCG Oral 06/20/2023 Active Ergocalciferol 1.25 MG (33318 UT) Oral 06/20/2023 Active ACCU-CHEK GUIDE TEST STRIPS *Reorder from [employer] for eRx and Interaction Alerts* 06/20/2023 Active Divalproex Sodium 250 MG TAKE 1 TABLET BY MOUTH TWICE DAILY for 90 Not-Taking metFORMIN HCl 1000 MG Oral 06/20/2023 Active busPIRone HCl 30 MG 1 tablet Oral Twice a day for 90 days Active amLODIPine Besylate 10 MG Oral 06/20/2023 Active QUEtiapine Fumarate 25 MG 3 tablets Oral daily for 90 days take 2 tablets it the morning and 1 tablet at bedtime Active Doxazosin Mesylate 2 MG Oral 06/20/2023 Active Propranolol HCl 40 MG 1 tablet Oral Twice a day for 90 days Active ACCU-CHEK GUIDE ME GLUCOSE METER *Reorder from [facility] for eRx and Interaction Alerts* 06/20/2023 Active Trintellix 20 MG 1 tablet Oral Once a day for 90 days Active ACCU-CHEK FASTCLIX LANCET DRUM MISCELLANEOUS *Reorder from [facility] for eRx and Interaction Alerts* 06/20/2023 Active Testosterone Cypionate 200 MG/ML Intramuscular 06/20/2023 Active Vraylar 6 mg 1 tablet Oral daily for 90 days Active Lisinopril 40 MG Oral 06/20/2023 Ac tive Immunizations Vaccine Route Administration Date Status Comme nts Influenza virus vaccine, quadrivalent (IIV4), split virus, 0.25 mL dosage Unknown 11/20/2014 Administered Influenza virus vaccine, quadrivalent (IIV4), split virus, 0.25 mL dosage Unknown 12/02/2014 Administered Influenza virus vaccine, quadrivalent (IIV4), split virus, 0.25 mL dosage Unknown 11/26/2015 Administered Influenza virus vaccine, quadrivalent (IIV4), split virus, 0.25 mL dosage Unknown 12/08/2015 Administered Influenza virus vaccine, quadrivalent (IIV4), split virus, 0.25 mL dosage Unknown 12/04/2016 Administered Influenza virus vaccine, quadrivalent (IIV4), split virus, 0.25 mL dosage Unknown 11/27/2018 Administered Influenza, high dose seasonal Unknown 11/20/2013 Admini stered Influenza, injectable, MDCK, preservative free Unknown 12/02/2019 Administered Influenza, seasonal, injecta ble, preservative free, 3 yrs and above Unknown 01/07/2013 Administered Influenza, unspecified formulation Unknown 12/03/2021 A dministered Pfizer Biontech Covid-19 Vac cine 2nd dose Unknown 05/04/2020 Administered Pfizer Biontech Covid-19 Vac cine 2nd dose Unknown 05/25/2020 Administered Pfizer [employer] Covid-19 Vac cine 2nd dose Unknown 11/30/2020 Administered Pfizer [employer]iontech Covid-19 Vac cine 2nd dose Unknown 06/09/2021 Administered Tdap Unknown 12/06/2014 Administered Zoster Unknown 09/16/2012 Administered Social History Tobacco Use: Social History Observation Description Date Details (start date - stop date) Never Smoker NA - NA Sex Assigned At : Social History Observation Description Sex Assigned At Male Tobacco Control (Standard) Question Answer Notes Tobacco use: Nonsmoker AUDIT-C (Standard) Question Answer Notes Did you have a drink containing alcohol in the p ast year? No Problems Problem Type SNOMED Code ICD Code Onset Dates Problem Status W/U Status Risk Notes Problem Bipolar disorder (49044173) Bipolar disorder, unspecified (F31.9) 4 Active confirmed Problem Generalized anxiety disorder (37976913) Generalized anxiety disorder (F41.1) 4 Active confirmed Problem Obsessive-compul sive disorder (211536123) Obsessive-compu lsive disorder, unspecified (F42.9) Active confirmed Problem Panic disorder (632196099) Panic disorder [episodic paroxysmal anxiety] without agoraphobia (F41.0) Active confirmed Problem Severe manic bipolar I disorder without psychotic features (741523) Bipolar disorder with severe scott (F31.13) Active confirmed Vital Signs Heart Rate 60 /min 06/09/2024 Height-cm 177.80 cm 06/09/2024 Blood pressure diastolic 77 mm Hg 06/09/2024 Weight-kg 113.4 kg 06/09/2024 Height 70.00 in 06/09/2024 Blood pressure systolic 115 mm Hg 06/09/2024 Weight 250 lbs 06/09/2024 BMI 35.87 kg/m2 06/09/2024 Encounters Encounter Location Date Provider Diagnosis [facility] [address] [facility] [address] [address] 09/19/2023 Maninder Collins Generalized anxiety disorder F41.1 ; Bipolar disorder, unspecified F31.9 ; Obsessive-compulsive disorder, unspecified F42.9 and Panic disorder [episodic paroxysmal anxiety] without agoraphobia F41.0 [facility] [address] [facility] [address] [address] 12/19/2023 Maninder Collins Generalized anxiety disorder F41.1 ; Bipolar disorder, unspecified F31.9 ; Obsessive-compulsive disorder, unspecified F42.9 and Panic disorder [episodic paroxysmal anxiety] without agoraphobia F41.0 [facility] [address] [facility] [address] [place] [address] 03/20/2024 Maninder Collins Generalized anxiety disorder F41.1 ; Bipolar disorder, unspecified F31.9 ; Obsessive-compulsive disorder, unspecified F42.9 and Panic disorder [episodic paroxysmal anxiety] without agoraphobia F41.0 [facility] [employer] [facility] [address] [place] [address] 06/09/2024 Maninder Collins Encounter for screening for depression Z13.31 ; Encounter for screening for cardiovascular disorders Z13.6 ; Generalized anxiety disorder F41.1 ; Bipolar disorder, unspecified F31.9 ; Obsessive-compulsive disorder, unspecified F42.9 and Panic disorder [episodic paroxysmal anxiety] without agoraphobia F41.0 [facility] [employer] [facility] [address] [facility] [address] [place] [address] 07/21/2023 Provider Migration [facility] [place] [address] [facility] [address] [place] [address] 07/22/2023 Provider Migration [facility] [employer] [place] [id number] [facility] [address] [place] [address] 12/19/2023 Manindergerardo Mercedesa [place] [address] [facility] [address] [place] [address] 04/17/2024 Maninder Collins Bipolar disorder wit h severe scott F31.13 [place] [address] [facility] [address] [place] [address] 09/20/2023 Maninder Collins Generalized anxiety disorder F41.1 and Bipolar disorder, unspecified F31.9 Assessments Encounter Date Diagnosis (ICD Code) Assessment Notes Treatment Notes Treatment Clinical Notes Section Notes 09/20/2023 Generalized anxiety disorder (ICD-10 - F41.1) 09/19/2023 Bipolar disorder, unspecified (ICD-10 - F31.9) 1. Major Depressive Disorder: - Patient reports some days with depressive symptoms but overall manageable. Plan: - Continue Trintellix 20mg daily. 2. Bipolar Disorder: - No reported manic symptoms. Plan: - Continue Vraylar 6mg daily. 3. Generalized Anxiety Disorder: - Patient reports occasional panic attacks but overall manageable. Plan: - Continue Buspirone 30mg twice a day. - Continue Propranolol 40mg twice a day. 4. Obsessive-Compu lsive Disorder: - Patient reports OCD symptoms as manageable with medication. Plan: - No changes in treatment plan. 5. Intrusive thoughts: - Patient reports improvement in intrusive thoughts. Plan: - Continue Quetiapine 25mg, two tablets in the morning and one tablet at bedtime. 6. Sleep: - Patient reports variable sleep quality but able to rest during the day if needed. Plan: - No changes in treatment plan. Follow-up: Refill prescriptions for 90-day supplies of Trintellix, Vraylar, Buspirone, Propranolol, and Quetiapine. Follow up in three months or as needed. 09/19/2023 Generalized anxiety disorder (ICD-10 - F41.1) 1. Major Depressive Disorder: - Patient reports some days with depressive symptoms but overall manageable. Plan: - Continue Trintellix 20mg daily. 2. Bipolar Disorder: - No reported manic symptoms. Plan: - Continue Vraylar 6mg daily. 3. Generalized Anxiety Disorder: - Patient reports occasional panic attacks but overall manageable. Plan: - Continue Buspirone 30mg twice a day. - Continue Propranolol 40mg twice a day. 4. Obsessive-Compu lsive Disorder: - Patient reports OCD symptoms as manageable with medication. Plan: - No changes in treatment plan. 5. Intrusive thoughts: - Patient reports improvement in intrusive thoughts. Plan: - Continue Quetiapine 25mg, two tablets in the morning and one tablet at bedtime. 6. Sleep: - Patient reports variable sleep quality but able to rest during the day if needed. Plan: - No changes in treatment plan. Follow-up: Refill prescriptions for 90-day supplies of Trintellix, Vraylar, Buspirone, Propranolol, and Quetiapine. Follow up in three months or as needed. 03/20/2024 Generalized anxiety disorder (ICD-10 - F41.1) [...] some recent stress due to a friend's hospitalization . - Currently on BuSpar 30 mg twice a day and Propranolol 40 mg twice a day. Plan: - Continue the current medication regimen. - Encourage the patient to utilize coping strategies and seek support as needed. 3. Obsessive-Compu lsive Disorder (OCD): - Patient reports significant improvement [...] - [facility] with one refill. 7. Follow-up: - Schedule a follow-up appointment in 4 months. Overall, the patient's mental health appears to be stable with the current medication regimen. Encourage the patient to report any changes in symptoms or new concerns. Continue to monitor and adjust treatment as needed. 12/19/2023 Generalized anxiety disorder (ICD-10 - F41.1) 06/09/2024 Encounter for screening for depression (ICD-10 - Z13.31) 04/17/2024 Bipolar disorder with severe scott (ICD-10 - F31.13) 09/20/2023 Bipolar disorder, unspecified (ICD-10 - F31.9) 12/19/2023 Bipolar disorder, unspecified (ICD-10 - F31.9) 03/20/2024 Bipolar disorder, unspecified (ICD-10 - F31.9) [...] some recent stress due to a friend's hospitalization . - Currently on BuSpar 30 mg twice a day and Propranolol 40 mg twice a day. Plan: - Continue the current medication regimen. - Encourage the patient to utilize coping strategies and seek support as needed. 3. Obsessive-Compu lsive Disorder (OCD): - Patient reports significant improvement [...] - All prescriptions have been sent to [facility] for a 90-day supply with one refill. 7. Follow-up: - Schedule a follow-up appointment in 4 months. Overall, the patient's mental health appears to be stable with the current medication regimen. Encourage the patient to report any changes in symptoms or new concerns. Continue to monitor and adjust treatment as needed. 06/09/2024 Encounter for screening for cardiovascular disorders (ICD-10 - Z13.6) 09/19/2023 Obsessive-compuls kera disorder, unspecified (ICD-10 - F42.9) 1. Major Depressive Disorder: - Patient reports some days with depressive symptoms but overall manageable. Plan: - Continue Trintellix 20mg daily. 2. Bipolar Disorder: - No reported manic symptoms. Plan: - Continue Vraylar 6mg daily. 3. Generalized Anxiety Disorder: - Patient reports occasional panic attacks but overall manageable. Plan: - Continue Buspirone 30mg twice a day. - Continue Propranolol 40mg twice a day. 4. Obsessive-Compu lsive Disorder: - Patient reports OCD symptoms as manageable with medication. Plan: - No changes in treatment plan. 5. Intrusive thoughts: - Patient reports improvement in intrusive thoughts. Plan: - Continue Quetiapine 25mg, two tablets in the morning and one tablet at bedtime. 6. Sleep: - Patient reports variable sleep quality but able to rest during the day if needed. Plan: - No changes in treatment plan. Follow-up: Refill prescriptions for 90-day supplies of Trintellix, Vraylar, Buspirone, Propranolol, and Quetiapine. Follow up in three months or as needed. 09/19/2023 Panic disorder [episodic paroxysmal anxiety] without agoraphobia (ICD-10 - F41.0) 1. Major Depressive Disorder: - Patient reports some days with depressive symptoms but overall manageable. Plan: - Continue Trintellix 20mg daily. 2. Bipolar Disorder: - No reported manic symptoms. Plan: - Continue Vraylar 6mg daily. 3. Generalized Anxiety Disorder: - Patient reports occasional panic attacks but overall manageable. Plan: - Continue Buspirone 30mg twice a day. - Continue Propranolol 40mg twice a day. 4. Obsessive-Compu lsive Disorder: - Patient reports OCD symptoms as manageable with medication. Plan: - No changes in treatment plan. 5. Intrusive thoughts: - Patient reports improvement in intrusive thoughts. Plan: - Continue Quetiapine 25mg, two tablets in the morning and one tablet at bedtime. 6. Sleep: - Patient reports variable sleep quality but able to rest during the day if needed. Plan: - No changes in treatment plan. Follow-up: Refill prescriptions for 90-day supplies of Trintellix, Vraylar, Buspirone, Propranolol, and Quetiapine. Follow up in three months or as needed. 12/19/2023 Obsessive-compuls kera disorder, unspecified (ICD-10 - F42.9) stable 03/20/2024 Obsessive-compuls kera disorder, unspecified (ICD-10 - F42.9) stable 1. [...] some recent stress due to a friend's hospitalization . - Currently on BuSpar 30 mg twice a day and Propranolol 40 mg twice a day. Plan: - Continue the current medication regimen. - Encourage the patient to utilize coping strategies and seek support as needed. 3. Obsessive-Compu lsive Disorder (OCD): - Patient reports significant improvement [...] - All prescriptions have been sent to [facility] for a 90-day supply with one refill. 7. Follow-up: - Schedule a follow-up appointment in 4 months. Overall, the patient's mental health appears to be stable with the current medication regimen. Encourage the patient to report any changes in symptoms or new concerns. Continue to monitor and adjust treatment as needed. 06/09/2024 Generalized anxiety disorder (ICD-10 - F41.1) 06/09/2024 Bipolar disorder, unspecified (ICD-10 - F31.9) 03/20/2024 Panic disorder [episodic paroxysmal anxiety] without [...] some recent stress due to a friend's hospitalization . - Currently on BuSpar 30 mg twice a day and Propranolol 40 mg twice a day. Plan: - Continue the current medication regimen. - Encourage the patient to utilize coping strategies and seek support as needed. 3. Obsessive-Compu lsive Disorder (OCD): - Patient reports significant improvement [...] - All prescriptions have been sent to [facility] for a 90-day supply with one refill. 7. Follow-up: - Schedule a follow-up appointment in 4 months. Overall, the patient's mental health appears to be stable with the current medication regimen. Encourage the patient to report any changes in symptoms or new concerns. Continue to monitor and adjust treatment as needed. 12/19/2023 Panic disorder [episodic paroxysmal anxiety] without agoraphobia (ICD-10 - F41.0) stable 06/09/2024 Obsessive-compuls kera disorder, unspecified (ICD-10 - F42.9) stable 06/09/2024 Panic disorder [episodic paroxysmal anxiety] without agoraphobia (ICD-10 - F41.0) stable 06/09/2024 Joaquin Guanaco Lainez, a patient with bipolar disorder, OCD, and anxiety, presents for follow-up after a recent manic episode in April, reporting improved mood stability and symptom management. Bipolar Disorder Assessment: Patient experienced a manic episode in April, characterized by insomnia and increased spending. Short-term use of Depakote 250 mg twice daily for a few days helped stabilize mood. Currently, patient reports feeling pretty good with no current manic or depressive symptoms. Continuing maintenance therapy with Vraylar 6 mg daily and quetiapine 50 mg in the morning and 75 mg at bedtime. Plan: - Continue Vraylar 6 mg PO daily - Continue quetiapine 50 mg PO in the morning and 75 mg PO at bedtime - Maintain Depakote prescription for potential future manic episodes - Follow up in 3 months Anxiety Disorder Assessment: Patient reports anxiety is doing pretty good with current medication regimen. Continuing BuSpar 30 mg twice daily and propranolol 40 mg twice daily for anxiety management. Plan: - Continue BuSpar 30 mg PO twice daily - Continue propranolol 40 mg PO twice daily Obsessive-Compul sive Disorder (OCD) Assessment: Patient reports OCD symptoms have been really good recently, indicating effective symptom management with current treatment plan. Plan: - Continue current medication regimen - Monitor for any changes in OCD symptoms Depression Assessment: Patient denies current depressive symptoms. Continuing Trintellix 20 mg daily for mood stabilization. Plan: - Continue Trintellix 20 mg PO daily the note is transcribed using speech recognition software. It is a reflection of a visit with the patient. It might have some inaccuracy, including medication names and transcribing errors, though efforts have been made to correct them. Plan Of Treatment Next Appt Details Provider Name:Maninder aguayo, 09/08/2024 09:45:00 AM, [facility] [facility] [address] [facility] [address], [place], [address], Insurance Providers Payer Name Payer Address Payer Phone Subscriber Number Group Number Insured Name Patient Relationship to Insured Coverage Start Date Coverage End Date [facility] Replacement/ [employer]vant[employer] - [employer] [address] [address] [place] [address] [id number] GUANACO LAINEZ Self - patient is the insured Medicaid-Dc Medicaid [address] [address] [place] [address] [id number] SWATHIGUANACO KINGSTON Self - patient is the insured Medical (General) History Medical History History ICD Code Problems: Benign essential hypertension Bipolar disorder Chronic kidney disease stage 3 Generalized anxiety disorder Gout Hyperlipidemia Intrusive thoughts Long-term current use of drug therapy Neuroleptic-induced tardive dyskinesia Obsessive-compulsive disorder Panic disorder without agoraphobia Shoulder joint pain Testicular hypofunction Type 2 diabetes mellitus , Imported from [employer]: Th e patient has had multiple encounters with various healthcare providers since their last visit to their primary physician. 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 On 03/12/2024, Jaime Fall MD, diagnosed the patient with benign essential hypertension, prostate disorder, hyperlipidemia, class II obesity, left hip joint pain, and type 2 diabetes mellitus. REYES Viveros, saw the patient on 03/13/2024 for pain in the femur, right hip joint, left hip joint, and trochanteric bursitis of the left hip. On 04/02/2024, Holger Baker MD, treated the patient for hip pain. The patient was hospitalized on 02/14/2024 at [facility], where Marlene Shah NP, treated them for low back pain.
--- OUTSIDE RECORDS SUMMARY | 2024-06-21 13:34 | XMS_ITS ---
Author Organization [facility] Address [address] [facility] [address] [facility] [address] [place] [address] Care Team Providers Care Senior Reservations Agent Name Role Phone Danyel Tello Unavailable [phone] MEDICATIONS Medication SIG (Take, Route, Frequency, Duration) Notes Start Date End Date Status Calcitriol 0.25 MCG 1 capsule Orally Onc e a day for 90 day(s) 11/01/2022 11/02/2024 Active Ergocalciferol 1.25 MG (11826 UT) 1 capsule Orally Once a week for 90 day(s) 02/06/2024 11/02/2024 Active Doxazosin Mesylate 2 MG 1 tablet Orally Once a day for 90 days 11/01/2022 11/02/2024 Active Encounters Encounter Location Date Provider Diagnosis [place] [facility] [address] [facility] [address] [place] [address] 02/06/2024 Danyel Tello PLAN OF TREATMENT Medication [...] Name:Danyel Tello , 08/20/2024 02:45:00 PM, [address] [facility], [facility] [address], [place], [address], Progress Notes * GUANACO ECHEVARRIADOB: [birth year] (59 yo M)Acc No.[id number]:02/06/2024 Patient: GUANACO ECHEVARRIA :1965 Age:59 Y Sex:Male Address:[address] [place] [address] * Refills Refill Doxazosin Mesylate Tablet, 2 MG, Orally, 90 Tablet, 1 tablet, Once a day, 90 days, Refills=2 Refill Calcitriol Capsule, 0.25 MCG, Orally, 90 Capsule, 1 capsule, Once a day, 90 day(s), Refills=2 Start Ergocalciferol Capsule, 1.25 MG (87672 UT), Orally, 13, 1 capsule, Once a week, 90 day(s), Refills=2 * true * Date:
--- OUTSIDE RECORDS SUMMARY | 2024-06-21 13:34 | XMS_ITS | Patient Health Record ---
Author Organization [facility] Address [address] [place] [address] Care Team Providers Care Wire Inserter Name Role Phone Danyel Tello Unavailable [phone] REASON FOR REFERRAL No Information MEDICATIONS Medication SIG (Take, Route, Frequency, Duration) Notes Start Date End Date Status Cardura 2 MG 1 tablet Orally Once a day for 90 days 03/15/2022 Active Calcitriol 0.25 MCG 1 capsule Orally Onc e a day for 90 day(s) 11/01/2022 11/02/2024 Active Ergocalciferol 1.25 MG (81698 UT) 1 capsule Orally Once a week [...] syndrome, unspecified (D46.9) Active confirmed Myelodysplastic syndrome (549884795) Problem Secondary hyperparathyroidism, not elsewhere classified (E21.1) Active confirmed Secondary hyperparathyroidism (47062561) Problem 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) Active confirmed Angina (563149679 ) Problem Renal osteodystrophy (N25.0) Active confirmed Renal osteodyst rophy (07059778) Problem Secondary hyperparathyroidism of renal origin (N25.81) Active confirmed Secondary hyperparathyroidism of renal origin (19566476) Problem Proteinuria, unspecified (R80.9) Active confirmed Proteinu tala (69350058) Problem Essential hypertension (I10) Active confirmed Essential hypertension (10430718) Problem Bacteriuria (R82.71) Active confirmed B acteriuria (89136653) Problem Chronic kidney disease, stage 3 unspecified (N18.30) Active confirmed Chronic kidney disease stage 3 (disorder) (084574052) Encounters Encounter Location Date Provider Diagnosis [facility] [address] [place] [address] 07/18/2023 Danyel Tello Chronic kidney disea se, stage 2 (mild) N18.2 ; Bacteriuria R82.71 ; Renal osteodystrophy N25.0 ; Secondary hyperparathyroidism, not elsewhere classified E21.1 and Essential (primary) hypertension I10 [facility] [address] [place] [address] 10/17/2023 Danyel Tello Chronic kidney disea se, stage 3 unspecified N18.30 ; Renal osteodystrophy N25.0 ; Essential (primary) hypertension I10 ; Bacteriuria R82.71 and Secondary hyperparathyroidism, not elsewhere classified E21.1 [facility] [address] [place] [address] 01/16/2024 Danyel Tello [facility] [address] [place] [address] 02/06/2024 Danyel Tello Chronic kidney disea se, stage 3 unspecified N18.30 ; Essential (primary) hypertension I10 ; Hypo-osmolality and hyponatremia E87.1 and Renal osteodystrophy N25.0 [facility] [address] [place] [address] 05/21/2024 Danyel Tello Chronic kidney disea se, stage 3 unspecified N18.30 ; Bacteriuria R82.71 ; Renal osteodystrophy N25.0 ; Secondary hyperparathyroidism, not elsewhere classified E21.1 ; Essential hypertension I10 ; Secondary hyperparathyroidism of renal origin N25.81 ; Atherosclerotic heart disease of [place] coronary artery with unspecified angina pectoris I25.119 ; Myelodysplastic syndrome, unspecified D46.9 and Proteinuria, unspecified R80.9 [facility] [address] [place] [address] 07/18/2023 Danyel [facility] [address] [place] [address] 02/06/2024 Danyel Tello ASSESSMENTS Encounter Date Diagnosis [...] N25.81) 05/21/2024 Atherosclerotic hear t disease of [place] coronary artery with unspecified angina pectoris (ICD-10 - I25.119) 05/21/2024 Myelodysplastic syndrome, unspecified (ICD-10 - D46.9) 05/21/2024 Proteinuria, unspecified (ICD-10 - R80.9) PLAN OF TREATMENT Next Appt Details Provider Name:Danyel Tello , 08/20/2024 02:45:00 PM, [address], [facility], [place], [address],
--- OUTSIDE RECORDS SUMMARY | 2024-06-21 13:34 | XMS_ITS | Continuity of Care Document ---
Author Name [facility] Organization [facility] Care Team Providers Care Budget Technician Name Role Phone [facility] Unavailable Unavailable Encounters [...] ADM Date DC Date Status Disposition Source [facility] Outpatient Encounter [id number] 01/07 [facility] Social History Combined list of available smoking, tobacco, and other social history from Department of Defense and Veterans Affairs facilities. Social History Type Response Date Comment Sourc e This section is an empty social history section. DoD
--- OUTSIDE RECORDS SUMMARY | 2024-06-21 13:34 | XMS_ITS | Clinical Summary ---
Author Organization [facility] Address [address] [place] [address] Care Team Providers Care Corporate Sales Manager Name Role Phone Jaime Fall MD Primary Care Provider [phone] Danyel Tello MD Unavailable [phone] Allergies Active Allergy Reactions Criticality Noted [...] place to sleep or slept in a detention (including now)? No 09/04/2022 Sex and Gender [...] 5 Years) and At-Risk Patients (6 to 49 Years) Aged Out No longer eligible based on patient's age to complete this topic RSV Immunizations Under 20 Months Aged Out No longer eligible based on patient's age to complete this topic Medical Devices Implanted Type Area Buffing Wheel Former Machine Device Identifier Shelf Expiration Date Model / Serial / Lot Graft Bone I Factor 1cc Allograft Putty Syringe - [id number] Implanted:Qty: 1 on 09/04/2022 by Dion Garcia MD at [facility] Bone N/A: Spine Lumbar [employer] [id number] 02/01/2025 700-010 / / [id number] Agent Hemostatic Thrombin Sterile Kit Matrix Surgiflo 8ml - [id number] Implanted:Qty: 3 on 09/04/2022 by Dion Garcia MD at [facility] [place] Sealant N/A: Spine Lumbar [employer] - [employer] [id number] 11/03/2023 2994 / / [id number] Kevin Implanted:Qty: 1 on 09/04/2022 by Dion Garcia MD at [facility] [place] N/A: Spine Lumbar ORTHOFIX 52-6040 / / Kevin Implanted:Qty: 1 on 09/04/2022 by Dion Garcia MD at [facility] [place] Left: Spine Lumbar ORTHOFIX 52-6045 / / Interbody Cage Implanted:Qty: 1 on 09/04/2022 by Dion Garcia MD at [facility] [place] N/A: Spine Lumbar [id number] 12/27/2026 [id number] 10 / / [id number] Description:corelink Interbody Cage Implanted:Qty: 1 on 09/04/2022 by Dion Garcia MD at [facility] [place] N/A: Spine Lumbar [id number] 12/27/2026 [id number] 10 / / [id number] Description:corelink Set Screw Implanted:Qty: 4 on 09/04/2022 by Dion Garcia MD at [facility] [place] N/A: Spine Lumbar ORTHOFIX 36-2001 / / Top Loading Body Implanted:Qty: 4 on 09/04/2022 by Dion Garcia MD at [facility] [place] N/A: Spine Lumbar ORTHOFIX 36-2101 / / Screw Implanted:Qty: 1 on 09/04/2022 by Dion Garcia MD at [facility] [place] N/A: Spine Lumbar ORTHOFIX 44-5545 / / Screw Implanted:Qty: 1 on 09/04/2022 by Dion Garcia MD at [facility] [place] N/A: Spine Lumbar ORTHOFIX 44-0822 / / Screw Implanted:Qty: 2 on 09/04/2022 by Dion Garcia MD at [facility] [place] N/A: Spine Lumbar ORTHOFIX 44-2987 / / Explanted Type Area Buffing Wheel Former Machine Device Identifier Shelf Expiration Date Model / Serial / Lot Kevin Explanted:Qty: 1 on 09/04/2022 by Dion Garcia MD at [facility] [place] Left: Spine Lumbar ORTHOFIX 28-3135 / / Insurance [id number] MEDICAID Advance Directives * Full Code (Latest Code Status on File) Date Activated Date Inactivated Comments 09/10/2022 9:13 AM * Full Code Date Activated Date Inactivated Comments 09/04/2022 3:06 PM 09/06/2022 3:50 PM Care Teams Corporate Sales Manager Relationship Specialty Start Date End Date Jaime Fall MD [address] [place] [address] PCP - General INTERNAL MEDICINE 08/15/22 Danyel Tello MD [address] [place] [phone] NEPHROLOGY 08/29/22
--- OUTSIDE RECORDS SUMMARY | 2024-06-21 13:34 | XMS_ITS ---
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) Active confirmed Angina (010011998 ) Problem Myelodysplastic syndrome, unspecified (D46.9) Active confirmed Myelodysplastic syndrome (132073343) Problem Proteinuria, unspecified (R80.9) Active confirmed Proteinu tala (83371818) Encounters Encounter Location Date Provider Diagnosis [place] [facility] [address] [address] 05/21/2024 Danyel Tello Chronic kidney disea se, stage 3 unspecified N18.30 ; Bacteriuria R82.71 ; Renal osteodystrophy N25.0 ; Secondary hyperparathyroidism, not elsewhere classified E21.1 ; Essential hypertension I10 ; Secondary hyperparathyroidism of renal origin N25.81 ; Atherosclerotic heart disease of [place] coronary artery with unspecified angina pectoris I25.119 [...] N25.81) 05/21/2024 Atherosclerotic hear t disease of [place] coronary artery with unspecified angina pectoris (ICD-10 - I25.119) 05/21/2024 Myelodysplastic syndrome, unspecified (ICD-10 - D46.9) 05/21/2024 Proteinuria, unspecified (ICD-10 - R80.9) PLAN OF TREATMENT Next Appt Details Provider Name:Danyel Tello , 08/20/2024 02:45:00 PM, [address] [facility] [address], [place], [facility], Progress Notes * GUANACO ECHEVARRIADOB: [birth year] (59 yo M)Acc No.[id number]:05/21/2024 Progress Notes Patient: GUANACO ECHEVARRIA Provider: MD SHAHLA, F.A.C.P, F.A.S.N. :1965 Age:59 Y Sex:Male Date:05/21/2024 Address:[address] [place] [address] Subjective: * Chief Complaints: * * Medical History: Objective: Assessment: * Assessment: 1. Chronic kidney disease, stage 3 unspecified - N18.30 (Primary) 2. Bacteriuria - R82.71 3. Renal osteodystrophy - N25.0 4. Secondary hyperparathyroidism, not elsewhere classified - E21.1 5. Essential hypertension - I10 6. Secondary hyperparathyroidism of renal origin - N25.81 7. Atherosclerotic heart disease of [place] coronary artery with unspecified angina pectoris - I25.119 8. Myelodysplastic syndrome, unspecified - D46.9 9. Proteinuria, unspecified - R80.9 Plan: * Treatment: * Billing Information: * Visit Code: 14580 Office Visit, Est Pt., Level 5. * Procedure Codes: * Sign off status: Pending * Provider: MD SHAHLA, F.A.C.P, F.A.S.N. Date: 05/21/2024
[2024-06-21 13:43] VITALS: BP 130/77; PULSE 70; RESP 18; TEMP 36.7; O2SAT 99
--- OUTSIDE RECORDS SUMMARY | 2024-06-21 14:10 | XMS_ITS | Clinical Summary ---
Author Organization [facility] Address [address] [place] [address] Care Team Providers Care Hypoid Gear Generator Name Role Phone Jaime Fall MD Primary Care Provider [phone] Danyel Tello MD Unavailable [phone] Allergies Active Allergy Reactions Criticality Noted [...] place to sleep or slept in a custodial (including now)? No 09/04/2022 Sex and Gender [...] this topic Medical Devices Implanted Type Area Top Frame Fitter Device Identifier Shelf Expiration Date Model / Serial / Lot Graft Bone I Factor 1cc Allograft Putty Syringe - [id number] Implanted:Qty: 1 on 09/04/2022 by Dion Garcia MD at [facility] Bone N/A: Spine Lumbar [employer] [id number] 02/01/2025 700-010 / / [id number] Agent Hemostatic Thrombin Sterile Kit Matrix Surgiflo 8ml - [id number] Implanted:Qty: 3 on 09/04/2022 by Dino Garcia MD at [facility] Sealant N/A: Spine Lumbar [employer] [id number] 11/03/2023 2994 / / [id number] Kevin Implanted:Qty: 1 on 09/04/2022 by Dion Garcia MD at [facility] N/A: Spine Lumbar ORTHOFIX 52-6040 / / Kevin Implanted:Qty: 1 on 09/04/2022 by Dion Garcia MD at [facility] Left: Spine Lumbar ORTHOFIX 52-6045 / / Interbody Cage Implanted:Qty: 1 on 09/04/2022 by Dion Garcia MD at [facility] N/A: Spine Lumbar [id number] 12/27/2026 [id number] 10 / / [id number] Description:corelink Interbody Cage Implanted:Qty: 1 on 09/04/2022 by Dion Garcia MD at [facility] N/A: Spine Lumbar [id number] 12/27/2026 [id number] / / [id number] Description:corelink Set Screw Implanted:Qty: 4 on 09/04/2022 by Dion Garcia MD at [facility] N/A: Spine Lumbar ORTHOFIX 36-2001 / / Top Loading Body Implanted:Qty: 4 on 09/04/2022 by Dion Garcia MD at [facility] N/A: Spine Lumbar ORTHOFIX 36-2101 / / Screw Implanted:Qty: 1 on 09/04/2022 by Dion Garcia MD at [facility] N/A: Spine Lumbar ORTHOFIX 44-5545 / / Screw Implanted:Qty: 1 on 09/04/2022 by Dion Garcia MD at [facility] N/A: Spine Lumbar ORTHOFIX 44-6411 / / Screw Implanted:Qty: 2 on 09/04/2022 by Dion Garcia MD at [facility] N/A: Spine Lumbar ORTHOFIX 44-3135 / / Explanted Type Area Top Frame Fitter Device Identifier Shelf Expiration Date Model / Serial / Lot Kevin Explanted:Qty: 1 on 09/04/2022 by Dion Garcia MD at [facility] Left: Spine Lumbar ORTHOFIX 28-3454 / / Insurance [id number] [place] [address] MEDICAID Advance Directives * Full Code (Latest Code Status on File) Date Activated Date Inactivated Comments 09/10/2022 9:13 AM * Full Code Date Activated Date Inactivated Comments 09/04/2022 3:06 PM 09/06/2022 3:50 PM Care Teams Hypoid Gear Generator Relationship Specialty Start Date End Date Jaime Fall MD [address] [place] [address] PCP - General INTERNAL MEDICINE 08/15/22 Danyel Tello MD [address] [place] [phone] NEPHROLOGY 08/29/22
--- OUTSIDE RECORDS SUMMARY | 2024-06-21 14:10 | XMS_ITS | Continuity of Care Document ---
Author Name [facility] Organization [facility] Care Team Providers Care Pet Care Associate Name Role Phone [facility] Unavailable Unavailable Encounters [...] ADM Date DC Date Status Disposition Source [facility] Outpatient Encounter [id number] 01/07 [facility] Social History Combined list of available smoking, tobacco, and other social history from Department of Defense and Veterans Affairs facilities. Social History Type Response Date Comment Sourc e This section is an empty social history section. DoD
--- OUTSIDE RECORDS SUMMARY | 2024-06-21 14:10 | XMS_ITS | Continuity of Care Document ---
Author Organization [facility] Address [address] [place] [address] [address] [place] [address] Phone Care Team Providers Care Box Strapper Name Role Phone Alfredo Pavon Unavailable Unavailable [...] Diagnoses Date Provider Providers Copied on Encounter [facility], [address] [place] [address] [address], [place], [place], [id number], [place] tel:[phone] [facility] No Information 0-201 0 Librado Fuentes. [address] [place] , [address], [place], [address], [place]. tel:[phone] [facility], [address] [place] [address] [address], [place], [place], [id number], [place] tel:[phone] [facility] [place] No Information Nov2 2-200 9 Krishnasamy Jose. [address] [place], [place] [address]ate [place] [address], [place], [place], [facility], [place]. tel:[phone] Referring Provider: Jose bloom, [address] [place], [place] [address]ate [address], [place], [place], [facility]. tel:[phone] [facility], [address], [place], [place], [id number], [place] tel:[phone] [facility] [place] No Information 2 1-200 9 Librado Fuentes. [address] [place] [address] , [address], [place], [place], [facility], [place]. tel:[phone] Referring Provider: Alfredo Mathew, [address] [place], [place] [address] [place] [address], [place], [place], [facility]. tel:[phone] Office/outpat ient Visit, Est [facility], [address] [place] [address] [address], [place], [place], [id number], [place] tel:[phone] [facility] No Information Feb-0 8-200 8 Librado Fuentes. [address] [place] [address] , [address], [place], [place], [facility], [place]. tel:[phone] [facility], [address], [place], [place], [id number], [place] tel:[phone] [facility] [place] No Information 7-200 8 Krishnaslio Jose. [address] [place], [place] [address] [place] [address], [place], [place], [facility], [place]. tel:[phone] Referring Provider: Jose bloom, [address] [place], [place] [address] [place] [address], [place], [place], [facility]. tel:[phone] [facility], [address], [place], [place], [id number], [place] tel:[phone] [facility] [place] No Information 2-200 8 Dimitris Garcia. [facility] [address], [place], [address], [place]. tel:[phone] Referring Provider: Jose bloom, [address] [place] [address] [address], [place], [address]. tel:[phone] [facility], [address] [facility], [place], [place], [id number], [place] tel:[phone] [facility] No Information 2-200 8 Dimitris Garcia. [address] [place] [address], [place], [address], [place]. tel:[phone] [facility], [address], [place], [place], [id number], [place] tel:[phone] [facility] No Information 8-200 7 Vicky Ramirez. [address] [facility], [address], [place], [place], [address], [place]. tel:[phone] Family History Family Member Type Diagnosis Age At Onset No Information Payers Payer name Insurance type Covered green party ID Authoriza tion(s) Medicare [facility] [id number] Medicaid [facility] [id number] Social History Type Description Quantity Date Captured [...]
[2024-06-21] MEDS: HYDROcodone/acetaminophen (*CRX) 5-325 MG TABLET 1 TAB PO (14:43)
--- NOTE | 2024-06-21 15:00 | ED_ITS ---
HPI - Extremity Injury (Lower) General Chief Complaint: Extremity Injury, Lower Stated Complaint: Right knee pain-Surg 06/10/24 Time Seen by Provider: 06/21/24 14:00 Source: patient Mode of arrival: ambulatory Limitations: no limitations History of Present Illness HPI Narrative: Patient is a 59-year-old male who presents the ED with report of right knee pain. Patient reports he underwent meniscus surgery on 06/[address] Baker at the [facility]. Has been doing very well since then. Has been ambulatory without issue. Has not required bracing. 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 Has had increased pain/swelling, difficulty ambulating since then. Denies numbness. Has a f/u appointment with his surgeon on Sunday. Has been taking [place] for the pain Related Data Home Medications ?Medication ?Instructions ?Recorded ?Confirmed ?Last Taken ?Type allopurinol 100 mg tablet 100 mg PO DAILY 09/12/23 10/04/23 Unknown History amlodipine 10 mg tablet 10 mg PO DAILY 09/12/23 10/04/23 Unknown History atorvastatin 20 mg tablet 20 mg PO DAILY 09/12/23 10/04/23 Unknown History buspirone 30 mg tablet 30 mg PO BID 09/12/23 10/04/23 Unknown History calcitriol 0.25 mcg capsule 0.25 mcg PO DAILY 09/12/23 10/04/23 Unknown History cariprazine 6 mg capsule (Vraylar) 6 mg PO DAILY 09/12/23 10/04/23 Unknown History cholecalciferol (vitamin D3) 1,250 1,250 mcg PO WEEKLY 09/12/23 10/04/23 Unknown History mcg (50,000 unit) capsule dapagliflozin propanediol 5 mg 5 mg PO DAILY 09/12/23 10/04/23 Unknown History tablet (Farxiga) doxazosin 2 mg tablet 2 mg PO DAILY 09/12/23 10/04/23 Unknown History lisinopril 40 mg tablet 40 mg PO DAILY 09/12/23 10/04/23 Unknown History metformin 1,000 mg tablet 1,000 mg PO BID 09/12/23 10/04/23 Unknown History propranolol 40 mg tablet 40 mg PO Q12H 09/12/23 10/04/23 Unknown History quetiapine 25 mg tablet 25 mg PO TID 09/12/23 10/04/23 Unknown History vortioxetine 20 mg tablet 20 mg PO DAILY 09/12/23 10/04/23 Unknown History (Trintellix) testosterone 100 mg/mL 100 mg IM DIRECTED 09/21/23 10/04/23 Unknown History intramuscular suspension Allergies Allergy/AdvReac Type Severity Reaction Status Date / Time Penicillins Allergy Mild Hives Verified 06/21/24 13:31 Review of Systems Review of Systems: All systems reviewed & are unremarkable except as noted in HPI. All systems reviewed & are unremarkable except as noted in HPI and below PMFSH Past Medical History Medical History BPH (benign prostatic hyperplasia) Depression Diabetes Anxiety Hyperlipidemia HTN (hypertension) with goal to be determined Gout Entrapment of left ulnar nerve at elbow Left carpal tunnel syndrome Social History Social History Smoking status: Never smoker Second hand tobacco smoke exposure: Yes Substance use type: does not use Living arrangements: with family Spiritual care concerns: No Exam Narrative: GENERAL: Well appearing, well-nourished, non-toxic, in no acute distress. HEAD: Normocephalic, atraumatic. RESPIRATORY: Airway patent, respirations nonlabored. CARDIOVASCULAR: Regular rate and rhythm. Pedal pulses are strong and easily palpable. MUSCULOSKELETAL: Moves all extremities. Two small surgical incisions over right anterior knee with sutures in place, no drainage, inflammation, surrounding signs of infection. Mild swelling throughout right anterior knee with diffuse tenderness. Slight limited range of motion due to pain. SKIN: Warm, dry, normal color. NEURO: A&O X3. Speech clear. No ataxic movements. PSYCHIATRIC: Appropriate mood and affect. Normal interaction. Course Vital Signs Vital signs: Vital Signs Temperature 98.1 F 06/21/24 13:43 Pulse Rate 70 06/21/24 13:43 Respiratory Rate 18 06/21/24 13:43 Blood Pressure 130/77 06/21/24 13:43 Pulse Oximetry 99 06/21/24 13:43 Oxygen Delivery Room Air 06/21/24 13:43 Temperature 98.1 F 06/21/24 13:43 Pulse Rate 70 06/21/24 13:43 Respiratory Rate 18 06/21/24 13:43 Blood Pressure 130/77 06/21/24 13:43 Pulse Oximetry 99 06/21/24 13:43 Oxygen Delivery Room Air 06/21/24 13:43 MDM - Extremity Injury (Lower) MDM Narrative Medical decision making narrative: Patient presented to ED status post right knee meniscal surgery on 06/10 with twisting injury last night, heard a pop. Difficulty bearing weight, increased pain and swelling. Vital signs are stable. Patient is neurovascularly intact. X-ray of right knee showing moderate joint effusion. Unclear if this is new from last night or partially related to previous surgery. Will place patient in knee immobilizer, given crutches, advised to continue rice therapy, advised to continue pain medication as needed. Patient has a follow-up appointment with his surgeon on Sunday. Advised to keep this appointment, discussed injury, discussed possibility patient needing MRI to further evaluate for ligamentous injury. Patient given return precautions. He agrees with plan. Discharged in stable condition. Medical Records Attestation: I reviewed the patient's medical records. Imaging Data Attestation: I personally reviewed and interpreted this imaging study as follows: Radiologist's impression: ITS Impressions Knee X-Ray 06/21/24 14:02 IMPRESSION: 1. Moderate-sized right knee joint effusion. No acute osseous abnormality. Discharge Plan Discharge Clinical Impression: Effusion of right knee joint Sprain of right knee Qualifiers: Encounter type: initial encounter Involved ligament of knee: unspecified ligament Qualified Code(s): S83.91XA - Sprain of unspecified site of right knee, initial encounter Patient Disposition: Home Condition: Stable Instructions: Antibiotic Form, Knee Sprain (ED), Swollen Knee Joint (ED) Additional Instructions: Recommend rest, frequent icing to knee, utilize knee immobilizer for support and stabilization. Utilize crutches as needed for assistance with walking. Continue pain medication as needed. Follow up with your surgeon at your scheduled appointment on Sunday. Return to the ED if you experience worsening or severe pain or swelling, recurrent injury, numbness, or any other symptoms of concern. Patient Language: Setswana Prescriptions: New hydrocodone-acetaminophen 5-325 mg tablet 1 tablet PO Q6H PRN (Reason: pain) Qty: 6 0RF No Action allopurinol 100 mg tablet 100 mg PO DAILY calcitriol 0.25 mcg capsule 0.25 mcg PO DAILY propranolol 40 mg tablet 40 mg PO Q12H buspirone 30 mg tablet 30 mg PO BID metformin 1,000 mg tablet 1,000 mg PO BID Trintellix 20 mg tablet 20 mg PO DAILY Vraylar 6 mg capsule 6 mg PO DAILY atorvastatin 20 mg tablet 20 mg PO DAILY lisinopril 40 mg tablet 40 mg PO DAILY amlodipine 10 mg tablet 10 mg PO DAILY cholecalciferol (vitamin D3) 1,250 mcg (50,000 unit) capsule 1,250 mcg PO WEEKLY doxazosin 2 mg tablet 2 mg PO DAILY quetiapine 25 mg tablet 25 mg PO TID dapagliflozin propanediol [Farxiga] 5 mg tablet 5 mg PO DAILY testosterone 100 mg/mL Suspension 100 mg IM DIRECTED tramadol 50 mg tablet 50 mg PO Q6H PRN (Reason: pain) Qty: 12 0RF Follow-up/Referrals: Fall,Jaime Lawler MD [Primary Care Provider] - Time of Disposition: 15:05
== END 2024-06-21 15:17 | disposition home or self-care (01) ==
PROVIDERS: Emergency Provider Physician Assistant; PCP Internal Medicine
DX: S83.91XA Sprain of unspecified site of right knee, initial encounter (principal); X50.1XXA Overexertion from prolonged static or awkward postures, initial encounter; E11.9 Type 2 diabetes mellitus without complications; E78.5 Hyperlipidemia, unspecified; I10 Essential (primary) hypertension; F32.A Depression, unspecified
CPT/HCPCS: 73564; 99283; A9270

== ENCOUNTER 2024-08-27 14:16 | Outpatient (CLI) | payer MEDICARE, MEDICAID, SELFPAY ==
--- NOTE | ~2024-08-27 | MR_ITS ---
MRI of the right knee Clinical history: Pain Technique: Coronal proton density and proton density-weighted images, sagittal proton-density and T2 fat-sat images, and axial proton-density fat-saturated images were acquired. Findings: Anterior and posterior cruciate ligaments are intact. Medial collateral ligament and the la teral collateral ligament complex are intact. Popliteus tendon is intact. There is a radial tear at the posterior root of the medial meniscus. Lateral meniscus is intact. There is high-grade chondral malacia along the medial patellar facet. There is focal moderate to high -grade chondral malacia the central aspect of the medial femoral condyle. Bone marrow signals are unr emarkable. Extensor mechanism is intact. Large joint effusion present. No Pollard's cyst. Impression: Radial tear at the posterior root of the medial meniscus. 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 Large joint effusion. Reviewed, dictated and finalized at [facility]. Impression: Radial tear at the posterior root of the medial meniscus. 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 Large joint effusion.
== END 2024-08-27 14:17 | disposition home or self-care (01) ==
LOC: MICIMG 14:17
PROVIDERS: PCP Internal Medicine; Visit Provider Orthopaedic Surgery
DX: M25.461 Effusion, right knee (principal); S83.241A Other tear of medial meniscus, current injury, right knee, initial encounter; X58.XXXA Exposure to other specified factors, initial encounter
CPT/HCPCS: 73721